=== PATIENT | male | born 1965 | race Caucasian/White ===

== ENCOUNTER 2020-08-16 08:34 | Outpatient (REF) | payer OTHER, SELFPAY ==
[2020-08-16 10:14] LABS: COVID-19 Test Negative (Negative)
== END 2020-08-16 08:35 | disposition home or self-care (01) ==
LOC: HO.LAB 08:34
PROVIDERS: Visit Provider Internal Medicine
DX: Z20.828 Contact with and (suspected) exposure to other viral communicable diseases (principal)
CPT/HCPCS: 87635

== ENCOUNTER 2020-08-20 09:48 | Outpatient (REF) | payer OTHER, SELFPAY ==
[2020-08-20 11:28] LABS: COVID-19 Test Negative (Negative)
== END 2020-08-20 09:49 | disposition home or self-care (01) ==
LOC: HO.LAB 09:48
PROVIDERS: PCP Internal Medicine; Visit Provider Internal Medicine
DX: Z20.828 Contact with and (suspected) exposure to other viral communicable diseases (principal)
CPT/HCPCS: 87635

== ENCOUNTER 2020-08-30 12:40 | Outpatient (REF) | payer OTHER, SELFPAY | END 2020-08-30 12:41 | disposition home or self-care (01) | LOC: HO.MDS 12:40 | PROVIDERS: PCP Internal Medicine; Visit Provider Internal Medicine Pulmonary Disease | DX: J45.909 Unspecified asthma, uncomplicated (principal) | CPT/HCPCS: 96372; J0517 ==

== ENCOUNTER 2020-09-04 15:52 | Outpatient (REF) | payer OTHER, SELFPAY ==
[2020-09-04 18:28] LABS: COVID-19 Test Negative (Negative)
== END 2020-09-04 15:53 | disposition home or self-care (01) ==
LOC: HO.LAB 15:52
PROVIDERS: Visit Provider Internal Medicine
DX: Z20.828 Contact with and (suspected) exposure to other viral communicable diseases (principal)
CPT/HCPCS: 87635; C9803

== ENCOUNTER 2020-10-02 08:55 | Outpatient (REF) | payer OTHER, SELFPAY ==
[2020-10-02 09:18] LABS: COVID-19 Test Negative (Negative)
== END 2020-10-02 08:56 | disposition home or self-care (01) ==
LOC: HO.EMPCOV 08:55
PROVIDERS: Visit Provider Internal Medicine
DX: Z20.828 Contact with and (suspected) exposure to other viral communicable diseases (principal)
CPT/HCPCS: 87635; C9803

== ENCOUNTER → 2020-10-04 09:05 | Outpatient (BNVA) | payer OTHER, SELFPAY | PROVIDERS: PCP Internal Medicine; Referring Provider Internal Medicine; Visit Provider Internal Medicine Pulmonary Disease | DX: Z76.89 Persons encountering health services in other specified circumstances (principal) ==

== ENCOUNTER 2020-10-05 07:49 | Outpatient (REF) | payer OTHER, SELFPAY ==
[2020-10-05 08:42] LABS: COVID-19 Test Negative (Negative)
== END 2020-10-05 07:50 | disposition home or self-care (01) ==
LOC: HO.EMPCOV 07:49
PROVIDERS: Visit Provider Internal Medicine
DX: Z20.828 Contact with and (suspected) exposure to other viral communicable diseases (principal)
CPT/HCPCS: 87635; C9803

== ENCOUNTER 2020-10-25 08:38 | Outpatient (REF) | payer OTHER, SELFPAY | END 2020-10-25 08:39 | disposition home or self-care (01) | LOC: HO.MDS 08:38 | PROVIDERS: PCP Internal Medicine; Visit Provider Internal Medicine Pulmonary Disease | DX: J45.50 Severe persistent asthma, uncomplicated (principal) | CPT/HCPCS: 96372; J0517 ==

== ENCOUNTER 2020-10-25 12:03 | Outpatient (RCR) | payer OTHER, SELFPAY ==
[2020-10-30 09:48] LABS: SARS-COV-2 PCR UMBRL Not Detected
[2020-11-07 09:52] LABS: SARS-COV-2 PCR UMBRL NOT DETECTED
[2020-11-11 09:59] LABS: SARS-COV-2 PCR UMBRL NEGATIVE
== END 2020-10-25 12:04 | disposition home or self-care (01) ==
LOC: HO.EMPCOV 12:03
PROVIDERS: Visit Provider Internal Medicine
DX: Z20.828 Contact with and (suspected) exposure to other viral communicable diseases (principal)
CPT/HCPCS: 36415; C9803; U0003

== ENCOUNTER 2020-12-20 08:22 | Outpatient (REF) | payer OTHER, SELFPAY | END 2020-12-20 08:23 | disposition home or self-care (01) | LOC: HO.MDS 08:22 | PROVIDERS: PCP Internal Medicine; Visit Provider Internal Medicine Pulmonary Disease | DX: J45.50 Severe persistent asthma, uncomplicated (principal) | CPT/HCPCS: 96372; J0517 ==

== ENCOUNTER → 2021-01-02 13:09 | Outpatient (BNVA) | payer OTHER, SELFPAY | PROVIDERS: PCP Internal Medicine; Visit Provider Physician Assistant | DX: Z13.89 Encounter for screening for other disorder (principal) | CPT/HCPCS: 99213 ==

== ENCOUNTER 2021-01-09 15:02 | Emergency (ER) | payer OTHER, SELFPAY ==
[2021-01-09 15:13] VITALS: BP 137/64; PULSE 85; RESP 26; TEMP 36.5; O2SAT 95; BMI 23.7
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
[2021-01-09 16:13] LABS: MANUAL DIFF FLAG NO
[2021-01-09 16:16] LABS: Basophils Percent Auto 0.1 % (0-2); Hematocrit 41.4 % (42-52); Hemoglobin 14.8 g/dl (14.0-18.0); Imm Gran Abs Auto 0.04 X10*3/uL (0.00-0.03); Imm Gran Pct Auto 0.6 % (0.0-0.4); Mean Corpuscular HGB Conc 35.7 g/dl (31.0-36.0); Mean Corpuscular Hemoglobin 31.2 pg (27.0-33.0); Mean Corpuscular Volume 87.3 fL (80-98); Mean Platelet Volume 9.8 fL (9.4-12.4); Monocytes Absolute Auto 0.6 X10*3/uL (0.1-1.2); Monocytes Percent Auto 9.1 % (2-11); Neutrophils Absolute Auto 4.2 X10*3/uL (2.0-8.3); Neutrophils Percent Auto 61.2 % (45-73); Platelet Count 189 X10*3/uL (160-400); Red Blood Count 4.74 X10*6/uL (4.60-5.80); Red Cell Distribution Width 11.9 % (11.0-16.0); White Blood Count 6.9 X10*3/uL (4.8-10.8)
[2021-01-09 16:42] LABS: Alanine Aminotransferase 14 U/L (0-40); Albumin Level 4.1 g/dL (3.5-5.0); Alkaline Phosphatase 78 U/L (39-117); Anion Gap 12 (12-20); Aspartate Amino Transferase 18 U/L (5-37); Bilirubin Direct 0.2 mg/dL (0.0-0.5); Bilirubin Total 0.7 mg/dL (0.0-1.0); Blood Urea Nitrogen 16 mg/dL (9-16); Calcium 8.9 mg/dL (8.4-10.2); Carbon Dioxide 26 mmol/L (22-29); Chloride 105 mmol/L (96-108); Creatinine Clr Calc Pharmacy 115.4; Estimated Glomerular Filt Rate > 60; Glucose Random 95 mg/dL (60-115); Potassium 3.9 mmol/L (3.3-5.1); Sodium 139 mmol/L (135-145); Total Protein 6.7 g/dL (6.5-8.0)
[2021-01-10 09:33] LABS: HBS Num1 5.35 mIU/mL (0-7.99); HBc Num1 0.09 S/CO (0.00-0.79); Hepatitis B Core Antibody Nonreactive (Nonreactive); ~HepC Num1 0.09 S/CO (0.00-0.79); ~Hepatitis B Surface Antibody NONREACTIVE (Nonreactive); ~Hepatitis C Antibody Nonreactive (Nonreactive)
[2021-01-10 10:02] LABS: HBsAGNum1 0.18 S/CO (0.00-0.99); HIV AB/AG Nonreactive (Nonreactive); HIV Num 1 0.07 S/CO (0.00-0.99); Hepatitis B Surface Antigen Negative (Negative)
== END 2021-01-09 17:12 | disposition home or self-care (01) ==
PROVIDERS: Physician Assistant Medical; Emergency Provider Internal Medicine; PCP Internal Medicine
DX: S60.572A Other superficial bite of hand of left hand, initial encounter (principal); S60.512A Abrasion of left hand, initial encounter; M79.642 Pain in left hand; Y04.1XXA Assault by human bite, initial encounter; Y93.9 Activity, unspecified; Y92.9 Unspecified place or not applicable; Y99.0 Civilian activity done for income or pay
CPT/HCPCS: 36415; 80048; 80076; 83735; 85025; 85610; 86704; 86706; 86803; 87340; 87389; 90471; 90715; 99284

== ENCOUNTER → 2021-01-11 09:43 | Outpatient (BNVA) | payer OTHER, SELFPAY | PROVIDERS: PCP Internal Medicine; Visit Provider Internal Medicine | DX: Z13.89 Encounter for screening for other disorder (principal) | CPT/HCPCS: 99213 ==

== ENCOUNTER 2021-02-14 09:07 | Outpatient (REF) | payer OTHER, SELFPAY | END 2021-02-14 09:08 | disposition home or self-care (01) | LOC: HO.MDS 09:07 | PROVIDERS: PCP Internal Medicine; Visit Provider Internal Medicine Pulmonary Disease | DX: J45.50 Severe persistent asthma, uncomplicated (principal) | CPT/HCPCS: 96372; J0517 ==

== ENCOUNTER → 2021-03-01 08:30 | Outpatient (BNVA) | payer OTHER, SELFPAY | PROVIDERS: PCP Internal Medicine; Visit Provider Physician Assistant Medical | DX: Z13.89 Encounter for screening for other disorder (principal) | CPT/HCPCS: 99201 ==

== ENCOUNTER 2021-04-11 08:06 | Outpatient (REF) | payer OTHER, SELFPAY | END 2021-04-11 08:07 | disposition home or self-care (01) | LOC: HO.MDS 08:06 | PROVIDERS: PCP Internal Medicine; Visit Provider Internal Medicine Pulmonary Disease | DX: J45.50 Severe persistent asthma, uncomplicated (principal) | CPT/HCPCS: 96372; J0517 ==

== ENCOUNTER 2021-06-19 08:54 | Outpatient (REF) | payer OTHER, SELFPAY | END 2021-06-19 08:55 | disposition home or self-care (01) | LOC: HO.MDS 08:54 | PROVIDERS: PCP Internal Medicine; Visit Provider Internal Medicine Pulmonary Disease | DX: J45.50 Severe persistent asthma, uncomplicated (principal) | CPT/HCPCS: 96372; J0517 ==

== ENCOUNTER 2021-07-17 14:06 | Outpatient (REF) | payer OTHER, SELFPAY ==
--- NOTE | ~2021-07-17 | XR_ITS ---
EXAMINATION: XR BILATERAL KNEE XR AP KNEES STANDING CLINICAL INFORMATION: Bilateral knee pain. COMPARISON: None. TECHNIQUE: AP bilateral knees standing. 2 views each knee. FINDINGS: Ap Bilateral Knee: There is loss of medial compartment joint space both knees. The lateral compartment joint space is normal. No visible acute fracture or dislocation seen. No lytic process. Right Knee: There is mild loss of patellofemoral compartment joint space without bony erosive changes. There is peripatellar enthesophyte. There are no loose bodies. No joint effusion visualized. The soft tissues are normal. Left Knee: There is mild loss of vertebral compartment joint space with peripatellar enthesophyte. No abnormal joint effusion or loose body seen. No visible acute fracture or dislocation. XR/XR knee RT 2V IMPRESSION: Mild degenerative changes medial and patellofemoral compartments of both knees with peripatellar enthesophytes. No abnormal joint effusion seen. No loose bodies.
--- NOTE | ~2021-07-17 | XR_ITS ---
EXAMINATION: XR BILATERAL KNEE XR AP KNEES STANDING CLINICAL INFORMATION: Bilateral knee pain. COMPARISON: None. TECHNIQUE: AP bilateral knees standing. 2 views each knee. FINDINGS: Ap Bilateral Knee: There is loss of medial compartment joint space both knees. The lateral compartment joint space is normal. No visible acute fracture or dislocation seen. No lytic process. Right Knee: There is mild loss of patellofemoral compartment joint space without bony erosive changes. There is peripatellar enthesophyte. There are no loose bodies. No joint effusion visualized. The soft tissues are normal. Left Knee: There is mild loss of vertebral compartment joint space with peripatellar enthesophyte. No abnormal joint effusion or loose body seen. No visible acute fracture or dislocation. XR/XR knee standing BI IMPRESSION: Mild degenerative changes medial and patellofemoral compartments of both knees with peripatellar enthesophytes. No abnormal joint effusion seen. No loose bodies.
--- NOTE | ~2021-07-17 | XR_ITS ---
EXAMINATION: XR BILATERAL KNEE XR AP KNEES STANDING CLINICAL INFORMATION: Bilateral knee pain. COMPARISON: None. TECHNIQUE: AP bilateral knees standing. 2 views each knee. FINDINGS: Ap Bilateral Knee: There is loss of medial compartment joint space both knees. The lateral compartment joint space is normal. No visible acute fracture or dislocation seen. No lytic process. Right Knee: There is mild loss of patellofemoral compartment joint space without bony erosive changes. There is peripatellar enthesophyte. There are no loose bodies. No joint effusion visualized. The soft tissues are normal. Left Knee: There is mild loss of vertebral compartment joint space with peripatellar enthesophyte. No abnormal joint effusion or loose body seen. No visible acute fracture or dislocation. XR/XR knee LT 2V IMPRESSION: Mild degenerative changes medial and patellofemoral compartments of both knees with peripatellar enthesophytes. No abnormal joint effusion seen. No loose bodies.
== END 2021-07-17 14:07 | disposition home or self-care (01) ==
LOC: HO.HOSX 14:06
PROVIDERS: PCP Internal Medicine; Visit Provider Physician Assistant
DX: M17.0 Bilateral primary osteoarthritis of knee (principal)
CPT/HCPCS: 20610; 73560; 73565; J1040

== ENCOUNTER 2021-08-14 08:08 | Outpatient (REF) | payer OTHER, SELFPAY | END 2021-08-14 08:09 | disposition home or self-care (01) | LOC: HO.MDS 08:08 | PROVIDERS: PCP Internal Medicine; Visit Provider Internal Medicine Pulmonary Disease | DX: J45.50 Severe persistent asthma, uncomplicated (principal) | CPT/HCPCS: 96372; J0517 ==

== ENCOUNTER 2021-09-30 10:59 | Emergency (ER) | payer OTHER, SELFPAY ==
--- NOTE | ~2021-09-30 | XR_ITS ---
EXAMINATION: XR CHEST CLINICAL INFORMATION: Cough and congestion. COVID negative. COMPARISON: Chest 01/05/2019 TECHNIQUE: 2 views of the chest were obtained. FINDINGS: No significant abnormality is noted involving the heart, lungs, mediastinum, bony thorax or soft tissues. XR/XR chest 2V IMPRESSION: Unremarkable chest examination.
[2021-09-30 11:13] VITALS: BP 116/62; PULSE 80; RESP 18; TEMP 36.9; O2SAT 96; BMI 23.7
[2021-09-30 11:57] LABS: Adenovirus PCR Not Detected (Not Detect.); Bordetella parapertussis PCR Not Detected (Not Detect.); Bordetella pertussis PCR Not Detected (Not Detect.); Chlamydia pneumoniae PCR Not Detected (Not Detect.); Coronavirus 229E PCR Not Detected (Not Detect.); Coronavirus HKU1 PCR Not Detected (Not Detect.); Coronavirus NL63 PCR Not Detected (Not Detect.); Coronavirus OC43 PCR Not Detected (Not Detect.); Human metapneumovirus PCR Not Detected (Not Detect.); Influenza A PCR Not Detected (Not Detect.); Influenza B PCR Not Detected (Not Detect.); Mycoplasma pneumoniae PCR Not Detected (Not Detect.); Parainfluenza 1 PCR Not Detected (Not Detect.); Parainfluenza 2 PCR Not Detected (Not Detect.); Parainfluenza 3 PCR Not Detected (Not Detect.); Parainfluenza 4 PCR Not Detected (Not Detect.); RSV PCR Not Detected (Not Detect.); SARS-CoV-2 PCR Not Detected (Not Detect.)
[2021-09-30 12:03] LABS: Influenza A PCR NEGATIVE (Negative); Influenza B PCR NEGATIVE (Negative); Resp Syncy Virus RNA Qual PCR NEGATIVE (Negative); SARS COV2 PCR INHOUSE NEGATIVE (Negative)
[2021-09-30 13:09] LABS: Rhino/Enterovirus PCR Detected (Not Detect.)
--- NOTE | 2021-09-30 14:13 | ED.GENADULT ---
HPI - General Adult General Chief complaint: General Medical Stated complaint: flu symptoms Time Seen by Provider: 09/30/21 11:39 Source: patient Mode of arrival: ambulatory History of Present Illness HPI narrative: 56-year-old male with a past medical history of asthma Presenting to the ED complaining flu-like symptoms x1 week. Reports nonproductive cough, nasal congestion, sinus pain. Reports 2 negative COVID tests recently however continued symptoms. Denies fever, chills, CP, SOB, recent travel, sick contacts Onset (ago): week(s) Radiation: non-radiation Severity: mild Related Data Home Medications Medication Instructions Recorded Confirmed benralizumab 30 mg/mL subcutaneous 30 mg SUBCUT Q8W 10/04/20 10/04/20 syringe (Fasenra) Previous Rx's Medication Instructions Recorded clindamycin HCl 300 mg capsule 600 mg PO TID 10 Days #60 cap 01/09/21 albuterol sulfate 90 mcg/actuation 1 inh INHALATION QID 30 Days #1 ea 03/21/21 aerosol inhaler (ProAir HFA) beclomethasone dipropionate 80 2 spray INTRANASAL DAILY 30 Days 03/21/21 mcg/actuation nasal HFA inhaler #10.6 g (QNASL) azithromycin 250 mg tablet See Rx Instructions PO .COMPLEX 5 04/17/21 Days #6 tab fluticasone 500 mcg-salmeterol 50 1 inh INHALATION BID 30 Days #1 ea 05/09/21 mcg/dose blistr powdr for inhalation montelukast 10 mg tablet 10 mg PO DAILY #30 tab 07/08/21 albuterol sulfate 90 mcg/actuation 2 puff INHALATION Q4-6H PRN #6.7 g 09/30/21 aerosol inhaler benzonatate 200 mg capsule 200 mg PO TID PRN #20 cap 09/30/21 fluticasone propionate 50 2 spray INTRANASAL DAILY #16 g 09/30/21 mcg/actuation nasal spray,suspension (Flonase Allergy Relief) Allergies Allergy/AdvReac Type Severity Reaction Status Date / Time penicillin V Allergy Unknown hives Verified 10/04/20 09:06 Penicillins [PCN] Allergy Unknown HIVES Verified 10/04/20 09:06 Review of Systems Review of Systems: Constitutional: No Fever, No Chills ENT/Mouth: No Ear Pain, + Nasal Congestion, + Sinus Pain, No Hoarseness, No sore throat, + Rhinorrhea, No Swallowing Difficulty Cardiovascular: No Chest Pain, No SOB Respiratory: + Cough, No Sputum, No Wheezing Gastrointestinal: No Nausea, No Vomiting, No Abdominal pain Genitourinary:, No Dysuria, No Urinary Frequency, No Flank Pain Musculoskeletal: No joint pain, + Myalgias, No Joint Swelling Skin: No Skin Lesions, No rash Neuro: No Weakness Yes all other systems are reviewed and are negative [facility] Past Medical History Attestation statement: The following information was validated with the patient. 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 Physical Exam Vital Signs: Vital Signs: Last Vital Signs Temp 98.4 F 09/30/21 11:13 Pulse 80 09/30/21 11:13 Resp 18 09/30/21 11:13 BP 116/62 09/30/21 11:13 Pulse Ox 96 09/30/21 11:13 BMI result Body Mass Index 23.7 Const: General: cooperative, healthy appearing and no acute distress Orientation/consciousness: patient oriented x3 Limitations: no limitations HENMT: Head: Yes normal to inspection Ears: hearing grossly normal bilaterally, external ears normal and mastoids normal General nose exam: Normal external nose present Face and sinus: Yes normal facial exam Eyes: General: appearance normal, both eyes and all related structures EOM: EOMs intact bilaterally Neck: Neck: Yes normal visual inspection, Yes no meningeal signs, Yes trachea midline, Yes supple and No anterior neck swelling Resp: Effort & Inspection: normal respiratory effort and no respiratory distress Auscultation: clear to auscultation bilaterally, no rales, no rhonchi and no wheezes Cardio: Rate: regular rate Heart sounds: S1 normal heart sound present and S2 normal heart sound present Skin: Rashes: no rashes Wounds: no wounds Neuro: General: patient oriented x3 and no meningeal signs Gait exam (Neuro): Normal gait present Extrem: General: Yes normal to inspection Course Course Course Narrative: XR chest 2V IMPRESSION: Unremarkable chest examination. -1417--rhinovirus positive Medical Decision Making [facility] Narrative Medical decision making narrative: 56-year-old male with a past medical history of asthma Presenting to the ED complaining flu-like symptoms x1 week. On exam vital signs stable, NAD/nontoxic, physical exam as above, lungs CTA. Concern for viral syndrome/COVID-19. Rule out pneumonia/bronchitis Plan: CXR, COVID-19 testing, respiratory viral panel Medical Records Medical records reviewed: Yes I reviewed the patient's medical records. Lab Data Lab results reviewed: Yes I reviewed the patient's lab results. Labs: Lab Results 09/30/21 09/30/21 Range/Units 11:17 11:17 Respiratory Panel [place] See Note Adenovirus (Rapid PCR) Not Detected (Not Detect.) B.pert (TEM-PCR) Not Detected (Not Detect.) B.parapertussis DNA PCR Not Detected (Not Detect.) C. pneumoniae DNA (PCR) Not Detected (Not Detect.) Coronavirus OC43 (PCR) Not Detected (Not Detect.) Coronavirus HKU1 (PCR) Not Detected (Not Detect.) Coronavirus 229E (PCR) Not Detected (Not Detect.) Coronavirus NL63 (PCR) Not Detected (Not Detect.) Human Metapneumovir PCR Not Detected (Not Detect.) Influenza A (RT-PCR) Not Detected (Not Detect.) Influenza Type A (PCR) NEGATIVE (Negative) Influenza B (RT-PCR) Not Detected (Not Detect.) Influenza Type B (PCR) NEGATIVE (Negative) M. pneumoniae (PCR) Not Detected (Not Detect.) Parainfluenza 1 (PCR) Not Detected (Not Detect.) Parainfluenza 2 (PCR) Not Detected (Not Detect.) Parainfluenza 3 (PCR) Not Detected (Not Detect.) Parainfluenza 4 (PCR) Not Detected (Not Detect.) RSV (PCR) Not Detected (Not Detect.) RSV RNA Qual (PCR) NEGATIVE (Negative) Entero/Rhino (PCR) Detected A (Not Detect.) SARS-CoV-2 RNA (RT-PCR) NEGATIVE Not Detected (Negative) Discharge Plan Discharge Clinical Impression: Acute viral syndrome Patient Disposition: Home, Self-Care Instructions: Viral Syndrome (ED) Additional Instructions: please take tessalon pearls for cough, albuterol inhaler for shortness or breath and wheezing flonase is a nasal decongestant follow up with your doctor as needed if symptoms persist or worsen you have high fevers, developed shortness breath or chest pain please return to the ED Prescriptions: New albuterol sulfate 90 mcg/actuation HFA aerosol inhaler 2 puff inhalation Q4-6H PRN (Reason: shortness of breath or wheezing) Qty: 6.7 RF: 0 benzonatate 200 mg capsule 200 mg PO TID PRN (Reason: cough) Qty: 20 RF: 0 fluticasone propionate [Flonase Allergy Relief] 50 mcg/actuation spray,suspension 2 spray intranasal DAILY Qty: 16 RF: 0 No Action QNASL 80 mcg/actuation HFA aerosol inhaler 2 spray intranasal DAILY 30 Days Qty: 10.6 RF: 1 albuterol sulfate [ProAir HFA] 90 mcg/actuation HFA aerosol inhaler 1 inh inhalation QID 30 Days Qty: 1 RF: 6 azithromycin 250 mg tablet See Rx Instructions PO .COMPLEX 5 Days Qty: 6 RF: 0 fluticasone propion-salmeterol 500-50 mcg/dose blister with device 1 inh inhalation BID 30 Days Qty: 1 RF: 6 montelukast 10 mg tablet 10 mg PO DAILY Qty: 30 RF: 0 clindamycin HCl 300 mg capsule 600 mg PO TID 10 Days Qty: 60 RF: 0 Fasenra 30 mg/mL syringe 30 mg subcut Q8W RF: 0 Referrals: Paulina Dietz MD [Primary Care Provider] - 5 days Stand Alone Forms: Work/School Release
== END 2021-09-30 14:20 | disposition home or self-care (01) ==
PROVIDERS: Physician Assistant Medical; Emergency Provider Emergency Medicine; PCP Internal Medicine
DX: B34.9 Viral infection, unspecified (principal); Z20.822 Contact with and (suspected) exposure to COVID-19; J45.909 Unspecified asthma, uncomplicated
CPT/HCPCS: 0241U; 36415; 71046; 87633; 99283

== ENCOUNTER 2021-10-09 09:22 | Outpatient (REF) | payer OTHER, SELFPAY | END 2021-10-09 09:23 | disposition home or self-care (01) | LOC: HO.MDS 09:22 | PROVIDERS: PCP Internal Medicine; Visit Provider Internal Medicine Pulmonary Disease | DX: J45.50 Severe persistent asthma, uncomplicated (principal) | CPT/HCPCS: 96372 ==

== ENCOUNTER → 2021-10-23 09:40 | Outpatient (BNVA) | payer OTHER, SELFPAY | PROVIDERS: PCP Internal Medicine; Visit Provider Physician Assistant | DX: Z13.89 Encounter for screening for other disorder (principal) | CPT/HCPCS: 99203 ==

== ENCOUNTER 2021-10-30 06:54 | Outpatient (REF) | payer OTHER, SELFPAY ==
[2021-10-30 07:21] LABS: COVID-19 Test Positive (Negative); IDNOW Serial# 9DD0AD1C
== END 2021-10-30 06:55 | disposition home or self-care (01) ==
LOC: HO.LAB 06:54
PROVIDERS: Visit Provider Internal Medicine
DX: Z20.822 Contact with and (suspected) exposure to COVID-19 (principal)
CPT/HCPCS: 87635

== ENCOUNTER → 2021-11-14 08:04 | Outpatient (BNVA) | payer OTHER, SELFPAY | PROVIDERS: PCP Internal Medicine; Visit Provider Internal Medicine | DX: Z13.89 Encounter for screening for other disorder (principal) | CPT/HCPCS: 99213 ==

== ENCOUNTER 2021-11-18 07:22 | Outpatient (REF) | payer OTHER, SELFPAY ==
--- NOTE | ~2021-11-18 | MR_ITS ---
MR CERVICAL SPINE WITHOUT CONTRAST CLINICAL INFORMATION: Left neck and shoulder pain with numbness in the left hand. COMPARISON: Cervical spine radiographs 09/12/2019. TECHNIQUE: MRI of the cervical spine was obtained using routine sequences without contrast. FINDINGS: Mild anterior subluxation of C3 on C4, C4 on C5, and C5 on C6. Vertebral body heights are maintained. Mild disc volume loss at C6-C7. There is bone marrow edema within the left C3 and C4 facets that in more mild bone marrow edema within the right C5 and C6 facets that is most likely degenerative or inflammatory. No additional bone marrow edema. No acute fractures. Vertebral body heights are maintained. The craniocervical junction is unremarkable. Partially imaged intracranial compartment is unremarkable. Accounting for artifact there is no cord signal abnormality. C2-C3: Disc contour is normal. Bilateral facet arthropathy. No central canal stenosis and no foraminal stenosis. C3-C4: Mild anterior subluxation. Advanced left-sided uncovertebral joint hypertrophy and hypertrophic facet arthropathy result in severe left-sided foraminal stenosis and mild to moderate right-sided foraminal stenosis. No significant central canal stenosis. C4-C5: Mild anterior subluxation. Uncovertebral joint spurring and facet arthropathy result in mild bilateral foraminal encroachment. C5-C6: Mild anterior subluxation. A left paracentral disc protrusion flattens left ventral cord and mildly narrows the central canal. Uncovertebral joint spurring and facet arthropathy result in mild to moderate bilateral foraminal encroachment. C6-C7: Advanced left-sided uncovertebral joint hypertrophy and hypertrophic facet arthropathy result in moderate to severe left foraminal stenosis. No central canal and no right foraminal stenosis. C7-T1: Disc contour is normal. No central canal stenosis and no foraminal stenosis. MR/MR cervical spine wo con IMPRESSION: - At C3-C4, advanced multifactorial degenerative changes result in severe left-sided foraminal stenosis and mild to moderate right-sided foraminal stenosis. - At C5-C6, a left paracentral disc protrusion flattens left ventral cord and mildly narrows the central canal and multifactorial degenerative changes result in mild to moderate bilateral foraminal stenosis. - At C6-C7, multifactorial degenerative changes result in moderate to severe left foraminal stenosis. - There is bone marrow edema within the left C3 and C4 facets that in more mild bone marrow edema within the right C5 and C6 facets that is most likely degenerative or inflammatory.
== END 2021-11-18 07:23 | disposition home or self-care (01) ==
LOC: HO.MRI 07:22
PROVIDERS: PCP Internal Medicine; Visit Provider Internal Medicine
DX: M54.2 Cervicalgia (principal); M25.512 Pain in left shoulder; R20.0 Anesthesia of skin
CPT/HCPCS: 72141

== ENCOUNTER → 2021-11-25 08:09 | Outpatient (BNVA) | payer OTHER, SELFPAY | PROVIDERS: PCP Internal Medicine; Visit Provider Internal Medicine | DX: Z13.89 Encounter for screening for other disorder (principal) | CPT/HCPCS: 99213 ==

== ENCOUNTER 2021-12-05 09:11 | Outpatient (REF) | payer OTHER, SELFPAY | END 2021-12-05 09:12 | disposition home or self-care (01) | LOC: HO.MDS 09:11 | PROVIDERS: PCP Internal Medicine; Visit Provider Internal Medicine Pulmonary Disease | DX: J45.50 Severe persistent asthma, uncomplicated (principal) | CPT/HCPCS: 96372; J0517 ==

== ENCOUNTER → 2021-12-10 09:29 | Outpatient (BNVA) | payer OTHER, SELFPAY | PROVIDERS: PCP Internal Medicine; Visit Provider Internal Medicine | DX: Z13.89 Encounter for screening for other disorder (principal) | CPT/HCPCS: 99213 ==

== ENCOUNTER → 2021-12-13 09:36 | Outpatient (BNVA) | payer OTHER, SELFPAY | PROVIDERS: PCP Internal Medicine; Visit Provider Internal Medicine | DX: Z13.89 Encounter for screening for other disorder (principal) | CPT/HCPCS: 99213 ==

== ENCOUNTER → 2021-12-17 11:24 | Outpatient (BNVA) | payer OTHER, SELFPAY | PROVIDERS: PCP Internal Medicine; Visit Provider Internal Medicine | DX: Z13.89 Encounter for screening for other disorder (principal) | CPT/HCPCS: 99213 ==

== ENCOUNTER → 2021-12-20 10:09 | Outpatient (BNVA) | payer OTHER, SELFPAY | PROVIDERS: PCP Internal Medicine; Visit Provider Internal Medicine | DX: Z13.89 Encounter for screening for other disorder (principal) | CPT/HCPCS: 99213 ==

== ENCOUNTER → 2021-12-24 10:01 | Outpatient (BNVA) | payer OTHER, SELFPAY | PROVIDERS: PCP Internal Medicine; Visit Provider Internal Medicine | DX: Z13.89 Encounter for screening for other disorder (principal) | CPT/HCPCS: 99213 ==

== ENCOUNTER 2021-12-26 11:00 | Outpatient (RCR) | payer OTHER, SELFPAY ==
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
== END 2022-01-07 08:00 | disposition home or self-care (01) ==
LOC: HO.PT 11:00
PROVIDERS: PCP Internal Medicine; Visit Provider Internal Medicine
DX: M25.512 Pain in left shoulder (principal); M54.2 Cervicalgia
CPT/HCPCS: 97012; 97110; 97112; 97140; 97162; 97530

== ENCOUNTER → 2021-12-27 10:40 | Outpatient (BNVA) | payer OTHER, SELFPAY | PROVIDERS: PCP Internal Medicine | DX: Z13.89 Encounter for screening for other disorder (principal) | CPT/HCPCS: 99213 ==

== ENCOUNTER → 2021-12-30 15:23 | Outpatient (BNVA) | payer OTHER, SELFPAY | PROVIDERS: PCP Internal Medicine; Visit Provider Nurse Practitioner Family | DX: M47.22 Other spondylosis with radiculopathy, cervical region (principal); M48.02 Spinal stenosis, cervical region; M25.512 Pain in left shoulder | CPT/HCPCS: 99202 ==

== ENCOUNTER 2022-01-08 06:19 | Outpatient (REF) | payer OTHER, SELFPAY ==
--- NOTE | ~2022-01-08 | FL_ITS ---
EXAMINATION: XR FLUOROSCOPY WITH IMAGES CLINICAL INFORMATION: M47.22 - Other spondylosis with radiculopathy, cervical COMPARISON: MR cervical spine 11/18/2021 TECHNIQUE: Fluoroscopy performed by Dr. Sage Kramer. Fluoroscopy time: 0.9 minutes DAP: 2.77 Gycm2 Images: 2 FINDINGS: There is an interlaminar spinal needle at the posterior lower cervical spine with tip just left of midline. There is epidural contrast demonstrated. No visible vascular communication. FL/FL guidance in treatment room IMPRESSION: Fluoroscopy for pain management procedure.
== END 2022-01-08 06:20 | disposition home or self-care (01) ==
LOC: HO.RADIR 06:19
PROVIDERS: Visit Provider Internal Medicine
DX: M47.22 Other spondylosis with radiculopathy, cervical region (principal); M48.02 Spinal stenosis, cervical region
CPT/HCPCS: 62321

== ENCOUNTER → 2022-01-10 09:55 | Outpatient (BNVA) | payer OTHER, SELFPAY | PROVIDERS: PCP Internal Medicine; Visit Provider Internal Medicine | DX: G97.1 Other reaction to spinal and lumbar puncture (principal) | CPT/HCPCS: 99212 ==

== ENCOUNTER 2022-01-10 09:59 | Emergency (ER) | payer OTHER, SELFPAY ==
--- NOTE | ~2022-01-10 | CT_ITS ---
EXAMINATION: CT angio head CLINICAL INFORMATION: Headache. Evaluate for injury. COMPARISON: CT scan of the head 01/10/2022. TECHNIQUE: Hat Cutter images were obtained. A CT angiogram of the head was performed in the arterial phase after the intravenous administration of 75 mL Omnipaque 350. Delayed postcontrast images of the head were also obtained. MIP reconstructions were generated in multiple orientations at the acquisition workstation. Multiple three-dimensional surface rendered images and maximum intensity projection images were generated on a dedicated 3-D lab workstation. Arterial stenoses are measured in accordance with NASCET criteria or similar method if applicable. This CT examination was performed using dose optimization techniques as appropriate, including one or more of the following: Automated exposure control, iterative reconstruction, and adjustment of technique factors (mA and/or kVp) according to patient size (this includes techniques or standardized protocols for targeted exams where dose is matched to indication/reason for exam). Total exam dose-length product 2052 mGy-cm FINDINGS: Head: Delayed postcontrast images reveal no abnormal mass or enhancement within the intracranial compartment. No intracranial mass effect or midline shift. Lateral and third ventricles are normal. [place]. Huertas-white matter differentiation is preserved and there is no evidence of acute territorial infarct. The calvarium and skull base are intact. Mastoid air cells and middle ear cavities are well aerated. Mild to moderate paranasal sinus disease primarily affecting the ethmoid air cells and frontal sinus. CT angiogram head: The visualized extra cranial internal carotid arteries are patent. Intracranial internal carotid arteries are patent. Intradural vertebral artery segments and basilar artery are patent. Anterior, middle, and posterior cerebral artery complexes are normal. No intracranial large vessel occlusion. No evidence of aneurysm or high flow vascular malformation. CT/CT angio head IMPRESSION: Unremarkable examination in that there is no intracranial large vessel occlusion. No evidence of aneurysm or high flow vascular malformation. As seen on recent CT imaging of the head there is mild to moderate paranasal sinus disease primarily affecting the ethmoid air cells and frontal sinus.
--- NOTE | ~2022-01-10 | CT_ITS ---
EXAMINATION: CT HEAD WITHOUT CONTRAST CLINICAL INFORMATION: Headache COMPARISON: None TECHNIQUE: Contiguous axial imaging was performed from the skull base to vertex without intravenous administration of contrast. This CT examination was performed using dose optimization techniques as appropriate, variously including the following: *Automated exposure control *Adjustment of mA and/or kV according to patient size (this includes techniques or standardized protocols for targeted exams where dose is matched to indication/reason for exam; i.e. extremities or head) *Use of iterative reconstruction technique DLP: 797 mGy-cm FINDINGS: There is no evidence of acute intracranial hemorrhage or territorial infarction. No abnormal mass effect or midline shift is seen. Huertas to white matter differentiation is well preserved. No extra-axial fluid collections are identified. The ventricles are normal in size. There is no abnormal attenuation within the brain parenchyma. The osseous structures and soft tissues are normal. There is mild mucoperiosteal thickening right frontal, bilateral ethmoid and left sphenoid sinuses. Rest of the paranasal sinuses and mastoid air cells are well-aerated. CT/CT head/brain wo con IMPRESSION: No acute intracranial process seen. Chronic bilateral ethmoid, right frontal and left sphenoid sinus inflammatory changes.
[2022-01-10 10:06] VITALS: BP 130/73; PULSE 84; RESP 16; TEMP 37.2; O2SAT 96; BMI 24.6
--- NOTE | 2022-01-10 10:14 | ECG_ITS ---
Test Reason : dizziness Blood Pressure : / mmHG Vent. Rate : 076 BPM Atrial Rate : 076 BPM P-R Int : 158 ms QRS Dur : 098 ms QT Int : 366 ms P-R-T Axes : 073 047 050 degrees QTc Int : 411 ms Normal sinus rhythm Normal ECG No previous ECGs available Referred By: Enriqueta Bailey Electronically Signed By:CARI LIANG
[2022-01-10] MEDS: 0.9 % Sodium Chloride 1,000 ML 999 ML IV ×2 (10:18→12:01)
[2022-01-10] MEDS: Meclizine HCl 25 MG TABLET PO (10:18)
--- NOTE | 2022-01-10 10:24 | PC.NURSE ---
no unilat neruo deficits. states headache is the worse he's ever experienced. denies nausea. per patient had attempt for cortisone injection on thursday which didnt work d/t thin epidural . pain management wondered if blood patch would be helpful. nsr on monitor.
[2022-01-10 10:27] VITALS: RESP 20
[2022-01-10 10:30] LABS: MANUAL DIFF FLAG NO
[2022-01-10 10:32] LABS: Basophils Percent Auto 0.2 % (0-2); Hematocrit 42.9 % (42.0-52.0); Imm Gran Abs Auto 0.04 X10*3/uL (0.00-0.03); Imm Gran Pct Auto 0.5 % (0.0-0.4); Lymphocytes Absolute Auto 1.4 X10*3/uL (1.2-4.9); Lymphocytes Percent Auto 15.9 % (20-40); Mean Corpuscular Hemoglobin 30.8 pg (27.0-33.0); Mean Corpuscular Volume 88.1 fL (80.0-98.0); Mean Platelet Volume 10.1 fL (9.4-12.4); Monocytes Absolute Auto 0.5 X10*3/uL (0.1-1.2); Monocytes Percent Auto 5.9 % (2-11); Neutrophils Absolute Auto 6.7 x10*3/uL (2.0-8.3); Neutrophils Percent Auto 77.5 % (45-73); Platelet Count 192 X10*3/uL (160-400); Red Blood Count 4.87 X10*6/uL (4.60-5.80); White Blood Count 8.6 X10*3/uL (4.8-10.8)
[2022-01-10 10:52] LABS: Anion Gap 12 (12-20); Blood Urea Nitrogen 10 mg/dL (9-16); Calcium 9.3 mg/dL (8.4-10.2); Carbon Dioxide 25 mmol/L (22-29); Chloride 107 mmol/L (96-108); Creatinine Clr Calc Pharmacy 102.1; Estimated Glomerular Filt Rate > 60; Glucose Random 124 mg/dL (60-115); Potassium 4.1 mmol/L (3.3-5.1); Sodium 140 mmol/L (135-145)
[2022-01-10 11:26] VITALS: BP 113/64; PULSE 75; RESP 18; O2SAT 97
--- NOTE | 2022-01-10 11:27 | PC.NURSE ---
reports persistent dizziness and headache. no relief.
--- NOTE | 2022-01-10 11:27 | PC.NURSE ---
headache worse with movement.
--- NOTE | 2022-01-10 11:48 | ED_ITS ---
HPI - Headache General Chief Complaint: Dizziness Stated Complaint: dizzy weakness Time Seen by Provider: 01/10/22 10:08 Source: patient Mode of arrival: ambulatory Limitations: no limitations History of Present Illness HPI Narrative: 56 years old male status post cervical spine epidural injection 2 days ago by , the procedure was not completed because the sink the puncture the epidural, patient felt fine until today he was sitting on his desk working when he had a sudden abrupt onset of severe headache with dizziness more when he moves his head backward, patient never had a headache in the past, no fever, no chills, no weakness, no numbness, no chest pain. Family history of brain tumor. Related Data Home Medications Medication Instructions Recorded Confirmed benralizumab 30 mg/mL subcutaneous 30 mg SUBCUT Q8W 10/04/20 10/04/20 syringe (Fasenra) fluconazole 100 mg tablet 100 mg PO DAILY 12/30/21 gabapentin 300 mg capsule 300 mg PO BEDTIME 12/30/21 naproxen 500 mg tablet 500 mg PO BID 12/30/21 tamsulosin 0.4 mg capsule 0.8 mg PO DAILY 12/30/21 Previous Rx's Medication Instructions Recorded clindamycin HCl 300 mg capsule 600 mg PO TID 10 Days #60 cap 01/09/21 albuterol sulfate 90 mcg/actuation 1 inh INHALATION QID 30 Days #1 ea 03/21/21 aerosol inhaler (ProAir HFA) beclomethasone dipropionate 80 2 spray INTRANASAL DAILY 30 Days 03/21/21 mcg/actuation nasal HFA inhaler #10.6 g (QNASL) azithromycin 250 mg tablet See Rx Instructions PO .COMPLEX 5 04/17/21 Days #6 tab fluticasone 500 mcg-salmeterol 50 1 inh INHALATION BID 30 Days #1 ea 05/09/21 mcg/dose blistr powdr for inhalation montelukast 10 mg tablet 10 mg PO DAILY #30 tab 07/08/21 albuterol sulfate 90 mcg/actuation 2 puff INHALATION Q4-6H PRN #6.7 g 09/30/21 aerosol inhaler benzonatate 200 mg capsule 200 mg PO TID PRN #20 cap 09/30/21 fluticasone propionate 50 2 spray INTRANASAL DAILY #16 g 09/30/21 mcg/actuation nasal spray,suspension (Flonase Allergy Relief) baclofen 10 mg tablet 10 mg PO BID PRN 60 Days #60 tab 12/30/21 hsfgpjvdxr-gbuxodrowaaug-vciudlmu 1 cap PO Q4-6H PRN #20 cap 01/10/22 50 mg-325 mg-40 mg capsule Allergies Allergy/AdvReac Type Severity Reaction Status Date / Time Penicillins [PCN] Allergy Unknown HIVES Verified 01/08/22 11:05 Review of Systems 2 Review of Systems: All other systems are reviewed and are negative Constitutional: Reports as per HPI and Reports no additional constitutional complaints Eyes: Reports as per HPI and Reports no additional eye complaints Reports system reviewed and no additional complaints, except as documented Cardiovascular: Reports as per HPI and Reports no additional cardiovascular complaints Respiratory: Reports as per HPI and Reports no additional respiratory complaints Gastrointestinal: Reports as per HPI and Reports no additional gastrointestinal complaints Genitourinary: Reports no additional female genitourinary complaints Musculoskeletal: Reports no additional musculoskeletal complaints Skin/Breast: Reports system reviewed and no additional complaints, except as docu Psychiatric: Reports no additional psychiatric complaints Endocrine: Reports no additional endocrine complaints Hematologic/Lymphatic: Reports no additional hematologic/lymphatic complaints Allergic/Immunologic: Reports no additional allergic/immunologic complaints Reports system reviewed and no additional complaints, except as documented and Reports Abnormal speech present [facility] Past Medical History Medical History Asthma Surgical History H/O left knee surgery H/O right knee surgery Social History Social History Alcohol intake: current Alcohol intake frequency: holidays/special occasions only Patient Tobacco Use Status: Never used Tobacco Use of substances other than those prescribed or required for medical reasons: No Advance Directives: Yes Advance Directives Information Provided: Yes Advance Directives on File: No Current occupational status: employed 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 Blood pressure normal. Heart rate normal. Respiration rate normal. Temperature normal. Oxygen saturation normal. Appearance: Alert. Oriented X3. No acute distress. Head: Normal external exam. Normocephalic. Atraumatic. No Interiano signs noted. No raccoon eyes noted Eyes: PERRLA. EOMI. Conjunctiva and sclera normal. Eyelids normal. ENT: TM's Normal. Pharynx normal. Uvula midline. Moist mucous membranes. No trismus noted. No drooling noted. No muffled voice noted. Neck: Normal inspection. Neck supple. FROM. No adenopathy. Thyroid Normal. No meningeal signs. No neck mass noted. CVS: Normal heart rate and rhythm. Heart sound normal. No murmurs noted. Pulses normal throughout. Respiratory: No respiratory distress. Painless inspiration. Breath sounds normal. No wheezes/rales/rhonchi noted. Chest nontender. No accessory muscle usage noted or decreased air movement noted. Abdomen: Soft and nontender. Bowel sounds normal in all 4 quadrants. No distention noted. No organomegaly noted. No visible injury noted. Back: No CVA tenderness. Full range of motion noted. Skin: Skin warm and dry. Normal skin color. Normal skin turgor. No rashes/lesions/lacerations noted. Extremities: No lower extremity edema. Extremities exhibit normal range of motion. Extremities nontender. Neuro: Oriented X 3. Cranial nerve exam: II-XII are grossly intact No motor deficit. No sensory deficit. Reflexes normal. Course Course Course Narrative: Assessment and plan. 56-year-old male came in with a headache, normally patient do not get headaches, patient also had epidural injection in the cervical spine 2 days ago, patient had a negative CT head with normal neurological exam, patient will get head CT angiogram to rule out cerebral aneurysm if negative patient should go home with rest, hydration, refrain from noise/ light / phones/computer /TV. Case signed out to Dr. Romero to check on the CT angio. [facility] - Headache Medical Records Attestation: I reviewed the patient's medical records. Lab Data Attestation: I reviewed the patient's lab results. Result diagrams: 01/10/22 10:23 01/10/22 10:23 Labs: Lab Results 03/18/22 03/18/22 Range/Units 10:23 10:23 WBC 8.6 (4.8-10.8) X10*3/uL RBC 4.87 (4.60-5.80) X10*6/uL Hgb 15.0 (14.0-18.0) g/dl Hct 42.9 (42.0-52.0) % MCV 88.1 (80.0-98.0) fL MCH 30.8 (27.0-33.0) pg MCHC 35.0 (31.0-36.0) g/dl RDW 12.0 (11.0-16.0) % Plt Count 192 (160-400) X10*3/uL MPV 10.1 (9.4-12.4) fL Immature Gran % (Auto) 0.5 H (0.0-0.4) % Neut % (Auto) 77.5 H (45-73) % Lymph % (Auto) 15.9 L (20-40) % [place] % (Auto) 5.9 (2-11) % Eos % (Auto) 0.0 (0-4) % Baso % (Auto) 0.2 (0-2) % Lymph # (Auto) 1.4 (1.2-4.9) X10*3/uL [place] # (Auto) 0.5 (0.1-1.2) X10*3/uL Eos # (Auto) 0.0 (0.0-0.4) X10*3/uL Baso # (Auto) 0.0 (0.0-0.2) X10*3/uL Abs Immat Gran (auto) 0.04 H (0.00-0.03) X10*3/uL Absolute Neuts (auto) 6.7 (2.0-8.3) x10*3/uL Absolute Nucleated RBC 0.000 (0.0-0.012) X10*3/uL Nucleated RBC % (auto) 0.0 (0.0-0.2) /100WBC Sodium 140 (135-145) mmol/L Potassium 4.1 (3.3-5.1) mmol/L Chloride 107 (96-108) mmol/L Carbon Dioxide 25 (22-29) mmol/L Anion Gap 12 (12-20) BUN 10 (9-16) mg/dL Creatinine 0.86 (0.5-1.4) mg/dL Estim Creat Clear Calc 102.1 Estimated GFR > 60 Random Glucose 124 H (60-115) mg/dL Calcium 9.3 (8.4-10.2) mg/dL Imaging Data Head CT: Attestation: I personally reviewed and interpreted this imaging study as follows: Radiologist's impression: no acute intracranial process seen. Discharge Plan Discharge Clinical Impression: Headache, post-lumbar puncture Patient Disposition: Home, Self-Care Instructions: Acute Headache (DC) Additional Instructions: 1. Rest 2. Oral hydration. 3. Contact Dr Kramer 4. avoid using phone/TV / computer for prolonged time. Prescriptions: No Action QNASL 80 mcg/actuation HFA aerosol inhaler 2 spray intranasal DAILY 30 Days Qty: 10.6 1RF Rx Instructions: administer into one nostril albuterol sulfate [ProAir HFA] 90 mcg/actuation HFA aerosol inhaler 1 inh inhalation QID 30 Days Qty: 1 6RF azithromycin 250 mg tablet See Rx Instructions PO .COMPLEX 5 Days Qty: 6 0RF Rx Instructions: take 500 mg today (day 1), then 250 mg for 4 days (days 2-5) PO fluticasone propion-salmeterol 500-50 mcg/dose blister with device 1 inh inhalation BID 30 Days Qty: 1 6RF montelukast 10 mg tablet 10 mg PO DAILY Qty: 30 0RF clindamycin HCl 300 mg capsule 600 mg PO TID 10 Days Qty: 60 0RF albuterol sulfate 90 mcg/actuation HFA aerosol inhaler 2 puff inhalation Q4-6H PRN (Reason: shortness of breath or wheezing) Qty: 6.7 0RF benzonatate 200 mg capsule 200 mg PO TID PRN (Reason: cough) Qty: 20 0RF fluticasone propionate [Flonase Allergy Relief] 50 mcg/actuation spray, suspension 2 spray intranasal DAILY Qty: 16 0RF Rx Instructions: administer into each nostril Fasenra 30 mg/mL syringe 30 mg subcut Q8W 0RF naproxen 500 mg tablet 500 mg PO BID 0RF gabapentin 300 mg capsule 300 mg PO BEDTIME 0RF tamsulosin 0.4 mg capsule 0.8 mg PO DAILY 0RF fluconazole 100 mg tablet 100 mg PO DAILY 0RF baclofen 10 mg tablet 10 mg PO BID PRN (Reason: muscle spasm) 60 Days Qty: 60 3RF [id number]-abltyysocjudx-xldu 50-325-40 mg capsule 1 cap PO Q4-6H PRN (Reason: pain) Qty: 20 0RF Referrals: Paulina Dietz MD [Primary Care Provider] - 2 days Stand Alone Forms: Work/School Release
--- NOTE | 2022-01-10 12:06 | PC.NURSE ---
reports slight improvement in sx, most notable when ambulating.
[2022-01-10] MEDS: iohexoL 350 MG/ML 100 ML INFUS..BTL IV (12:41)
[2022-01-10] MEDS: Ketorolac Tromethamine 15 MG/ML VIAL IVPUSH (14:04)
[2022-01-10 14:34] VITALS: BP 124/70; PULSE 64; RESP 18; O2SAT 98
== END 2022-01-10 14:52 | disposition home or self-care (01) ==
PROVIDERS: Emergency Medicine; Emergency Provider Emergency Medicine; PCP Internal Medicine
DX: G97.1 Other reaction to spinal and lumbar puncture (principal); R51.9 Headache, unspecified
CPT/HCPCS: 36415; 70450; 70496; 80048; 85025; 93005; 96361; 96374; 99284; 99285; J1885; Q9967

== ENCOUNTER → 2022-01-14 14:54 | Outpatient (BNVA) | payer SELFPAY | PROVIDERS: PCP Internal Medicine; Visit Provider Internal Medicine | DX: Z13.89 Encounter for screening for other disorder (principal) ==

== ENCOUNTER → 2022-01-17 09:55 | Outpatient (BNVA) | payer OTHER, SELFPAY | PROVIDERS: PCP Internal Medicine; Visit Provider Internal Medicine | DX: Z13.89 Encounter for screening for other disorder (principal) | CPT/HCPCS: 99213 ==

== ENCOUNTER → 2022-01-20 07:59 | Outpatient (BNVA) | payer OTHER, SELFPAY | PROVIDERS: PCP Internal Medicine; Visit Provider Internal Medicine | DX: Z13.89 Encounter for screening for other disorder (principal) | CPT/HCPCS: 99213 ==

== ENCOUNTER 2022-01-30 08:23 | Outpatient (REF) | payer OTHER, SELFPAY | END 2022-01-30 08:24 | disposition home or self-care (01) | LOC: HO.MDS 08:23 | PROVIDERS: PCP Internal Medicine; Visit Provider Internal Medicine Pulmonary Disease | DX: J45.50 Severe persistent asthma, uncomplicated (principal) | CPT/HCPCS: 96372; J0517 ==

== ENCOUNTER → 2022-01-31 08:36 | Outpatient (BNVA) | payer OTHER, SELFPAY | PROVIDERS: PCP Internal Medicine; Visit Provider Internal Medicine | DX: Z13.89 Encounter for screening for other disorder (principal) | CPT/HCPCS: 99213 ==

== ENCOUNTER 2022-02-05 07:32 | Outpatient (REF) | payer OTHER, SELFPAY ==
[2022-02-05 07:49] LABS: MANUAL DIFF FLAG NO
[2022-02-05 08:01] LABS: Basophils Percent Auto 0.3 % (0-2); Hemoglobin 15.1 g/dl (14.0-18.0); Imm Gran Abs Auto 0.06 X10*3/uL (0.00-0.03); Lymphocytes Absolute Auto 1.3 X10*3/uL (1.2-4.9); Lymphocytes Percent Auto 22.9 % (20-40); Mean Corpuscular Hemoglobin 31.5 pg (27.0-33.0); Mean Corpuscular Volume 87.5 fL (80.0-98.0); Monocytes Absolute Auto 0.5 X10*3/uL (0.1-1.2); Monocytes Percent Auto 9.1 % (2-11); Neutrophils Absolute Auto 3.9 x10*3/uL (2.0-8.3); Neutrophils Percent Auto 66.7 % (45-73); Platelet Count 176 X10*3/uL (160-400); Red Cell Distribution Width 12.1 % (11.0-16.0); White Blood Count 5.9 X10*3/uL (4.8-10.8)
[2022-02-05 08:24] LABS: Alanine Aminotransferase 18 U/L (0-40); Albumin Level 4.3 g/dL (3.5-5.0); Alkaline Phosphatase 80 U/L (39-117); Anion Gap 12 (12-20); Aspartate Amino Transferase 19 U/L (5-37); Bilirubin Total 0.5 mg/dL (0.0-1.0); Blood Urea Nitrogen 11 mg/dL (9-16); Calcium 9.4 mg/dL (8.4-10.2); Carbon Dioxide 26 mmol/L (22-29); Chloride 107 mmol/L (96-108); Cholesterol 189 mg/dL; Estimated Glomerular Filt Rate > 60; Glucose Random 92 mg/dL (60-115); HDL Cholesterol 47 mg/dL; LDL Cholesterol Calculated 112 mg/dl; Potassium 3.9 mmol/L (3.3-5.1); Sodium 141 mmol/L (135-145); Total Protein 6.9 g/dL (6.5-8.0); Triglycerides 151 mg/dL
== END 2022-02-05 07:33 | disposition home or self-care (01) ==
LOC: HO.LAB 07:32
PROVIDERS: PCP Internal Medicine; Visit Provider Nurse Practitioner Family
DX: Z00.00 Encounter for general adult medical examination without abnormal findings (principal); J45.40 Moderate persistent asthma, uncomplicated; J44.9 Chronic obstructive pulmonary disease, unspecified; K90.0 Celiac disease; N40.0 Benign prostatic hyperplasia without lower urinary tract symptoms
CPT/HCPCS: 36415; 80053; 80061; 85025

== ENCOUNTER → 2022-03-13 11:42 | Outpatient (BNVA) | payer OTHER, SELFPAY | PROVIDERS: PCP Internal Medicine; Visit Provider Internal Medicine | DX: Z13.89 Encounter for screening for other disorder (principal) | CPT/HCPCS: 99213 ==

== ENCOUNTER 2022-03-28 07:37 | Outpatient (REF) | payer OTHER, SELFPAY | END 2022-03-28 07:38 | disposition home or self-care (01) | LOC: HO.MDS 07:37 | PROVIDERS: PCP Internal Medicine; Visit Provider Internal Medicine Pulmonary Disease | DX: J45.50 Severe persistent asthma, uncomplicated (principal) | CPT/HCPCS: 96372; J0517 ==

== ENCOUNTER → 2022-05-23 11:22 | Outpatient (BNVA) | payer OTHER, SELFPAY | PROVIDERS: PCP Internal Medicine; Visit Provider Internal Medicine | DX: Z13.89 Encounter for screening for other disorder (principal) | CPT/HCPCS: 99213 ==

== ENCOUNTER 2022-05-26 09:24 | Outpatient (REF) | payer OTHER, SELFPAY | END 2022-05-26 09:25 | disposition home or self-care (01) | LOC: HO.MDS 09:24 | PROVIDERS: Visit Provider Internal Medicine Pulmonary Disease | DX: J45.50 Severe persistent asthma, uncomplicated (principal) | CPT/HCPCS: 96372; J0517 ==

== ENCOUNTER 2022-07-08 09:00 | Outpatient (RCR) | payer OTHER, SELFPAY ==
[2022-05-19 10:06] VITALS: BP 133/60; PULSE 85; O2SAT 95
== END 2022-07-21 15:28 | disposition home or self-care (01) ==
LOC: HO.PT 09:00
PROVIDERS: PCP Internal Medicine; Visit Provider Orthopaedic Surgery
DX: M43.22 Fusion of spine, cervical region (principal); Z98.1 Arthrodesis status
CPT/HCPCS: 97035; 97110; 97140; 97162; 97530

== ENCOUNTER → 2022-07-10 10:50 | Outpatient (BNVA) | payer OTHER, SELFPAY | PROVIDERS: PCP Internal Medicine; Visit Provider Internal Medicine | DX: Z13.89 Encounter for screening for other disorder (principal) | CPT/HCPCS: 99213 ==

== ENCOUNTER 2022-07-21 10:30 | Outpatient (REF) | payer OTHER, SELFPAY | END 2022-07-21 10:31 | disposition home or self-care (01) | LOC: HO.MDS 10:30 | PROVIDERS: Visit Provider Internal Medicine Pulmonary Disease | DX: J45.50 Severe persistent asthma, uncomplicated (principal) | CPT/HCPCS: 96372; J0517 ==

== ENCOUNTER → 2022-09-03 08:36 | Outpatient (BNVA) | payer OTHER, SELFPAY | PROVIDERS: PCP Internal Medicine | DX: Z13.89 Encounter for screening for other disorder (principal) | CPT/HCPCS: 99211 ==

== ENCOUNTER 2022-09-15 09:20 | Outpatient (REF) | payer OTHER, SELFPAY | END 2022-09-15 09:21 | disposition home or self-care (01) | LOC: HO.MDS 09:20 | PROVIDERS: Visit Provider Internal Medicine Pulmonary Disease | DX: J45.50 Severe persistent asthma, uncomplicated (principal) | CPT/HCPCS: 96372; J0517 ==

== ENCOUNTER 2022-11-10 09:46 | Outpatient (REF) | payer OTHER, SELFPAY | END 2022-11-10 09:47 | disposition home or self-care (01) | LOC: HO.MDS 09:46 | PROVIDERS: Visit Provider Internal Medicine Pulmonary Disease | DX: J45.50 Severe persistent asthma, uncomplicated (principal) | CPT/HCPCS: 96372; J0517 ==

== ENCOUNTER 2023-01-05 09:53 | Outpatient (REF) | payer OTHER, SELFPAY | END 2023-01-05 09:54 | disposition home or self-care (01) | LOC: HO.MDS 09:53 | PROVIDERS: Visit Provider Internal Medicine Pulmonary Disease | DX: J45.50 Severe persistent asthma, uncomplicated (principal) | CPT/HCPCS: 96372; J0517 ==

== ENCOUNTER → 2023-02-04 09:03 | Outpatient (BNVA) | payer OTHER, SELFPAY | PROVIDERS: PCP Internal Medicine | DX: Z13.89 Encounter for screening for other disorder (principal) | CPT/HCPCS: 99202 ==

== ENCOUNTER 2023-03-02 09:07 | Outpatient (REF) | payer OTHER, SELFPAY | END 2023-03-02 09:08 | disposition home or self-care (01) | LOC: HO.MDS 09:07 | PROVIDERS: Visit Provider Internal Medicine Pulmonary Disease | DX: J45.50 Severe persistent asthma, uncomplicated (principal) | CPT/HCPCS: 96372; J0517 ==

== ENCOUNTER → 2023-03-12 10:38 | Outpatient (BNVA) | payer OTHER, SELFPAY | PROVIDERS: PCP Internal Medicine; Visit Provider Physician Assistant | DX: M17.0 Bilateral primary osteoarthritis of knee (principal); M25.562 Pain in left knee | CPT/HCPCS: 20610; J1040 ==

== ENCOUNTER 2023-04-29 07:52 | Outpatient (REF) | payer OTHER, SELFPAY | END 2023-04-29 07:53 | disposition home or self-care (01) | LOC: HO.MDS 07:52 | PROVIDERS: Visit Provider Internal Medicine Pulmonary Disease | DX: J45.50 Severe persistent asthma, uncomplicated (principal) | CPT/HCPCS: 96372; J0517 ==

== ENCOUNTER 2023-05-07 09:41 | Emergency (ER) | payer OTHER, SELFPAY ==
--- NOTE | ~2023-05-07 | XR_ITS ---
EXAMINATION: XR CHEST CLINICAL INFORMATION: Shortness of breath COMPARISON: September 30, 2021 and January 05, 2019 TECHNIQUE: 2 views of the chest were obtained. FINDINGS: There is question of a 1.5 cm density overlying the posterior aspect of the right eighth rib. No confluent parenchymal disease identified. No pneumothorax or pleural effusion. Heart normal size. No evidence of pulmonary edema. XR/XR chest 2V IMPRESSION: Question 1.5 cm density mid right lung for which CT scan would be of help in further evaluation.
[2023-05-07 09:43] VITALS: BP 140/71; PULSE 81; RESP 18; TEMP 36.6; O2SAT 97; BMI 24.4
[2023-05-07 10:17] VITALS: BP 109/46; PULSE 78; RESP 16; TEMP 36.7; O2SAT 95
--- NOTE | 2023-05-07 10:24 | PC.NURSE ---
pt a&ox3, respirations even and unlabored. lung sounds clear bilaterally. pt reports SOB and wheezing for 4 days, pt has hx of asthma. pt took cough medicine this morning.
--- NOTE | 2023-05-07 12:01 | ECG_ITS ---
Test Reason : SOB Blood Pressure : / mmHG Vent. Rate : 066 BPM Atrial Rate : 066 BPM P-R Int : 170 ms QRS Dur : 098 ms QT Int : 392 ms P-R-T Axes : 070 025 043 degrees QTc Int : 410 ms Normal sinus rhythm Normal ECG When compared with ECG of 10-JAN-2022 10:23, No significant change was found Referred By: Aishwarya Valdez Electronically Signed By:LUAN GOLDSTEIN MD
[2023-05-07 12:38] LABS: MANUAL DIFF FLAG NO
[2023-05-07 12:40] LABS: Basophils Percent Auto 0.3 % (0-2); Hematocrit 41.1 % (42.0-52.0); Hemoglobin 14.9 g/dl (14.0-18.0); Imm Gran Abs Auto 0.03 X10*3/uL (0.00-0.03); Imm Gran Pct Auto 0.5 % (0.0-0.4); Lymphocytes Absolute Auto 1.7 X10*3/uL (1.2-4.9); Lymphocytes Percent Auto 25.9 % (20-40); Mean Corpuscular HGB Conc 36.3 g/dl (31.0-36.0); Mean Corpuscular Hemoglobin 31.6 pg (27.0-33.0); Mean Corpuscular Volume 87.3 fL (80.0-98.0); Mean Platelet Volume 9.4 fL (9.4-12.4); Monocytes Absolute Auto 0.5 X10*3/uL (0.1-1.2); Monocytes Percent Auto 7.3 % (2-11); Neutrophils Absolute Auto 4.4 x10*3/uL (2.0-8.3); Platelet Count 175 X10*3/uL (160-400); Red Blood Count 4.71 X10*6/uL (4.60-5.80); Red Cell Distribution Width 11.9 % (11.0-16.0); White Blood Count 6.6 X10*3/uL (4.8-10.8)
[2023-05-07] MEDS: Albuterol Sulfate (0.083%) 2.5 MG/3 ML VIAL.NEB INHALE (12:53)
[2023-05-07 12:55] VITALS: PULSE 80; RESP 16; O2SAT 97
[2023-05-07 12:55] LABS: COVID-19 Test Negative (Negative); IDNOW Serial# BCCEAD1C
--- NOTE | 2023-05-07 13:00 | ED_ITS ---
HPI - SOB/Dyspnea General Chief Complaint: Dyspnea Stated Complaint: sob Time Seen by Provider: 05/07/23 10:05 History of Present Illness HPI Narrative: Patient is a 58-year-old male no significant past medical history presents today with having coughing congestion upper respiratory symptoms. Patient is vaccinated for COVID. Patient is from home. Coughing positive for some yellowish sputum. No fever no chills. Symptoms seems to have gotten worse. Positive history of asthma never been intubated never been admitted Related Data Home Medications Medication Instructions Recorded Confirmed benralizumab 30 mg/mL subcutaneous 30 mg subcut Q8W 10/04/20 10/04/20 syringe (Fasenra) tamsulosin 0.4 mg capsule 0.8 mg PO DAILY 12/30/21 Previous Rx's Medication Instructions Recorded albuterol sulfate 90 mcg/actuation 1 inh inhalation QID 30 days #1 ea 03/21/21 aerosol inhaler (ProAir HFA) beclomethasone dipropionate 80 2 spray intranasal DAILY 30 days 03/21/21 mcg/actuation nasal HFA inhaler #10.6 grams (QNASL) fluticasone 500 mcg-salmeterol 50 1 inh inhalation BID 30 days #1 ea 05/09/21 mcg/dose blistr powdr for inhalation albuterol sulfate 90 mcg/actuation 2 puff inhalation Q4-6H PRN 09/30/21 aerosol inhaler shortness of breath or wheezing #6.7 grams azithromycin 250 mg tablet See Rx Instructions PO .COMPLEX 05/07/23 upper resp infection #6 tabs prednisone 20 mg tablet 40 mg PO DAILY #10 tabs 05/07/23 Allergies Allergy/AdvReac Type Severity Reaction Status Date / Time Penicillins [PCN] Allergy Unknown HIVES Verified 03/12/23 10:45 Review of Systems Review of Systems: Positive cough and congestion upper respiratory symptoms Yes all other systems are reviewed and are negative [facility] Past Medical History Attestation statement: The following information was validated with the patient. Medical History Asthma Surgical History H/O left knee surgery H/O right knee surgery Social History Social History Alcohol intake: current Alcohol intake frequency: holidays/special occasions only Patient Tobacco Use Status: Never used Tobacco Smoked in Last 30 Days: No Use of substances other than those prescribed or required for medical reasons: No Advance Directives: No Current occupational status: employed Current occupation: [employer] Physical Exam Vital Signs: Vital Signs: Last Vital Signs Temp 98.0 F 05/07/23 10:17 Pulse 80 05/07/23 12:55 Resp 16 05/07/23 12:55 BP 109/46 L 05/07/23 10:17 Pulse Ox 95 05/07/23 10:17 O2 Del Method Room Air 05/07/23 10:17 BMI result Body Mass Index 24.4 Appearance: Alert. Oriented X3. No acute distress. Eyes: Pupils equal, round and reactive to light. ENT: Pharynx normal. Neck: Normal inspection. Neck supple. No lymph nodes noted. No crepitus CVS: Normal heart rate and rhythm. Pulses normal. Normal S1 and S2 Respiratory: No respiratory distress. Breath sounds normal. No Wheezing. No rales Abdomen: Soft and nontender. No rigidity. No distention. good BS x4 Skin: Skin warm and dry. Normal skin color. Normal skin turgor. Extremities: No lower extremity edema. Neurovascular intact to all extremities. No Lacerations. No Rash Neuro: Oriented X 3. No motor deficit. No sensory deficit. Moving all extermities. No slurred speech Medications Administered Discontinued Medications Generic Name Dose Route Start Last Admin Trade Name Freq PRN Reason Stop Dose Admin Albuterol Sulfate 2.5 mg 05/07/23 12:12 05/07/23 12:53 Albuterol Sulfate (0.083%) 2.5 Mg/3 Ml Vial.Neb INHALE 05/07/23 12:13 2.5 mg ONCE ONE Administration Medical Decision Making Medical Decision Making MDM Narrative: Patient's chest x-ray showed no evidence of pneumonia. Lungs are clear. Well- appearing. COVID test was negative. White count is normal. Electrolytes are normal. Patient's troponin was negative despite having the constant chest tightness has been ongoing for greater than 6 hours. My interpretation patient's EKG showed a sinus rhythm heart rate is 60 WA QRS QTC within normal limits no acute ST segment elevation. In the setting of low wrist negative EKG negative troponin unlikely secondary to ACS. Will discharge patient home. Currently in stable condition. Question bronchitis. Differential Diagnosis Differential Diagnoses: The differential diagnosis associated with the presentation includes Bronchitis, asthma, COVID, pneumonia, pneumothorax, ACS Lab Data MDM Lab Attestation statement: I reviewed the patient's lab results. 05/07/23 12:33 05/07/23 12:33 Labs: Lab Results 05/07/23 05/07/23 05/07/23 Range/Units 12:33 12:33 12:33 WBC 6.6 (4.8-10.8) X10*3/uL RBC 4.71 (4.60-5.80) X10*6/uL Hgb 14.9 (14.0-18.0) g/dl Hct 41.1 L (42.0-52.0) % MCV 87.3 (80.0-98.0) fL MCH 31.6 (27.0-33.0) pg MCHC 36.3 H (31.0-36.0) g/dl RDW 11.9 (11.0-16.0) % Plt Count 175 (160-400) X10*3/uL MPV 9.4 (9.4-12.4) fL Immature Gran % (Auto) 0.5 H (0.0-0.4) % Neut % (Auto) 66.0 (45-73) % Lymph % (Auto) 25.9 (20-40) % [place] % (Auto) 7.3 (2-11) % Eos % (Auto) 0.0 (0-4) % Baso % (Auto) 0.3 (0-2) % Lymph # (Auto) 1.7 (1.2-4.9) X10*3/uL [place] # (Auto) 0.5 (0.1-1.2) X10*3/uL Eos # (Auto) 0.0 (0.0-0.4) X10*3/uL Baso # (Auto) 0.0 (0.0-0.2) X10*3/uL Abs Immat Gran (auto) 0.03 (0.00-0.03) X10*3/uL Absolute Neuts (auto) 4.4 (2.0-8.3) x10*3/uL Absolute Nucleated RBC 0.000 (0.0-0.012) X10*3/uL Nucleated RBC % (auto) 0.0 (0.0-0.2) /100WBC Sodium 139 (135-145) mmol/L Potassium 4.2 (3.3-5.1) mmol/L Chloride 109 H (96-108) mmol/L Carbon Dioxide 25 (22-29) mmol/L Anion Gap 9 L (12-20) BUN 9 (9-16) mg/dL Creatinine 0.82 (0.5-1.4) mg/dL Estim Creat Clear Calc 104.5 Estimated GFR > 60 Random Glucose 91 (60-115) mg/dL Calcium 9.1 (8.4-10.2) mg/dL Magnesium 2.0 (1.6-2.6) mg/dL Total Bilirubin 1.0 (0.0-1.0) mg/dL AST 17 (5-37) U/L ALT 16 (0-40) U/L Alkaline Phosphatase 71 (39-117) U/L Troponin I High Sens < 2.7 (<3.5-35.0) ng/L Total Protein 6.7 (6.5-8.0) g/dL Albumin 4.0 (3.5-5.0) g/dL COVID-19 (ELIUD) (Negative) COVID-19 Clin Com 05/07/23 Range/Units 12:33 WBC (4.8-10.8) X10*3/uL RBC (4.60-5.80) X10*6/uL Hgb (14.0-18.0) g/dl Hct (42.0-52.0) % MCV (80.0-98.0) fL MCH (27.0-33.0) pg MCHC (31.0-36.0) g/dl RDW (11.0-16.0) % Plt Count (160-400) X10*3/uL MPV (9.4-12.4) fL Immature Gran % (Auto) (0.0-0.4) % Neut % (Auto) (45-73) % Lymph % (Auto) (20-40) % [place] % (Auto) (2-11) % Eos % (Auto) (0-4) % Baso % (Auto) (0-2) % Lymph # (Auto) (1.2-4.9) X10*3/uL [place] # (Auto) (0.1-1.2) X10*3/uL Eos # (Auto) (0.0-0.4) X10*3/uL Baso # (Auto) (0.0-0.2) X10*3/uL Abs Immat Gran (auto) (0.00-0.03) X10*3/uL Absolute Neuts (auto) (2.0-8.3) x10*3/uL Absolute Nucleated RBC (0.0-0.012) X10*3/uL Nucleated RBC % (auto) (0.0-0.2) /100WBC Sodium (135-145) mmol/L Potassium (3.3-5.1) mmol/L Chloride (96-108) mmol/L Carbon Dioxide (22-29) mmol/L Anion Gap (12-20) BUN (9-16) mg/dL Creatinine (0.5-1.4) mg/dL Estim Creat Clear Calc Estimated GFR Random Glucose (60-115) mg/dL Calcium (8.4-10.2) mg/dL Magnesium (1.6-2.6) mg/dL Total Bilirubin (0.0-1.0) mg/dL AST (5-37) U/L ALT (0-40) U/L Alkaline Phosphatase (39-117) U/L Troponin I High Sens (<3.5-35.0) ng/L Total Protein (6.5-8.0) g/dL Albumin (3.5-5.0) g/dL COVID-19 (ELIUD) Negative (Negative) COVID-19 Clin Com See Note Independent Interpretation I performed an independent interpretation of an: EKG and Plain X-Ray Interpretation: My interpretation of patient's EKG showed a sinus rhythm heart rate is 60 WA QRS QT within normal limits with no acute ST segment elevation noted. Chest x-rays negative for pneumonia pneumothorax Discharge Plan Discharge Clinical Impression: Bronchitis Patient Disposition: Home, Self-Care Instructions: Acute Bronchitis (ED) Prescriptions: New azithromycin 250 mg tablet See Rx Instructions .ROUTE .COMPLEX Qty: 6 0RF Rx Instructions: take 500 mg today (day 1), then 250 mg for 4 days (days 2-5) prednisone 20 mg tablet 40 mg PO DAILY Qty: 10 0RF No Action QNASL 80 mcg/actuation HFA aerosol inhaler 2 spray intranasal DAILY 30 Days Qty: 10.6 1RF Rx Instructions: administer into one nostril albuterol sulfate [ProAir HFA] 90 mcg/actuation HFA aerosol inhaler 1 inh inhalation QID 30 Days Qty: 1 6RF fluticasone propion-salmeterol 500-50 mcg/dose blister with device 1 inh inhalation BID 30 Days Qty: 1 6RF albuterol sulfate 90 mcg/actuation HFA aerosol inhaler 2 puff inhalation Q4-6H PRN (Reason: shortness of breath or wheezing) Qty: 6.7 0RF Fasenra 30 mg/mL syringe 30 mg subcut Q8W tamsulosin 0.4 mg capsule 0.8 mg PO DAILY Referrals: Paulina Dietz MD [Primary Care Provider] - 05/11/23
[2023-05-07 13:06] LABS: Alanine Aminotransferase 16 U/L (0-40); Alkaline Phosphatase 71 U/L (39-117); Anion Gap 9 (12-20); Aspartate Amino Transferase 17 U/L (5-37); Blood Urea Nitrogen 9 mg/dL (9-16); Calcium 9.1 mg/dL (8.4-10.2); Carbon Dioxide 25 mmol/L (22-29); Chloride 109 mmol/L (96-108); Creatinine Clr Calc Pharmacy 104.5; Estimated Glomerular Filt Rate > 60; Glucose Random 91 mg/dL (60-115); Potassium 4.2 mmol/L (3.3-5.1); Sodium 139 mmol/L (135-145); Total Protein 6.7 g/dL (6.5-8.0); Troponin-I High Sensitivity < 2.7 ng/L (<3.5-35.0)
[2023-05-07 13:59] VITALS: BP 114/50; PULSE 71; RESP 16; TEMP 36.5; O2SAT 98
== END 2023-05-07 14:01 | disposition home or self-care (01) ==
PROVIDERS: Physician Assistant Medical; Emergency Provider Emergency Medicine Emergency Medical Services; PCP Internal Medicine
DX: J40 Bronchitis, not specified as acute or chronic (principal); R06.02 Shortness of breath; R05.9 Cough, unspecified; R11.2 Nausea with vomiting, unspecified; Z20.822 Contact with and (suspected) exposure to COVID-19; Z20.828 Contact with and (suspected) exposure to other viral communicable diseases; Z79.899 Other long term (current) drug therapy
CPT/HCPCS: 71046; 80053; 83735; 84484; 85025; 87635; 93005; 94640; 99284; 99285

== ENCOUNTER → 2023-05-07 12:01 | Outpatient (BNV) | payer OTHER, SELFPAY | PROVIDERS: Emergency Provider Emergency Medicine Emergency Medical Services; PCP Internal Medicine; Visit Provider Internal Medicine Cardiovascular Disease | DX: R06.02 Shortness of breath (principal) | CPT/HCPCS: 93010 ==

== ENCOUNTER 2023-06-24 08:38 | Outpatient (REF) | payer OTHER, SELFPAY | END 2023-06-24 08:39 | disposition home or self-care (01) | LOC: HO.MDS 08:38 | PROVIDERS: Visit Provider Internal Medicine Pulmonary Disease | DX: J45.50 Severe persistent asthma, uncomplicated (principal) | CPT/HCPCS: 96372; J0517 ==

== ENCOUNTER 2023-07-08 09:58 | Outpatient (AMB) | payer OTHER, SELFPAY ==
[2023-07-08 10:01] VITALS: BP 102/68; PULSE 82; O2SAT 96; BMI 25.7
--- NOTE | 2023-07-08 10:01 | MHC.OFFVIS ---
Intake Vital Signs 07/08/23 10:01 Height 5 ft 11 in Weight 184 lb 1.376 oz BMI 25.7 BP 102/68 Blood Pressure Location Lt brachial Position Sitting Pulse 82 Pulse Source Doppler Pulse Oximetry (%) 96 Oxygen Delivery Method Room Air Intake Visit Reasons: asthma Allergies Penicillins [PCN] Allergy (Unknown, Verified 07/08/23 10:02) HIVES HPI asthma HPI Details 58-year-old gentleman, lifetime nonsmoker, followed for underlying severe persistent allergic asthma. He continues on Fasenra and Advair 250 with good symptomatic control of his asthma. He rarely uses albuterol MDI. He denies any recent exacerbations. [facility] Medical History Asthma Surgical History H/O left knee surgery H/O right knee surgery Social History Alcohol intake: current Alcohol intake frequency: holidays/special occasions only Patient Tobacco Use Status: Never used Tobacco Current occupational status: employed Current [place]: [employer] [place] Review of Systems Const Denies daytime sleepiness, Denies excessive sweating, Denies fatigue, Denies fever(s), Denies lethargy, Denies malaise, Denies night sweats, Denies snoring and Denies weight loss Eyes Denies blurry vision and Denies itchy eyes ENT Denies nasal congestion, Denies post nasal drip, Denies sinus pain, Denies sinus pressure and Denies other ( Thrush) Card Denies chest pain, Denies pedal edema, Denies dyspnea, Denies orthopnea and Denies paroxysmal nocturnal dyspnea Resp Denies cough, Denies hemoptysis, Denies excessive phlegm production, Denies dyspnea, Denies snoring and Denies wheezing GI Denies abdominal pain and Denies heartburn Musc Denies myalgias, Denies arthralgias and Denies joint swelling Skin/Breast Denies rash Neuro Denies memory loss and Denies seizure-like activity Psych Denies abnormal sleep pattern, Denies anxiety and Denies memory loss Endo Denies excessive sweating, Denies fatigue and Denies heat intolerance Maicol/Lymph Denies easy bruising Aller/Immun Denies itchy eyes, Denies seasonal rhinorrhea and Denies wheezing Physical Exam Vital Signs: Last Vital Signs Pulse 82 07/08/23 10:01 BP 102/68 07/08/23 10:01 Pulse Ox 96 07/08/23 10:01 Oxygen Delivery Method Room Air 07/08/23 10:01 BMI result Body Mass Index 25.7 Const General: no acute distress and alert Nutritional Appearance: not obese Orientation/consciousness: Other orientation findings ( oriented) HEENT Head: Yes atraumatic Eyes General: appearance normal, both eyes and all related structures Sclerae: sclerae normal EOM: EOMs intact bilaterally Neck Neck: Yes supple Lymphatic: no lymphadenopathy noted Resp Effort & Inspection: normal respiratory effort and no use of accessory muscles Auscultation: clear to auscultation bilaterally Cardio Rate: regular rate Rhythm: regular rhythm Heart sounds: no gallops, no murmurs and no rubs Skin General skin exam: other ( warm) Extrem General: No clubbing, No cyanosis and No edema Assessment & Plan Assessment & Plan (1) Severe persistent asthma: Code(s): J45.50 - Severe persistent asthma, uncomplicated Plan: Well controlled on Fasenra, albuterol MDI, and Advair. Continue current regimen. Will obtain full PFT. (2) Environmental allergies: Code(s): Z91.09 - Other allergy status, other than to drugs and biological substances Plan: Well controlled on Fasenra, though sometimes has mild seasonal exacerbations. Continue current regimen. Coding Level of Care Code Est Pt Level 4 (88473) Diagnoses Severe persistent asthma J45.50 Environmental allergies Z91.09
== END 2023-07-08 10:15 | disposition home or self-care (01) ==
PROVIDERS: PCP Internal Medicine; Visit Provider Internal Medicine Pulmonary Disease
DX: J45.50 Severe persistent asthma, uncomplicated (principal); Z91.09 Other allergy status, other than to drugs and biological substances
CPT/HCPCS: 99214

== ENCOUNTER → 2023-07-08 09:58 | Outpatient (BNVA) | payer OTHER, SELFPAY | PROVIDERS: PCP Internal Medicine; Visit Provider Internal Medicine Pulmonary Disease ==

== ENCOUNTER → 2023-07-31 09:49 | Outpatient (BNVA) | payer OTHER, SELFPAY | PROVIDERS: PCP Internal Medicine; Visit Provider Internal Medicine | DX: Z13.89 Encounter for screening for other disorder (principal) | CPT/HCPCS: 99202 ==

== ENCOUNTER → 2023-08-04 10:15 | Outpatient (BNVA) | payer OTHER, SELFPAY | PROVIDERS: PCP Internal Medicine; Visit Provider Physician Assistant Medical | DX: Z13.89 Encounter for screening for other disorder (principal) | CPT/HCPCS: 99213 ==

== ENCOUNTER 2023-08-21 07:24 | Outpatient (REF) | payer OTHER, SELFPAY | END 2023-08-21 07:25 | disposition home or self-care (01) | LOC: HO.MDS 07:24 | PROVIDERS: Visit Provider Internal Medicine Pulmonary Disease | DX: J45.50 Severe persistent asthma, uncomplicated (principal) | CPT/HCPCS: 96372; J0517 ==

== ENCOUNTER 2023-09-25 07:58 | Outpatient (REF) | payer OTHER, SELFPAY ==
--- NOTE | 2023-09-25 08:42 | PFT_ITS ---
Indication: Asthma Spirometry [FEV1 to FVC 64%; FEV1 2.8 L which is 96% predicted; FVC 4.52 L which is 92% predicted. No significant response to bronchodilators noted. Maximum voluntary ventilation 83% predicted] Lung Volumes [Total lung capacity 89% predicted; RV 90% predicted] Diffusion Capacity [DLCO 106% predicted] Comparisons [none] Interpretation [There is an obstructive ventilatory defect consistent with mild COPD. No significant response to bronchodilators noted. Normal maximum voluntary ventilation. Lung volumes and diffusing capacity also within normal limits. Clinical correlation warranted.] MTDD
--- NOTE | 2023-09-25 08:44 | PFT_ITS ---
Spirometry [] Lung Volumes [] Diffusion Capacity [] Methacholine Challenge [] Flow Volume Loops [] MVV [] MIP/MEP(Max inspiratory pressure/Max expiratory pressure) [] 6 Minute Walk Test [] ABG [] Interpretation [] MTDD
== END 2023-09-25 07:59 | disposition home or self-care (01) ==
LOC: HO.RESP 07:58
PROVIDERS: PCP Internal Medicine; Visit Provider Internal Medicine Pulmonary Disease
DX: J45.50 Severe persistent asthma, uncomplicated (principal)
CPT/HCPCS: 94010; 94727; 94729

== ENCOUNTER → 2023-09-25 08:42 | Outpatient (BNV) | payer OTHER, SELFPAY | PROVIDERS: PCP Internal Medicine; Visit Provider Hospitalist | DX: J45.909 Unspecified asthma, uncomplicated (principal) | CPT/HCPCS: 94060; 94727; 94729 ==

== ENCOUNTER 2023-10-12 08:37 | Outpatient (REF) | payer OTHER, SELFPAY | END 2023-10-12 08:38 | disposition home or self-care (01) | LOC: HO.MDS 08:37 | PROVIDERS: PCP Internal Medicine; Visit Provider Internal Medicine Pulmonary Disease | DX: J45.50 Severe persistent asthma, uncomplicated (principal) | CPT/HCPCS: 96372; J0517 ==

== ENCOUNTER 2023-12-07 11:49 | Outpatient (REF) | payer OTHER, SELFPAY | END 2023-12-07 11:50 | disposition home or self-care (01) | LOC: HO.MDS 11:49 | PROVIDERS: Visit Provider Internal Medicine Pulmonary Disease | DX: J45.50 Severe persistent asthma, uncomplicated (principal) | CPT/HCPCS: 96372; J0517 ==

== ENCOUNTER 2024-01-24 16:07 | Emergency (ER) | payer OTHER, SELFPAY ==
--- NOTE | ~2024-01-24 | XR_ITS ---
EXAMINATION: XR HAND/WRIST, LEFT CLINICAL INFORMATION: Drill into the question of fracture COMPARISON: None TECHNIQUE: Four views of the left hand and wrist. FINDINGS: The bones and soft tissues are unremarkable aside from some mild degenerative changes at the DIP joints. No fracture. Alignment is anatomic. Joint spaces are maintained. No erosions. Tiny periarticular calcification at the DIP joint of the index finger. XR/XR hand wrist LT IMPRESSION: No evidence of an acute osseous injury. Mild degenerative changes at the DIP joints.
[2024-01-24 16:10] VITALS: BP 120/85; PULSE 78; RESP 16; TEMP 36.4; O2SAT 98; BMI 25.1
--- NOTE | 2024-01-24 16:26 | ED.GENADULT ---
HPI - General Adult General Chief complaint: Wound/Laceration Stated complaint: hand injury Time Seen by Provider: 01/24/24 16:24 Source: patient Mode of arrival: ambulatory Limitations: no limitations History of Present Illness HPI narrative: 58 yold healthy male presents to the ED for left thumb lacerations after accidently being cut by a hand drill. patient states no other trauma and has complete range of motion of of hand. Related Data Home Medications Medication Instructions Recorded Confirmed benralizumab 30 mg/mL subcutaneous 30 mg subcut Q8W 10/04/20 10/04/20 syringe (Fasenra) tamsulosin 0.4 mg capsule 0.8 mg PO DAILY 12/30/21 Previous Rx's Medication Instructions Recorded albuterol sulfate 90 mcg/actuation 1 inh inhalation QID 30 days #1 ea 03/21/21 aerosol inhaler (ProAir HFA) beclomethasone dipropionate 80 2 spray intranasal DAILY 30 days 03/21/21 mcg/actuation nasal HFA inhaler #10.6 grams (QNASL) fluticasone 500 mcg-salmeterol 50 1 inh inhalation BID 30 days #1 ea 05/09/21 mcg/dose blistr powdr for inhalation albuterol sulfate 90 mcg/actuation 2 puff inhalation Q4-6H PRN 09/30/21 aerosol inhaler shortness of breath or wheezing #6.7 grams azithromycin 250 mg tablet See Rx Instructions PO .COMPLEX 05/07/23 upper resp infection #6 tabs prednisone 20 mg tablet 40 mg (2 x 20 mg) PO DAILY #10 tabs 05/07/23 cephalexin 500 mg capsule 500 mg PO Q12H 7 days #13 caps 01/24/24 Allergies Allergy/AdvReac Type Severity Reaction Status Date / Time Penicillins [PCN] Allergy Unknown HIVES Verified 07/08/23 10:02 Review of Systems Review of Systems: left thumb lacerations Yes all other systems are reviewed and are negative PMFSH Past Medical History Medical History Asthma Surgical History H/O left knee surgery H/O right knee surgery Social History Social History Alcohol intake: current Alcohol intake frequency: holidays/special occasions only Patient Tobacco Use Status: Never used Tobacco Advance Directives: No Advance Directives Information Provided: No Current occupational status: employed 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 Physical Exam ED Vital Signs: Vital Signs - 24 hr 01/24/24 16:10 Temperature 97.5 F Pulse Rate 78 Respiratory Rate 16 Blood Pressure 120/85 Pulse Oximetry 98 Oxygen Delivery Method Room Air BMI result Body Mass Index 25.1 Const General: cooperative, healthy appearing, comfortable, no acute distress, well developed, alert, awake and Physically active Orientation/consciousness: oriented to person, oriented to place, oriented to time and patient oriented x3 HENMT Head: Yes normal to inspection, Yes No palpable skull fracture present, Yes normocephalic and Yes atraumatic Eyes General: appearance normal, both eyes and all related structures Neck Neck: Yes normal visual inspection, Yes full ROM, Yes no lymphadenopathy, Yes no meningeal signs, Yes trachea midline, Yes supple, No anterior neck swelling and No tender Chest Chest palpation & inspection: normal inspection of the chest and normal palpation of entire chest wall Resp Effort & Inspection: normal respiratory effort and able to speak in complete sentences Auscultation: clear to auscultation bilaterally Cardio Jugular venous distension: no JVD Heart sounds: S1 normal heart sound present and S2 normal heart sound present GI Inspection: Yes normal to inspection Palpation (GI): Soft to palpation, not firm, nontender, no guarding and not rigid General: No CVA tenderness and Yes no CVA tenderness Back/Spine/Pelvis Back: no CVA tenderness, No CVA tenderness and No back tenderness Skin General skin exam: no rashes or lesions noted, elasticity normal and turgor normal Neuro General: oriented to person, oriented to place, oriented to time, patient oriented x3, gait normal, tone normal, moves all extremities, Normal light touch and pain sensation, no meningeal signs, no focal motor deficits, CN's II-XI intact bilaterally and normal sensation to monofilament Extrem General: Yes normal to inspection and Yes full ROM Hand/finger images: 1. superficial abrasion. . Bleeding controlled. Patient has complete range of motion of thumb and rest of fingers. Negative for signs of nerve or tendon injury. Capillary refills intact. Motor/neuro/vascular exam intact. 2. superficial abrasion. . Bleeding controlled. Patient has complete range of motion of thumb and rest of fingers. Negative for signs of nerve or tendon injury. Capillary refills intact. Motor/neuro/vascular exam intact. 3. puncture wound with controlled bleeding. has complete range of motion of finger and negative for nerve or tendon injury. Motor, neuro, and vascular exam is intact. Psych Appearance: grossly normal, well kempt and not disheveled Medications Administered Discontinued Medications Generic Name Dose Route Start Last Admin Trade Name Freq PRN Reason Stop Dose Admin Cephalexin HCl 500 mg 01/24/24 18:18 01/24/24 18:35 Cephalexin 500 Mg Capsule PO 01/24/24 18:19 500 mg ONCE ONE Administration Diphtheria/Tetanus/Acell Pertussis 0.5 ml 01/24/24 16:26 01/24/24 16:58 Diphth,Pertus(Acell),Tet Adult 0.5 Ml Syringe IM 01/24/24 16:27 0.5 ml .ONCE ONE Administration Medical Decision Making Medical Decision Making MDM Narrative: 68-year-old male presents to ED for left hand laceration caused by hand drill. patient has complete range of motion of thums. negative for signs of tendon nerve injury. Patient is sent for x-ray. 5:57pm: x-ray hand pending. Puncture wound cleaned with sterile saline Betadine iodine. Lidocaine 1% 5 mL placed into wound. Two stitches placed size 4 Prolene used. X-ray pending 6:18pm: xray normal Differential Diagnosis Differential Diagnoses: The differential diagnosis associated with the presentation includes (laceration, fracture) Independent Interpretation I performed an independent interpretation of an: Plain X-Ray Radiology Impression Discussion of test interpretation with radiology: I have reviewed the radiologist's reading. Independent Historian Clinical information obtained from an independent historian. History obtained from or confirmed by: EMS (patient) External Record Review External record reviewed: Other (prior visits) Discharge Plan Discharge Clinical Impression: Laceration of hand Patient Disposition: Home, Self-Care Instructions: Laceration (ED) Additional Instructions: recommend follow-up with primary care provider. Return to the ED in 9 days for suture removal. Return to the ED immediately for any redness, pus discharge, foul odor, bluish discoloration, fever, chills, inability to move thumb, or any other concerning symptoms. Keep wound dry the first 24 hours to 48 hours Prescriptions: New cephalexin 500 mg capsule 500 mg PO Q12H 7 Days Qty: 13 0RF Rx Instructions: received first dose in the ED No Action QNASL 80 mcg/actuation HFA aerosol inhaler 2 spray intranasal DAILY 30 Days Qty: 10.6 1RF Rx Instructions: administer into one nostril albuterol sulfate [ProAir HFA] 90 mcg/actuation HFA aerosol inhaler 1 inh inhalation QID 30 Days Qty: 1 6RF fluticasone propion-salmeterol 500-50 mcg/dose blister with device 1 inh inhalation BID 30 Days Qty: 1 6RF albuterol sulfate 90 mcg/actuation HFA aerosol inhaler 2 puff inhalation Q4-6H PRN (Reason: shortness of breath or wheezing) Qty: 6.7 0RF azithromycin 250 mg tablet See Rx Instructions .ROUTE .COMPLEX Qty: 6 0RF Rx Instructions: take 500 mg today (day 1), then 250 mg for 4 days (days 2-5) prednisone 20 mg tablet 40 mg PO DAILY Qty: 10 0RF Fasenra 30 mg/mL syringe 30 mg subcut Q8W tamsulosin 0.4 mg capsule 0.8 mg PO DAILY Stand Alone Forms: Work/School Release Interventions: ED Discharge Assessment Last Done: 01/24/24 18:53 Discharge Date/Time: 01/24/24 18:54 Print Language: Mauritanian
--- NOTE | 2024-01-24 16:40 | PC.NURSE ---
patients hand soaking in betadine and saline
[2024-01-24] MEDS: Diphth,Pertus(ACell),Tet Adult 0.5 ML SYRINGE IM (16:58)
[2024-01-24] MEDS: cephALEXin 500 MG CAPSULE PO (18:35)
[2024-01-24 18:53] VITALS: BP 120/85; PULSE 78; RESP 16; TEMP 36.4; O2SAT 98
== END 2024-01-24 18:54 | disposition home or self-care (01) ==
PROVIDERS: Emergency Provider Emergency Medicine Emergency Medical Services; PCP Internal Medicine
DX: S61.032A Puncture wound without foreign body of left thumb without damage to nail, initial encounter (principal); W29.8XXA Contact with other powered hand tools and household machinery, initial encounter; Y93.9 Activity, unspecified; Y92.9 Unspecified place or not applicable; Y99.9 Unspecified external cause status
CPT/HCPCS: 12001; 73110; 73130; 90471; 90715; 99282; 99284

== ENCOUNTER → 2024-02-10 09:41 | Outpatient (BNVA) | payer OTHER, SELFPAY | PROVIDERS: PCP Internal Medicine | DX: Z13.89 Encounter for screening for other disorder (principal) | CPT/HCPCS: 99204 ==

== ENCOUNTER → 2024-02-12 14:34 | Outpatient (BNVA) | payer OTHER, SELFPAY | PROVIDERS: PCP Internal Medicine; Visit Provider Physician Assistant | DX: Z13.89 Encounter for screening for other disorder (principal) | CPT/HCPCS: 99213 ==

== ENCOUNTER → 2024-03-02 09:55 | Outpatient (BNVA) | payer OTHER, SELFPAY | PROVIDERS: PCP Internal Medicine; Visit Provider Physician Assistant | DX: Z13.89 Encounter for screening for other disorder (principal) | CPT/HCPCS: 99213 ==

== ENCOUNTER 2024-03-23 10:00 | Outpatient (RCR) | payer OTHER, SELFPAY ==
--- NOTE | 2024-03-02 12:08 | MHC.PT.EP ---
[facility] [place] [facility] [place] [facility] [place] Office [address]lee Victor [address] [phone] F: [phone] F: [phone] F: [phone] F: [phone] Physical Therapy Plan of Care Date of Evaluation: 03/02/24 Date of Surgery: Diagnosis: L cervical UT strain Assessment: 59 y/o male referred to PT with L cervical strain. 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 He was initially light duty but has been released to full duty this morning. S/s consistent with cervical strain with elevated first rib L side resulting in pain and difficulty with driving, exercises (shrugs, pull-ups, bicep curls), and sitting. Examination shows decreased cervical AROM with L-sided cervical/ UT pain, decreased strength of L upper trap, increased tissue tension L scalenes/ rhmboids/ upper traps/pecs, and elevated first rib. Of note, pt with hx cervical surgery (C5-6 disc replacement?) Recommend PT 2x/week for 4 weeks to address impairments, implement HEP, and optimize functional mobility. 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 Manual therapy to restore motion and function. Therapeutic exercise to improve strength and flexibility. Neuromuscular re-education for posture and balance. Therapeutic activities to return to functional activities of daily living. Electronically signed by: Shelbi Rodrigues PT Please sign and return to therapist. Thank you for your referral.
--- NOTE | 2024-04-26 15:21 | MHC.PT.DC ---
[facility] [place] [facility] [place] [facility] [place] Office [address] [phone] F: [phone] F: [phone] F: [phone] F: [phone] Physical Therapy Discharge Report Diagnosis: L cervical UT strain Date of Surgery: Date of Evaluation: 03/02/24 Date of Discharge: 04/26/24 Treatments to Date: 6 Cancellations to Date: 0 No Shows to Date: 0 Discharge Status: Improved Function Independent with HEP Discharge Summary: Jeff has made good progress with less tenderness of upper trap and improved functional mobility. He had to cancel last appointment d/t work conflict. D/c at this time Electronically signed by: Shelbi dunbar PT Please sign and return to therapist. Thank you for your referral.
== END 2024-04-26 15:21 | disposition home or self-care (01) ==
LOC: HO.PT 10:00
PROVIDERS: PCP Internal Medicine; Visit Provider Physician Assistant
DX: S16.1XXD Strain of muscle, fascia and tendon at neck level, subsequent encounter (principal)
CPT/HCPCS: 97110; 97140; 97161; 97530

== ENCOUNTER → 2024-04-20 10:02 | Outpatient (BNVA) | payer OTHER, SELFPAY | PROVIDERS: PCP Internal Medicine; Visit Provider Physician Assistant | DX: Z13.89 Encounter for screening for other disorder (principal) | CPT/HCPCS: 99214 ==

== ENCOUNTER 2024-04-28 10:58 | Outpatient (REF) | payer OTHER, SELFPAY ==
--- NOTE | ~2024-04-28 | MR_ITS ---
EXAMINATION: MR CERVICAL SPINE WITHOUT CONTRAST CLINICAL INFORMATION: Persistent trapezius pain and decreased range of motion in the neck. COMPARISON: MRI cervical spine from 11/18/2021. TECHNIQUE: Multiplanar, multisequential imaging of the cervical spine was performed without contrast. FINDINGS: VERTEBRAL BODIES AND PARASPINAL SOFT TISSUES: The patient is status post previous anterior cervical discectomy and fusion with hardware instrumentation at the C5-C6 level; previous anterolisthesis at this level has normalized in a postoperative setting. Mild rightward curvature of the cervical spine visible. There are no compression fractures. Mild anterior subluxation noted at the C3-C4 level. There is severe left-sided facet arthropathy at C3-C4 and ankylosis of the right C5-C6 facet joint. The paraspinal soft tissues are unremarkable. The vertebral artery flow voids are maintained. The imaged lung apices are grossly clear. CERVICOMEDULLARY JUNCTION AND VISUALIZED POSTERIOR FOSSA: The craniovertebral junction and imaged portions of the brain parenchyma appear normal. No cord signal abnormality or syrinx is seen. SPINAL LEVELS: C2-C3: No disc pathology. Moderate left-sided facet arthrosis. No central canal stenosis or significant foraminal narrowing. C3-C4: Anterolisthesis and unroofing of the disc with endplate spurring and significant left-sided facet arthropathy, as on prior imaging with some progression. Findings result in severe left foraminal encroachment, also in part due to uncovertebral joint spurring. C4-C5: Very mild posterior disc bulge with [id number] facet arthropathy. No central canal stenosis. Very mild foraminal narrowing. C5-C6: Fusion changes anteriorly without central canal stenosis. Hypertrophic facet arthropathy and mild right foraminal narrowing. C6-C7: Shallow disc-osteophyte complex with [id number] loss of disc height, as on prior imaging. No central canal stenosis. Stable severe left foraminal narrowing. C7-T1: No disc pathology. No central canal stenosis or foraminal narrowing. MR/MR cervical spine wo con IMPRESSION: Status post anterior cervical discectomy and fusion with hardware in place at the C5-C6 level. Stable anterolisthesis and unroofed disc at the C3-C4 level. Stable severe left foraminal narrowing due to bony encroachment. Stable moderate spondylosis at the C6-C7 level with severe left foraminal narrowing.
== END 2024-04-28 10:59 | disposition home or self-care (01) ==
LOC: HO.MRI 10:58
PROVIDERS: PCP Internal Medicine; Visit Provider Physician Assistant
DX: M50.90 Cervical disc disorder, unspecified, unspecified cervical region (principal)
CPT/HCPCS: 72141

== ENCOUNTER → 2024-05-05 10:00 | Outpatient (BNVA) | payer OTHER, SELFPAY | PROVIDERS: PCP Internal Medicine; Visit Provider Physician Assistant | DX: Z13.89 Encounter for screening for other disorder (principal) | CPT/HCPCS: 99213 ==

== ENCOUNTER 2024-05-16 10:48 | Outpatient (AMB) | payer OTHER, SELFPAY ==
--- NOTE | 2024-05-16 10:50 | A.OFFVIS_ITS ---
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 He was initially seen in our office in 2021 for cervical spondylosis with radiculopathy. He eventually underwent C5-C6 cervical fusion by Dr. Davis at [facility] in March 2022 with good results. Today he presents with muscle spasms and tenderness in the projection of bilateral upper trapezius and rhomboids, worse on the left side. He was referred to our office by [facility] for potential trigger point injections. 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 He was initially on light duty and released to full duty on 03/02/24. He reports physical therapy completed for 4 weeks helped partially but continues with bilateral neck spasms and stiffness. He denies any radicular symptoms into his upper or lower extremities, denies occipital headaches, dizziness, shortness of breaths or chest pain. Neck presents with limited left lateral rotations and bending as well as bilateral upper trapezius and rhomboids tenderness with multiple taut bands, worse on the left. Denies any significant pain with cervical extension or flexion. Reports worse symptoms with pull ups, bicep curls, prolonged sitting at computer work or putting his shoes or socks on and off. Patient also tried OT therapy to adjust his work ergonomics for computer work without significant improvement. NSAIDs and muscle relaxant (cyclobenzaprine) have been partially beneficial. Patient has not tried acupuncture therapy. Denies any recent cough, cold, infection, fever or other significant changes in medical history since last office visit. Past Procedures: 01/08/22: attempted left C6-C7 epidural steroid injection-no pain relief PRIOR 01/10/22 Dr. Kramer: Jeff presents to report a headache he developed this morning. He felt fine on Thursday, and this morning. He started feeling severe frontal and temporal headache suddenly while at work, associated with dizziness. He feels unsteady when walking. Denies nausea or vomiting. Denies occipital or positional headache. Denies neck pain. PRIOR 12/30/21: Patient is a pleasant 56 years old male who presents to the office for an initial encounter with left neck pain and left shoulder pain. 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 Patient reports his neck pain radiates to his left side to left shoulder to his arm laterally and to left 4th and 5th fingers with significant numbness, tingling, and heaviness in those fingers. Patient was evaluated by a neurosurgeon Dr. Davis at [facility] last Thursday and was told he would benefit from cervical cortisone injection and no surgery at this time. Patient also completed 10 sessions of PT with minimal improvement in his symptoms. He reports cervical traction and ice massage were helpful but the effect lasted about an hour. Patient denies any fever, dizziness, headaches, weight loss, vision disturbances, dropping objects, tremors, weakness, bladder/bowel dysfunction or saddle anesthesia. The pain is worse in mid-morning and throughout the day and less severe at night time. He reports pain onset was gradual and constant with high pain intensity rated at 8-10/10 and least pain at 5/10. Patient states the pain is interfering with his sleep, activities of daily living, quality of life and that he cannot function normally. The patient reports the pain in terms of tissue damage as stabbing, lancinating, tingling, stinging, dull, sore, hurting, aching and heavy. He has been taking gabapentin and naproxen with continued symptoms. Denies any chiropractic manipulation, TENS unit or acupuncture. Denies any prev ious neck or shoulder injections or surgery. Rest, sitting or lying down alleviates the pain. Movements aggravate his pain. Today he rates his pain at 10/10. Patient had cervical MRI on 11/18/21 that showed advanced multifactorial degenerative changes at C3-C4 that result in severe left-sided foraminal stenosis and mild to moderate right-sided foraminal stenosis. At C5-C6, a left paracentral disc protrusion flattens left ventral cord and mildly narrows the central canal and multifactorial degenerative changes result in mild to moderate bilateral foraminal stenosis. At C6-C7, multifactorial degenerative changes result in moderate to severe left foraminal stenosis. This report with details is noted below. [facility] Medical History (Updated 05/16/24 @ 11:59 by BETTINA Leger) Environmental allergies Severe persistent asthma Bilateral primary osteoarthritis of knee Cervical spondylosis with radiculopathy Foraminal stenosis of cervical region Left shoulder pain Post-dural puncture headache Sinusitis Asthma Surgical History (Updated 05/16/24 @ 11:58 by BETTINA Leger) Hx of fusion of cervical spine (~03/2022) H/O left knee surgery H/O right knee surgery Social History Alcohol intake: current Alcohol intake frequency: holidays/special occasions only Patient Tobacco Use Status: Never used Tobacco Current occupational status: employed Current occupation: [employer] Review of Systems Const All systems reviewed & are unremarkable except as noted in HPI and below Physical Exam Vital Signs: Last Vital Signs Pulse 80 05/16/24 10:56 BP 131/60 05/16/24 10:56 Pulse Ox 99 05/16/24 10:56 Oxygen Delivery Method Room Air 05/16/24 10:56 BMI result Body Mass Index 24.4 On exam today: Appears afebrile. Alert and oriented. Mood and affect appropriate. Follows and participates in conversation appropriately. Respiratory effort is unlabored. Able to transition from sit to stand unassisted. Ambulates with bilaterally normal heel strike and toe off. Able to stand and walk on toes and heels. Neck Other: Patient with limited cervical ROM in all planes/especially with left lateral rotation. Reports no pain with cervical extension/flexion. Patient demonstrated 5/5 motor strength of bilateral upper extremities. 2 + radial pulses. Significant tightness throughout left upper trapezius as well as TTP throughout bilateral upper trapezius muscles. No paravertebral tenderness over facet joints bilaterally. Multiple taut bands palpated throughout bilateral upper trapezius muscles. Neck: Yes normal visual inspection, Yes no lymphadenopathy, Yes supple, No anterior neck swelling, No torticollis, Yes no JVD, No prominent supraclavicular fat pad and No prominent dorsocervical fat pad Resp Effort & Inspection: normal respiratory effort, able to speak in complete sentences, no cough, no respiratory distress and symmetric chest movement Back/Spine/Pelvis Cervical Spine: No Lhermitte's sign positive, cervical muscular tenderness (bilateral upper trapezius and rhomboids, worse on the left), pain with cervical ROM (left lateral rotation and bending), Cervical spine scars present, cervical spasm (bilateral), No Cervical spine tenderness and No step off deformity Thoracic/Lumbar Spine: thoracic and lumbar spine normal to inspection, thoraco- lumbar ROM normal, No thoracic spinal tenderness and No lumbar spinal tenderness Office Procedures Therapeutic Injection Therapeutic Injection Details: Pre-procedure diagnosis: Myofascial pain Post-procedure diagnosis: Myofascial pain Site and number of trigger points: Bilateral rhomboids and bilateral upper trapezius muscles After discussing risk, benefits, expectations and details of the procedure, patient signed the informed consent. Patient was placed in a sitting position with the neck exposed. Six to seven tender points, (bilateral upper trapezius and and bilateral rhomboids), were palpated, marked, and then prepped using Chloraprep swab. A 25-gauge, 1 1/2-inch needle was inserted into the area of maximal tenderness with sterile technique. In a fan-like distribution I injected 0.5-1 ml of 0.25% ropivacaine with kenalog 20 mg into each trigger point. The needle was withdrawn and bandaids were applied to injection sites. Patient tolerated the procedure well. Post-injection precautions were reviewed with the patient. The patient was discharged from the clinic . Post-procedure, breath sounds were equal at both sides of the chest. The patient tolerated the procedure well, without complication. The patient denied any numbness, paresthesia, or weakness. [id number]-[id number] Point Injection 3 or more All charges added?: Procedure code (CPT) selection complete Office Meds triamcinolone acetonide 40 mg/mL suspension for injection Performing Provider: BETTINA Leger Performing Location: [facility] Administered by: BETTINA Leger on 05/16/24 11:15 Dose Route Admin Location Dispensed Lot Number Expiration Date NDC Inside Polisher 20 mg Infiltration [facility] 1 mL [id number] 12/24/25 [address]-0 [employer] Comments: Total volume administered 8 ml (0.25% ropivacaine) Results Reviewed Results Reviewed: MR CERVICAL SPINE WITHOUT CONTRAST 04/28/24 CLINICAL INFORMATION: Persistent trapezius pain and decreased range of motion in the neck. COMPARISON: MRI cervical spine from 11/18/2021. TECHNIQUE: Multiplanar, multisequential imaging of the cervical spine was performed without contrast. FINDINGS: VERTEBRAL BODIES AND PARASPINAL SOFT TISSUES: The patient is status post previous anterior cervical discectomy and fusion with hardware instrumentation at the C5-C6 level; previous anterolisthesis at this level has normalized in a postoperative setting. Mild rightward curvature of the cervical spine visible. There are no compression fractures. Mild anterior subluxation noted at the C3-C4 level. There is severe left-sided facet arthropathy at C3-C4 and ankylosis of the right C5-C6 facet joint. The paraspinal soft tissues are unremarkable. The vertebral artery flow voids are maintained. The imaged lung apices are grossly clear. CERVICOMEDULLARY JUNCTION AND VISUALIZED POSTERIOR FOSSA: The craniovertebral junction and imaged portions of the brain parenchyma appear normal. No cord signal abnormality or syrinx is seen. SPINAL LEVELS: C2-C3: No disc pathology. Moderate left-sided facet arthrosis. No central canal stenosis or significant foraminal narrowing. C3-C4: Anterolisthesis and unroofing of the disc with endplate spurring and significant left-sided facet arthropathy, as on prior imaging with some progression. Findings result in severe left foraminal encroachment, also in part due to uncovertebral joint spurring. C4-C5: Very mild posterior disc bulge with [id number] facet arthropathy. No central canal stenosis. Very mild foraminal narrowing. C5-C6: Fusion changes anteriorly without central canal stenosis. Hypertrophic facet arthropathy and mild right foraminal narrowing. C6-C7: Shallow disc-osteophyte complex with [id number] loss of disc height, as on prior imaging. No central canal stenosis. Stable severe left foraminal narrowing. C7-T1: No disc pathology. No central canal stenosis or foraminal narrowing. IMPRESSION: Status post anterior cervical discectomy and fusion with hardware in place at the C5-C6 level. Stable anterolisthesis and unroofed disc at the C3-C4 level. Stable severe left foraminal narrowing due to bony encroachment. Stable moderate spondylosis at the C6-C7 level with severe left foraminal narrowing. Assessment & Plan Assessment & Plan (1) Cervical post-laminectomy syndrome: Code(s): M96.1 - Postlaminectomy syndrome, not elsewhere classified Category: Medical (2) Myofascial neck pain: Code(s): M54.2 - Cervicalgia Category: Medical (3) Cervical spondylosis: Code(s): M47.812 - Spondylosis without myelopathy or radiculopathy, cervical region Category: Medical (4) Hx of fusion of cervical spine: Onset Date: ~03/2022 Code(s): Z98.1 - Arthrodesis status Category: Surgical Plan Patient is status post bilateral upper trapezius and bilateral rhomboids trigger point injections. Patient tolerated procedure well and was discharged in stable condition with discharge instructions. Recent cervical spine MRI imaging and reports were reviewed with patient today. Patient denies any cervical radiculopathy symptoms today. Patient will continue to monitor his neck spasms symptoms and notify our office if he is interested to proceed with trial of acupuncture therapy. All questions and concerns have been answered and patient agreed with the plan. Follow up as needed. Orders: Orders AMB Trigger Point Injection Today M47.812 - Spondylosis without myelopathy or radiculopathy, cervical region, M54.2 - Cervicalgia, M96.1 - Postlaminectomy syndrome, not elsewhere classified Medications: Discontinued prednisone Discontinued Reason: Patient Completed Course 40 mg (2 x 20 mg) PO DAILY 10 tabs 0RF azithromycin Discontinued Reason: Patient Completed Course take 500 mg today (day 1), then 250 mg for 4 days (days 2-5) 6 tabs 0RF upper resp infection cephalexin received first dose in the ED Discontinued Reason: Patient Completed Course 500 mg PO Q12H 7 days 13 caps 0RF albuterol sulfate 90 mcg/actuation (ProAir HFA) Discontinued Reason: Duplicate 1 inh inhalation QID 30 days 1 ea 6RF fluticasone propion-salmeterol 500-50 mcg/dose Discontinued Reason: Duplicate 1 inh inhalation BID 30 days 1 ea 6RF Coding Level of Care Code Est Pt Level 4 (33210) Diagnoses Cervical post-laminectomy syndrome M96.1 Myofascial neck pain M54.2 Cervical spondylosis M47.812 Hx of fusion of cervical spine Z98.1 CPT Codes Therapeutic Injection - Ther Injection 2: [id number] Point Injection 3 or more ([id number])
[2024-05-16 10:56] VITALS: BP 131/60; PULSE 80; O2SAT 99; BMI 24.4
[2024-05-16 11:33] VITALS: BP 165/70; PULSE 70; O2SAT 97
== END 2024-05-16 11:40 | disposition home or self-care (01) ==
PROVIDERS: PCP Internal Medicine; Visit Provider Nurse Practitioner Family
DX: M96.1 Postlaminectomy syndrome, not elsewhere classified (principal); M54.2 Cervicalgia; M47.812 Spondylosis without myelopathy or radiculopathy, cervical region; Z98.1 Arthrodesis status; M79.18 Myalgia, other site
CPT/HCPCS: 20553; 99214

== ENCOUNTER → 2024-05-16 10:48 | Outpatient (BNVA) | payer OTHER, SELFPAY | PROVIDERS: PCP Internal Medicine; Visit Provider Nurse Practitioner Family | DX: M79.18 Myalgia, other site (principal); M96.1 Postlaminectomy syndrome, not elsewhere classified; M54.2 Cervicalgia; M47.812 Spondylosis without myelopathy or radiculopathy, cervical region; Z98.1 Arthrodesis status | CPT/HCPCS: 20553; 99212; J3300 ==

== ENCOUNTER 2024-05-27 11:24 | Outpatient (REF) | payer OTHER, SELFPAY ==
[2024-05-27 14:25] LABS: MANUAL DIFF FLAG NO
[2024-05-27 14:59] LABS: Basophils Percent Auto 0.1 % (0-2); Hematocrit 41.9 % (42.0-52.0); Hemoglobin 15.2 g/dl (14.0-18.0); Imm Gran Abs Auto 0.06 X10*3/uL (0.00-0.03); Imm Gran Pct Auto 0.8 % (0.0-0.4); Lymphocytes Absolute Auto 1.9 X10*3/uL (1.2-4.9); Lymphocytes Percent Auto 24.1 % (20-40); Mean Corpuscular HGB Conc 36.3 g/dl (31.0-36.0); Mean Corpuscular Hemoglobin 32.3 pg (27.0-33.0); Mean Platelet Volume 9.9 fL (9.4-12.4); Monocytes Absolute Auto 0.6 X10*3/uL (0.1-1.2); Monocytes Percent Auto 7.2 % (2-11); Neutrophils Absolute Auto 5.2 x10*3/uL (2.0-8.3); Neutrophils Percent Auto 67.8 % (45-73); Platelet Count 180 X10*3/uL (160-400); Red Blood Count 4.71 X10*6/uL (4.60-5.80); White Blood Count 7.7 X10*3/uL (4.8-10.8)
[2024-05-27 15:38] LABS: Erythrocyte Sedimentation Rate 2 MM/HR (0-15)
[2024-05-27 16:35] LABS: Alanine Aminotransferase 18 U/L (0-40); Albumin Level 4.2 g/dL (3.5-5.0); Alkaline Phosphatase 72 U/L (39-117); Anion Gap 13 (12-20); Aspartate Amino Transferase 17 U/L (5-37); Bilirubin Total 0.6 mg/dL (0.0-1.0); Blood Urea Nitrogen 13 mg/dL (9-16); C Reactive Protein < 0.10 mg/dL (< or = 0.50); Calcium 9.4 mg/dL (8.4-10.2); Carbon Dioxide 26 mmol/L (22-29); Chloride 106 mmol/L (96-108); Estimated Glomerular Filt Rate > 60; Glucose Random 105 mg/dL (60-115); Potassium 3.8 mmol/L (3.3-5.1); Sodium 141 mmol/L (135-145); Total Protein 6.7 g/dL (6.5-8.0)
[2024-05-27 16:49] LABS: Ferritin 118 ng/mL (20-250); Vitamin D 25-OH Total 56.8 ng/mL (>30)
[2024-05-28 05:45] LABS: Folate 17.1 ng/mL (> or = 4.0); Vitamin B12 391 pg/mL (200-900)
[2024-05-30 08:21] LABS: HBS Num1 4.27 mIU/mL (0-7.99); HBc Num1 0.08 S/CO (0.00-0.79); HBsAGNum1 0.45 S/CO (0.00-0.99); Hepatitis A Antibody IgM 0.16 Index (0-0.79); Hepatitis B Core Antibody Nonreactive (Nonreactive); Hepatitis B Surface Antigen Negative (Negative); ~HepC Num1 0.11 S/CO (0.00-0.79); ~Hepatitis A Antibody IgM Nonreactive (Nonreactive); ~Hepatitis B Surface Antibody NONREACTIVE (Nonreactive); ~Hepatitis C Antibody Nonreactive (Nonreactive)
[2024-05-30 17:33] LABS: Transglutaminase Ab IgG <1.0 U/mL; Transglutaminase IgA <1.0 U/mL
[2024-06-01 22:13] LABS: Vitamin A 50 mcg/dL (38-98)
== END 2024-05-27 11:25 | disposition home or self-care (01) ==
LOC: HO.LAB 11:24
PROVIDERS: PCP Internal Medicine; Visit Provider Internal Medicine Gastroenterology
DX: R19.4 Change in bowel habit (principal); K75.81 Nonalcoholic steatohepatitis (NASH); R10.33 Periumbilical pain; G89.29 Other chronic pain
CPT/HCPCS: 36415; 80053; 82306; 82607; 82728; 82746; 84590; 85025; 85652; 86140; 86364; 86704; 86706; 86709; 86803; 87340

== ENCOUNTER 2024-05-27 11:24 | Outpatient (AMB) | payer OTHER, SELFPAY ==
--- NOTE | 2024-05-27 11:26 | A.OFFVIS_ITS ---
Vital Signs 05/27/24 11:27 Height 5 ft 11 in Weight 176 lb 5.917 oz BMI 24.6 BP 115/61 Blood Pressure Location Lt brachial Position Sitting Pulse 70 Intake Visit Reasons: Constipation Intake Note: Cesar presents in the office as a new patient for constipation. CC: He states that he is not having any pains in the stomach, No blood when he has a BM. Here today for constipation. 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 Allergies Penicillins [PCN] Allergy (Unknown, Verified 05/27/24 11:27) HIVES HPI HPI Constipation: Details: HPI 59 yr old m here for assessment He has noted worsening constipation for last 2 months which is unusual for him he is going after several days, normal he was going every day he denies straining at stool no nausea or vomiting he has celiac disease, he tries to be gluten free denies night sweats, no dysphagia, no GERD last colonoscopy ?few yerars ago no new meds ROS: Constitutional : No Weight loss, No Fever, No Chills ENT/Mouth : No sore throat, No Rhinorrhea Eyes: No Swelling, No Redness Cardiovascular : No Chest Pain, No SOB, No Edema Respiratory : No Cough, No Sputum, No Wheezing Gastrointestinal : see HPI Genitourinary : NO Dysuria, No Urinary Frequency, No Hematuria, No Urgency Musculoskeletal : + joint pain--neck, No Myalgias, No Joint Swelling Skin : No Skin Lesions, No rash Neuro : No Weakness, No Numbness, No Dizziness, No Headache Psych : No Anxiety/Panic, No Depression Heme/Lymph: No Bruising, No Lymphadenopathy Endocrine : No Polyuria, No Polydipsia All other systems reviewed and are negative. Medical History Environmental allergies Severe persistent asthma Bilateral primary osteoarthritis of knee Cervical spondylosis with radiculopathy Foraminal stenosis of cervical region Left shoulder pain Post-dural puncture headache Sinusitis Asthma Surgical History Hx of fusion of cervical spine (~03/2022) H/O left knee surgery H/O right knee surgery Family History no fh of colon cancer Social History Alcohol intake: current Alcohol intake frequency: holidays/special occasions only Patient Tobacco Use Status: Never used Tobacco Current occupational status: employed Current occupation: [employer] EXAM: GENERAL: The patient is well developed and nontoxic. VITAL SIGNS:see workflow HEENT: Nonicteric sclerae, PERRLA, EOMI. Oropharynx clear. Moist mucous membranes. Conjunctivae appear well perfused. No thyroid mass. CHEST: Chest wall is nontender. HEART: Regular rate and rhythm without murmurs. LUNGS: Clear to auscultation bilaterally. ABDOMEN: Soft, positive bowel sounds, nontender, no organomegaly.no flank tenderness SKIN: No rash, no excessive bruising, petechiae, or purpura. NEUROLOGIC: Cranial nerves II-XII intact without motor/sensory deficit. Psych: normal affect A/P: 1/ Abn bowel habit, hx of celiac disease--need to r/o neoplasia or obstructing mass PLAN: 1/ urgent egd and colonoscopy for further assessment 2/ labs incl celiac , TSH, cbc PFSH Medical History Environmental allergies Severe persistent asthma Bilateral primary osteoarthritis of knee Cervical spondylosis with radiculopathy Foraminal stenosis of cervical region Left shoulder pain Post-dural puncture headache Sinusitis Asthma Surgical History Hx of colonoscopy History of esophagogastroduodenoscopy (EGD) Hx of fusion of cervical spine (~03/2022) H/O left knee surgery H/O right knee surgery Social History Alcohol intake: current Alcohol intake frequency: holidays/special occasions only Patient Tobacco Use Status: Never used Tobacco Current occupational status: employed Current occupation: [employer] Physical Exam Vital Signs: Last Vital Signs Pulse 70 05/27/24 11:27 BP 115/61 05/27/24 11:27 BMI result Body Mass Index 24.6 Assessment & Plan Assessment & Plan (1) Altered bowel habits: Code(s): R19.4 - Change in bowel habit Category: Medical Plan: see above Orders: Orders Vitamin B12 and Folate Today R19.4 - Change in bowel habit Ferritin Today R19.4 - Change in bowel habit Complete Blood Count Auto Diff Today R19.4 - Change in bowel habit Comprehensive Met. Panel Today K75.81 - Nonalcoholic steatohepatitis (BELLO), R19.4 - Change in bowel habit C Reactive Protein Today R19.4 - Change in bowel habit Erythrocyte Sedimentation Rate Today R19.4 - Change in bowel habit Transglutaminase Ab IgG Today G89.29 - Other chronic pain, R10.33 - Periumbilical pain, R19.4 - Change in bowel habit Transglutaminase IgA Today R19.4 - Change in bowel habit Vitamin D 25-OH Total Today R19.4 - Change in bowel habit Vitamin A Today R19.4 - Change in bowel habit Hepatitis A,B,C Profile Today R19.4 - Change in bowel habit Medications: New sodium,potassium,mag sulfates 17.5-3.13-1.6 gram (Suprep Bowel Prep Kit) DILUTE; drink 1/2 at 6-8 pm and half at 11 PM- 1AM 354 mL 0RF Coding Level of Care Code New Pt Level 4 (01653) Diagnoses Altered bowel habits R19.4
[2024-05-27 11:27] VITALS: BP 115/61; PULSE 70; BMI 24.6
== END 2024-05-27 12:22 | disposition home or self-care (01) ==
PROVIDERS: PCP Internal Medicine; Visit Provider Internal Medicine Gastroenterology
DX: R19.4 Change in bowel habit (principal)
CPT/HCPCS: 99204

== ENCOUNTER 2024-06-09 06:36 | Day surgery (SDC) | payer OTHER, SELFPAY ==
[2024-06-07 10:56] VITALS: BMI 24.5
--- NOTE | 2024-06-08 10:17 | P.CONAN_ITS ---
HPI - Anesthesia Eval Consult details Narrative: 59yo M for Upper Endoscopy and Colonoscopy PMF Active Problems Active Problems: All Active Problems Bladder outlet obstruction (Acute) Altered bowel habits (Acute) Cervical spondylosis (Acute) Myofascial neck pain (Acute) Cervical post-laminectomy syndrome (Acute) Severe persistent asthma (Acute) Hx of fusion of cervical spine (Acute ~03/2022) Foraminal stenosis of cervical region (Acute) Cervical spondylosis with radiculopathy (Acute) Bilateral primary osteoarthritis of knee (Acute) Environmental allergies (Acute) Past Medical History Medical History BPH (benign prostatic hyperplasia) Celiac disease Post-dural puncture headache Left shoulder pain Foraminal stenosis of cervical region Cervical spondylosis with radiculopathy Bilateral primary osteoarthritis of knee Asthma Sinusitis Environmental allergies Surgical History Surgical History Hx of colonoscopy History of esophagogastroduodenoscopy (EGD) Hx of fusion of cervical spine (~03/2022) H/O left knee surgery H/O right knee surgery Social History Social History Are you a primary personal care home administrator to a significant other at home: No Do you presently have visiting nurse or other home services: No Alcohol intake: current Alcohol intake frequency: does not drink Patient Tobacco Use Status: Never used Tobacco Current occupational status: employed Current occupation: [employer] Meds Allergies Allergy/AdvReac Type Severity Reaction Status Date / Time gluten Allergy Intermediate Gastrointestinal Verified 06/09/24 06:46 Upset-celiac disease Penicillins [PCN] Allergy Intermediate HIVES Verified 06/09/24 06:46 Home Medications ?Medication ?Instructions ?Recorded ?Confirmed ?Last Taken ?Type benralizumab 30 mg/mL subcutaneous 30 mg subcut Q8W 10/04/20 06/09/24 Unknown History syringe (Fasenra) Exam Height,Weight and Vital Signs: Height 5 ft 11 in Weight 79.832 kg Pertinent Lab Results Pertinent Lab Results: Laboratory Tests 05/27/24 14:23 WBC 7.7 Hgb 15.2 Hct 41.9 L Plt Count 180 Sodium 141 Potassium 3.8 Chloride 106 Carbon Dioxide 26 BUN 13 Creatinine 0.88 Assessment and Plan Assessment Anesthesia Assessment: Chart Reviewed
--- NOTE | 2024-06-09 06:35 | MHC.SHP ---
Pre-Procedural Eval Section A - 24 Hr Update-Section A only Date of Service: 06/09/24 The patient is an INPATIENT: No The patient has been examined within 24 hours of the surgical procedure. The History & Physical has been completed within 30 days and I have reviewed it.: Yes Section B - Complete if H&P > 30 days Chief Complaint: Change in bowel habit Allergies: Allergies Allergy/AdvReac Type Severity Reaction Status Date / Time gluten Allergy Intermediate Gastrointestinal Verified 06/07/24 10:56 Upset-celiac disease Penicillins [PCN] Allergy Intermediate HIVES Verified 06/07/24 10:56 Plan Diagnosis/Plan: Unchanged I have reviewed the history and physical and performed a pertinent physical examination on my patient. No changes have occurred unless specified. Time Spent With Patient Time: Total time managing care of this patient today ____ minutes.
[2024-06-09 06:50] VITALS: BP 120/62; PULSE 73; RESP 16; TEMP 36.6; O2SAT 95; BMI 23.6
[2024-06-09] MEDS: Lactated Ringers 1,000 ML 100 ML IVCONT (07:15)
--- NOTE | 2024-06-09 07:32 | HO.ANESPROP2 ---
[facility] Active Problems Active Problems: All Active Problems Bladder outlet obstruction (Acute) Altered bowel habits (Acute) Cervical spondylosis (Acute) Myofascial neck pain (Acute) Cervical post-laminectomy syndrome (Acute) Severe persistent asthma (Acute) Hx of fusion of cervical spine (Acute ~03/2022) Foraminal stenosis of cervical region (Acute) Cervical spondylosis with radiculopathy (Acute) Bilateral primary osteoarthritis of knee (Acute) Environmental allergies (Acute) Past Medical History Medical History BPH (benign prostatic hyperplasia) Celiac disease Post-dural puncture headache Left shoulder pain Foraminal stenosis of cervical region Cervical spondylosis with radiculopathy Bilateral primary osteoarthritis of knee Asthma Sinusitis Environmental allergies Surgical History Surgical History Hx of colonoscopy History of esophagogastroduodenoscopy (EGD) Hx of fusion of cervical spine (~03/2022) H/O left knee surgery H/O right knee surgery History of Problems with Anesthesia: No Social History Social History Are you a primary child care attendant school to a significant other at home: No Do you presently have visiting nurse or other home services: No Alcohol intake: current Alcohol intake frequency: does not drink Patient Tobacco Use Status: Never used Tobacco Use of substances other than those prescribed or required for medical reasons: No Have you been hit, kicked, punched, or otherwise hurt by someone within the past year? If so, by whom?: No Are you DNR?: No Advance Directives Information Provided: Yes Advance Directives on File: No Recently lost weight without trying: No Eating poorly because of decreased appetite: No Nutrition Risks: No Nutritional Risk Poor oral hygiene: No (some extracted teeth) Current occupational status: employed Current occupation: [email or web address] Meds Allergies Allergy/AdvReac Type Severity Reaction Status Date / Time gluten Allergy Intermediate Gastrointestinal Verified 06/09/24 06:46 Upset-celiac disease Penicillins [PCN] Allergy Intermediate HIVES Verified 06/09/24 06:46 Active Medications: Current Medications Albuterol Sulfate (Albuterol Sulfate (0.083%) 2.5 Mg/3 Ml Vial.Neb) 2.5 mg INHALE ONCE PRN PRN Reason: Shortness of Breath/Wheezing Lactated Ringer's (Lr) 1,000 mls @ 100 mls/hr IVCONT .Q10H ADIEL Last Admin: 06/09/24 07:15 Dose: 100 mls/hr Home Medications ?Medication ?Instructions ?Recorded ?Confirmed ?Last Taken ?Type benralizumab 30 mg/mL subcutaneous 30 mg subcut Q8W 10/04/20 06/09/24 Unknown History syringe (Kimberleeenra) Exam Height,Weight and Vital Signs: Height 5 ft 11 in Weight 76.657 kg Last Vital Signs Temp 97.8 F 06/09/24 06:50 Pulse 73 06/09/24 06:50 Resp 16 06/09/24 06:50 BP 120/62 06/09/24 06:50 Pulse Ox 95 06/09/24 06:50 O2 Del Method Room Air 06/09/24 06:50 Airway Mallampati Class: III TM Dist: >3cm Neck ROM: Full Loose/Missing/Broken Teeth: No Heart: RRR Lungs: CTA Assessment and Plan Assessment Anesthesia Assessment: Anesthesia Plan Discussed Final Anesthetic Review History of Problems with Anesthesia: No NPO: Yes ASA Class: II Final Preanesthetic Review: Meds/Allgs Chart Reviewed, Consent Obtained/Reviewed and Anes Risks/Benef Reviewed Patient Risk: Low Procedure Risk: Intermediate Anesthetic Plan Anesthetic Plan: MAC: Disposition: Standard PACU
--- NOTE | 2024-06-09 08:14 | HO.OPN-COLON ---
Colonoscopy Operative Note Operative Note Date of Service: 06/09/24 Narrative: Operative Information Procedure Description: EGD, Colonoscopy Indication: change in bowel habits, possible celiac disease Anesthesia: MAC FLEXIBLE TRANSORAL UPPER GASTROINTESTINAL ENDOSCOPY AND COLONOSCOPY PROCEDURE NOTE UPPER ENDOSCOPY Consent: Indications for the procedure and potential complications of bleeding, perforation, reaction to medications and missed diagnosis were discussed with the patient and informed consent was obtained. Instrument: Olympus GIF H 190 J mid size upper endoscope Monitoring: Vital signs and clinical assessment, continuous EKG monitoring, Pulse oximetry, Carbon Dioxide monitoring and blood pressure monitoring were done throughout the procedure. Procedure: The patient was placed in the left lateral decubitis position and pre-procedure medications were administered and a bite block was placed. The endoscope was inserted into the mouth and advanced under direct vision to the third part of duodenum. A careful inspection was made as the upper endoscope was withdrawn including a retroflexed examination of the proximal stomach; Findings and interventions are described below. Findings: Larynx:normal Esophagus: GE junction at 43 cm, diaphragm hiatus at 43 cm, possible one tongue of short segment barretts, bx taken Stomach: Patchy erythema. Biopsies were obtained. Grade 2 flap valve on retroflexed examination of the cardia. Duodenum: Mild duodenitis bx taken Intervention: Biopsies as noted above, COLONOSCOPY Instrument: Olympus variable stiffness pediatric scope 190L Colonoscopy Monitoring: Vital signs and clinical assessment, continuous EKG monitoring, Pulse oximetry, Carbon Dioxide monitoring and blood pressure monitoring were done throughout the procedure. Colon withdrawal time was 16 minutes. Procedure: The patient was placed in the left lateral decubitis position and pre-procedure medications were administered. After a digital rectal examination of the ano-rectum, the video colonoscope was inserted into the rectum and advanced through the colon to the cecum/TI. The colonoscope was slowly withdrawn in a retrograde panoramic fashion and the colon mucosa was carefully examined including a retroflexed view of the rectum. Findings and interventions are described below. Procedure Difficulty:moderate Findings: Terminal Ileum-normal Cecum:normal Ascending Colon: normal Transverse Colon - 6-8 mm flat polyp raised with eleview and removed with cold snare Descending Colon:normal Sigmoid Colon: mild to moderate diverticulosis, 4-6 mm sessile polyp removed with cold forceps Rectum: Retroflexion with medium sized internal hemorrhoids, grade I Anorectum - normal Colon preparation: [place] Bowel Preparation Scale Right colon; 2 Transverse colon: 2 Left colon; 2 (0 = Unprepared colon segment with mucosa not seen due to solid stool that cannot be cleared. 1 = Portion of mucosa of the colon segment seen, but other areas of the colon segment not well seen due to staining, residual stool and/or opaque liquid. 2 = Minor amount of residual staining, small fragments of stool and/or opaque liquid, but mucosa of colon segment seen well. 3 = Entire mucosa of colon segment seen well with no residual staining, small fragments of stool or opaque liquid) Impression and Post Procedure Diagnosis: Endoscopy Findings: gastritis duodenitis possible barretts Colonoscopy Findings: diverticulosis colon polyps internal hemorrhoids Plan: Await Pathology results Repeat Colonoscopy in 5 years due to polyps or earlier if clinically indicated High fiber diet leaflet avoid straining at stool, epsom salts and sitz bath, anusol supps or cream if h pylori pos then treat Above findings were reviewed with the patient and relevant handouts were provided if indicated.
[2024-06-09 08:19] VITALS: BP 90/44; PULSE 74; RESP 16; TEMP 36.3; O2SAT 97
[2024-06-09 08:34] VITALS: BP 95/49; PULSE 64; RESP 16; TEMP 36.3; O2SAT 96
[2024-06-09 08:49] VITALS: BP 102/68; PULSE 76; RESP 18; TEMP 36.6; O2SAT 96
== END 2024-06-09 10:03 | disposition home or self-care (01) ==
PROVIDERS: PCP Internal Medicine; Visit Provider Internal Medicine Gastroenterology
PROC: (CPT 43239; principal; 2024-06-09 07:30)
DX: K29.70 Gastritis, unspecified, without bleeding (principal); K29.80 Duodenitis without bleeding; K90.0 Celiac disease; D12.3 Benign neoplasm of transverse colon; R19.4 Change in bowel habit; K57.30 Diverticulosis of large intestine without perforation or abscess without bleeding; K64.0 First degree hemorrhoids; J45.909 Unspecified asthma, uncomplicated; Z79.899 Other long term (current) drug therapy
CPT/HCPCS: 43239; 45385; 45381; 45380; 88305; 88313; 88342; J1596; J2704

== ENCOUNTER → 2024-06-09 06:36 | Outpatient (BNV) | payer OTHER, SELFPAY | PROVIDERS: PCP Internal Medicine; Visit Provider Internal Medicine Gastroenterology | DX: R19.4 Change in bowel habit (principal); D12.3 Benign neoplasm of transverse colon; K63.5 Polyp of colon; K57.30 Diverticulosis of large intestine without perforation or abscess without bleeding; K64.0 First degree hemorrhoids; K90.0 Celiac disease; K29.80 Duodenitis without bleeding; K29.70 Gastritis, unspecified, without bleeding | CPT/HCPCS: 43239; 45380; 45381; 45385 ==

== ENCOUNTER 2024-06-20 08:26 | Outpatient (REF) | payer OTHER, SELFPAY | END 2024-06-20 08:27 | disposition home or self-care (01) | LOC: HO.LNP 08:26 | PROVIDERS: PCP Internal Medicine; Visit Provider Internal Medicine Gastroenterology | DX: Z13.89 Encounter for screening for other disorder (principal) | CPT/HCPCS: 83013 ==

== ENCOUNTER 2024-06-22 10:24 | Outpatient (AMB) | payer OTHER, SELFPAY ==
--- NOTE | 2024-06-22 10:31 | A.OFFVIS_ITS ---
Intake Visit Reasons: H Pylori Intake Note: Jeff presents in office today for a scheduled repeat H. Pylori breath test. Jeff was recalled to undergo another breath test due to lab handling error with the original sample. New sample was collected with protocols in mind prior to collection. Baggage Handler Required: No Accompanied by: Self / Same As Patient Allergies gluten Allergy (Intermediate, Verified 06/09/24 06:46) Gastrointestinal Upset-celiac disease Penicillins [PCN] Allergy (Intermediate, Verified 06/09/24 06:46) HIVES [facility] Medical History BPH (benign prostatic hyperplasia) Celiac disease Post-dural puncture headache Left shoulder pain Foraminal stenosis of cervical region Cervical spondylosis with radiculopathy Bilateral primary osteoarthritis of knee Asthma Sinusitis Environmental allergies Surgical History Hx of colonoscopy History of esophagogastroduodenoscopy (EGD) Hx of fusion of cervical spine (~03/2022) H/O left knee surgery H/O right knee surgery Social History Are you a primary neonatal intensive care unit nurse to a significant other at home: No Do you presently have visiting nurse or other home services: No Alcohol intake: current Alcohol intake frequency: does not drink Patient Tobacco Use Status: Never used Tobacco Current occupational status: employed Current occupation: [employer] [place] [employer] Assessment & Plan Assessment & Plan (1) Duodenitis: Code(s): K29.80 - Duodenitis without bleeding Category: Medical Plan: see above Coding Level of Care Code Procedure Only Diagnoses Duodenitis K29.80
== END 2024-06-22 11:09 | disposition home or self-care (01) ==
PROVIDERS: PCP Internal Medicine; Visit Provider Internal Medicine Gastroenterology
DX: K29.80 Duodenitis without bleeding (principal)
CPT/HCPCS: 99499

== ENCOUNTER 2024-06-22 10:24 | Outpatient (REF) | payer OTHER, SELFPAY ==
[2024-06-23 11:44] LABS: H Pylori Breath Test Negative (Negative)
== END 2024-06-22 10:25 | disposition home or self-care (01) ==
LOC: HO.LNP 10:24
PROVIDERS: PCP Internal Medicine; Visit Provider Internal Medicine Gastroenterology
DX: R19.4 Change in bowel habit (principal)
CPT/HCPCS: 83013

== ENCOUNTER 2024-07-11 12:08 | Outpatient (AMB) | payer OTHER, SELFPAY ==
--- NOTE | 2024-07-11 12:23 | A.OFFVIS_ITS ---
Vital Signs 07/11/24 12:29 BP 117/53 L Blood Pressure Location Lt brachial Position Sitting Pulse 75 Pulse Source Pulse Oximeter Pulse Oximetry (%) 95 Oxygen Delivery Method Room Air Intake Visit Reasons: s/p Double ;Sherman Intake Note: Cesar is a 59 year old male who presents to the office today for a s/p Double. Pt states he is overall feeling well. Allergies gluten Allergy (Intermediate, Verified 07/11/24 12:23) Gastrointestinal Upset-celiac disease Penicillins [PCN] Allergy (Intermediate, Verified 07/11/24 12:23) HIVES HPI HPI s/p Double ;[place]man: Details: 59 yr old m here for f/u EGD with non specific duodenitis, colonoscopy with TA removed celiac serology was neg, H plyori neg he is not strict abt gluten avoidance we discussed high fiber diet, probiotics EXAM: GENERAL: The patient is well developed and nontoxic. VITAL SIGNS:see workflow HEENT: Nonicteric sclerae, PERRLA, EOMI. Oropharynx clear. Moist mucous membranes. Conjunctivae appear well perfused. No thyroid mass. CHEST: Chest wall is nontender. HEART: Regular rate and rhythm without murmurs. LUNGS: Clear to auscultation bilaterally. ABDOMEN: Soft, positive bowel sounds, nontender, no organomegaly.no flank tenderness SKIN: No rash, no excessive bruising, petechiae, or purpura. NEUROLOGIC: Cranial nerves II-XII intact without motor/sensory deficit. Psych: normal affect A/P: 1/ non specific duodenitis, neg celiac, he was told he had this in the past, 2/ TA PLAN: 1/ check celiac gene HLA DQ8 if neg then he does not have celiac, if pos then periodic check on TTG 2/ repeat colo in 5 yrs 3/ high fiber diet leaflet and fluids 4/ rast testing [facility] Medical History BPH (benign prostatic hyperplasia) Celiac disease Post-dural puncture headache Left shoulder pain Foraminal stenosis of cervical region Cervical spondylosis with radiculopathy Bilateral primary osteoarthritis of knee Asthma Sinusitis Environmental allergies Surgical History Hx of colonoscopy History of esophagogastroduodenoscopy (EGD) Hx of fusion of cervical spine (~03/2022) H/O left knee surgery H/O right knee surgery Social History Are you a primary intensive care unit registered nurse to a significant other at home: No Do you presently have visiting nurse or other home services: No Alcohol intake: current Alcohol intake frequency: does not drink Patient Tobacco Use Status: Never used Tobacco Current occupational status: employed 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
[2024-07-11 12:29] VITALS: BP 117/53; PULSE 75; O2SAT 95
== END 2024-07-11 13:28 | disposition home or self-care (01) ==
PROVIDERS: PCP Internal Medicine; Visit Provider Internal Medicine Gastroenterology
DX: K29.80 Duodenitis without bleeding (principal)
CPT/HCPCS: 99213

== ENCOUNTER → 2024-07-11 12:08 | Outpatient (BNVA) | payer OTHER, SELFPAY | PROVIDERS: PCP Internal Medicine; Visit Provider Internal Medicine Gastroenterology ==

== ENCOUNTER 2024-08-05 13:28 | Outpatient (AMB) | payer OTHER, SELFPAY ==
--- NOTE | 2024-08-05 13:31 | A.OFFVIS_ITS ---
Vital Signs 08/05/24 13:33 Height 5 ft 11 in Weight 186 lb 4.65 oz BMI 26.0 BP 100/62 Blood Pressure Location Rt brachial Position Sitting Pulse 73 Pulse Source Doppler Pulse Oximetry (%) 95 Oxygen Delivery Method Room Air Intake Visit Reasons: Asthma Allergies gluten Allergy (Intermediate, Verified 07/11/24 12:23) Gastrointestinal Upset-celiac disease Penicillins [PCN] Allergy (Intermediate, Verified 07/11/24 12:23) HIVES HPI HPI Asthma: Details: 59-year-old gentleman, lifetime nonsmoker, followed for underlying severe persistent allergic asthma. He continues on Fasenra and Advair 500 with good symptomatic control of his asthma. He rarely uses albuterol MDI. He denies any recent exacerbations. ON LICENSE OF [facility] Medical History BPH (benign prostatic hyperplasia) Celiac disease Post-dural puncture headache Left shoulder pain Foraminal stenosis of cervical region Cervical spondylosis with radiculopathy Bilateral primary osteoarthritis of knee Asthma Sinusitis Environmental allergies Surgical History Hx of colonoscopy History of esophagogastroduodenoscopy (EGD) Hx of fusion of cervical spine (~03/2022) H/O left knee surgery H/O right knee surgery Social History Are you a primary career development counselor to a significant other at home: No Do you presently have visiting nurse or other home services: No Alcohol intake: current Alcohol intake frequency: does not drink Patient Tobacco Use Status: Never used Tobacco Current occupational status: employed Current [place] [employer] [place] [employer] Review of Systems Const Denies daytime sleepiness, Denies excessive sweating, Denies fatigue, Denies fever(s), Denies lethargy, Denies malaise, Denies night sweats, Denies snoring and Denies weight loss Eyes Denies blurry vision and Denies itchy eyes ENT Denies nasal congestion, Denies post nasal drip, Denies sinus pain, Denies sinus pressure and Denies other ( Thrush) Card Denies chest pain, Denies pedal edema, Denies dyspnea, Denies orthopnea and Denies paroxysmal nocturnal dyspnea Resp Denies cough, Denies hemoptysis, Denies excessive phlegm production, Denies dyspnea, Denies snoring and Denies wheezing GI Denies abdominal pain and Denies heartburn Musc Denies myalgias, Denies arthralgias and Denies joint swelling Skin/Breast Denies rash Neuro Denies memory loss and Denies seizure-like activity Psych Denies abnormal sleep pattern, Denies anxiety and Denies memory loss Endo Denies excessive sweating, Denies fatigue and Denies heat intolerance Maicol/Lymph Denies easy bruising Aller/Immun Denies itchy eyes, Denies seasonal rhinorrhea and Denies wheezing Physical Exam Vital Signs: Last Vital Signs Pulse 73 08/05/24 13:33 BP 100/62 08/05/24 13:33 Pulse Ox 95 08/05/24 13:33 Oxygen Delivery Method Room Air 08/05/24 13:33 BMI result Body Mass Index 26.0 Const General: no acute distress and alert Nutritional Appearance: not obese Orientation/consciousness: Other orientation findings ( oriented) HEENT Head: Yes atraumatic Eyes General: appearance normal, both eyes and all related structures Sclerae: sclerae normal EOM: EOMs intact bilaterally Neck Neck: Yes supple Lymphatic: no lymphadenopathy noted Resp Effort & Inspection: normal respiratory effort and no use of accessory muscles Auscultation: clear to auscultation bilaterally Cardio Rate: regular rate Rhythm: regular rhythm Heart sounds: no gallops, no murmurs and no rubs Skin General skin exam: other ( warm) Extrem General: No clubbing, No cyanosis and No edema Assessment & Plan Assessment & Plan (1) Severe persistent asthma: Code(s): J45.50 - Severe persistent asthma, uncomplicated Category: Medical Plan: Well controlled on Fasenra, Advair, and albuterol MDI. Continue current regimen. (2) Environmental allergies: Code(s): Z91.09 - Other allergy status, other than to drugs and biological substances Category: Medical Plan: Well controlled on Fasenra. Continue current regimen. Coding Level of Care Code Est Pt Level 4 (94381) Diagnoses Severe persistent asthma J45.50 Environmental allergies Z91.09
[2024-08-05 13:33] VITALS: BP 100/62; PULSE 73; O2SAT 95; BMI 26.0
== END 2024-08-05 15:10 | disposition home or self-care (01) ==
PROVIDERS: PCP Internal Medicine; Visit Provider Internal Medicine Pulmonary Disease
DX: J45.50 Severe persistent asthma, uncomplicated (principal); Z91.09 Other allergy status, other than to drugs and biological substances
CPT/HCPCS: 99214

== ENCOUNTER → 2024-08-05 13:28 | Outpatient (BNVA) | payer OTHER, SELFPAY | PROVIDERS: PCP Internal Medicine; Visit Provider Internal Medicine Pulmonary Disease ==

== ENCOUNTER → 2024-08-26 11:43 | Outpatient (BNVA) | payer OTHER, SELFPAY | PROVIDERS: PCP Internal Medicine; Visit Provider Physician Assistant | DX: Z13.89 Encounter for screening for other disorder (principal) | CPT/HCPCS: 99203 ==

== ENCOUNTER → 2024-08-31 10:23 | Outpatient (BNVA) | payer OTHER, SELFPAY | PROVIDERS: PCP Internal Medicine; Visit Provider Physician Assistant | DX: Z13.89 Encounter for screening for other disorder (principal) | CPT/HCPCS: 99213 ==

== ENCOUNTER → 2024-09-14 10:35 | Outpatient (BNVA) | payer OTHER, SELFPAY | PROVIDERS: PCP Internal Medicine; Visit Provider Physician Assistant Medical | DX: Z13.89 Encounter for screening for other disorder (principal) | CPT/HCPCS: 99213 ==

== ENCOUNTER 2024-09-26 08:27 | Outpatient (AMB) | payer OTHER, SELFPAY ==
--- NOTE | 2024-09-26 08:29 | A.OFFVIS_ITS ---
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 He was recently seen at [facility] and referred back to our office for consideration of TPIs. Denies any recent cough, cold, infection, fever or other significant changes in medical history since last office visit. PRIOR: Patient presents to the office for evaluation of neck trigger point injection. He was initially seen in our office in 2021 for cervical spondylosis with radiculopathy. He eventually underwent C5-C6 cervical fusion by Dr. Davis at [facility] in March 2022 with good results. Today he presents with muscle spasms and tenderness in the projection of bilateral upper trapezius and rhomboids, worse on the left side. He was referred to our office by [facility] for potential trigger point injections. 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 He was initially on light duty and released to full duty on 06/18. He reports physical therapy completed for 4 weeks helped partially but continues with bilateral neck spasms and stiffness. He denies any radicular symptoms into his upper or lower extremities, denies occipital headaches, dizziness, shortness of breaths or chest pain. Neck presents with limited left lateral rotations and bending as well as bilateral upper trapezius and rhomboids tenderness with multiple taut bands, worse on the left. Denies any significant pain with cervical extension or flexion. Reports worse symptoms with pull ups, bicep curls, prolonged sitting at computer work or putting his shoes or socks on and off. Patient also tried OT therapy to adjust his work ergonomics for computer work without significant improvement. NSAIDs and muscle relaxant (cyclobenzaprine) have been partially beneficial. Patient has not tried acupuncture therapy. Denies any recent cough, cold, infection, fever or other significant changes in medical history since last office visit. Past Procedures: 01/08/22: attempted left C6-C7 epidural steroid injection-no pain relief PRIOR 01/10/22 Dr. Kramer: Jeff presents to report a headache he developed this morning. He felt fine on Thursday, and this morning. He started feeling severe frontal and temporal headache suddenly while at work, associated with dizziness. He feels unsteady when walking. Denies nausea or vomiting. Denies occipital or positional headache. Denies neck pain. PRIOR 12/30/21: Patient is a pleasant 56 years old male who presents to the office for an initial encounter with left neck pain and left shoulder pain. 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 Patient reports his neck pain radiates to his left side to left shoulder to his arm laterally and to left 4th and 5th fingers with significant numbness, tingling, and heaviness in those fingers. Patient was evaluated by a neurosurgeon Dr. Davis at [facility] last Thursday and was told he would benefit from cervical cortisone injection and no surgery at this time. Patient also completed 10 sessions of PT with minimal improvement in his symptoms. He reports cervical traction and ice massage were helpful but the effect lasted about an hour. Patient denies any fever, dizziness, headaches, weight loss, vision disturbances, dropping objects, tremors, weakness, bladder/bowel dysfunction or saddle anesthesia. The pain is worse in mid-morning and throughout the day and less severe at night time. He reports pain onset was gradual and constant with high pain intensity rated at 8-10/10 and least pain at 5/10. Patient states the pain is interfering with his sleep, activities of daily living, quality of life and that he cannot function normally. The patient reports the pain in terms of tissue damage as stabbing, lancinating, tingling, stinging, dull, sore, hurting, aching and heavy. He has been taking gabapentin and naproxen with continued symptoms. Denies any chiropractic manipulation, TENS unit or acupuncture. Denies any previous neck or shoulder injections or surgery. Rest, sitting or lying down alleviates the pain. Movements aggravate his pain. Today he rates his pain at 10/10. Patient had cervical MRI on 11/18/21 that showed advanced multifactorial degenerative changes at C3-C4 that result in severe left-sided foraminal stenosis and mild to moderate right-sided foraminal stenosis. At C5-C6, a left paracentral disc protrusion flattens left ventral cord and mildly narrows the central canal and multifactorial degenerative changes result in mild to moderate bilateral foraminal stenosis. At C6-C7, multifactorial degenerative changes result in moderate to severe left foraminal stenosis. This report with details is noted below. [facility] Medical History BPH (benign prostatic hyperplasia) Celiac disease Post-dural puncture headache Left shoulder pain Foraminal stenosis of cervical region Cervical spondylosis with radiculopathy Bilateral primary osteoarthritis of knee Asthma Sinusitis Environmental allergies Surgical History Hx of colonoscopy History of esophagogastroduodenoscopy (EGD) Hx of fusion of cervical spine (~03/2022) H/O left knee surgery H/O right knee surgery Social History Are you a primary manager of care to a significant other at home: No Do you presently have visiting nurse or other home services: No Alcohol intake: current Alcohol intake frequency: does not drink Patient Tobacco Use Status: Never used Tobacco Current occupational status: employed 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 Alert and oriented. Mood and affect appropriate. Follows and participates in conversation appropriately. Respiratory effort is unlabored. No cough. Able to transition from sit to stand unassisted. Ambulates with bilaterally normal heel strike and toe off. Able to stand and walk on toes and heels. Neck Other: Patient with limited cervical ROM with left lateral rotation. Reports no pain with cervical extension/flexion. Patient demonstrated 5/5 motor strength of bilateral upper extremities. 2 + radial pulses. Significant tightness throughout left upper trapezius as well as TTP throughout bilateral upper trapezius and rhomboid muscles. No paravertebral tenderness over facet joints bilaterally. Multiple taut bands palpated throughout bilateral upper trapezius muscles. Neck: Yes normal visual inspection, Yes no lymphadenopathy, Yes supple, No anterior neck swelling, No torticollis, Yes no JVD, No prominent supraclavicular fat pad and No prominent dorsocervical fat pad Resp Effort & Inspection: normal respiratory effort, able to speak in complete sent ences, no cough, no respiratory distress and symmetric chest movement Back/Spine/Pelvis Cervical Spine: No Lhermitte's sign positive, cervical muscular tenderness (bilateral upper trapezius and rhomboids, worse on the left), pain with cervical ROM (left lateral rotation and bending), Cervical spine scars present, cervical spasm (left>right), No Cervical spine tenderness and No step off deformity Thoracic/Lumbar Spine: thoracic and lumbar spine normal to inspection, thoraco- lumbar ROM normal, No thoracic spinal tenderness and No lumbar spinal tenderness Office Procedures Therapeutic Injection Therapeutic Injection Details: Pre-procedure diagnosis: Myofascial pain Post-procedure diagnosis: Myofascial pain Site and number of trigger points: Bilateral rhomboids and bilateral upper trapezius muscles After discussing risk, benefits, expectations and details of the procedure, patient signed the informed consent. Patient was placed in a sitting position with the neck exposed. Five to six tender points, (bilateral upper trapezius and bilateral rhomboids), were palpated, marked, and then prepped using Chloraprep swab. A 25-gauge, 1 1/2-inch needle was inserted into the area of maximal tenderness with sterile technique. In a fan-like distribution I injected 0.5-1 ml of 0.25% ropivacaine with kenalog 40 mg into each trigger point. The needle was withdrawn and bandaids were applied to injection sites. Patient tolerated the procedure well. Post-injection precautions were reviewed with the patient. The patient was discharged from the clinic . Post-procedure, breath sounds were equal at both sides of the chest. The patient tolerated the procedure well, without complication. The patient denied any numbness, paresthesia, or weakness. 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 COMPARISON: MRI cervical spine from 11/18/2021. TECHNIQUE: Multiplanar, multisequential imaging of the cervical spine was performed without contrast. FINDINGS: VERTEBRAL BODIES AND PARASPINAL SOFT TISSUES: The patient is status post previous anterior cervical discectomy and fusion with hardware instrumentation at the C5-C6 level; previous anterolisthesis at this level has normalized in a postoperative setting. Mild rightward curvature of the cervical spine visible. There are no compression fractures. Mild anterior subluxation noted at the C3-C4 level. There is severe left-sided facet arthropathy at C3-C4 and ankylosis of the right C5-C6 facet joint. The paraspinal soft tissues are unremarkable. The vertebral artery flow voids are maintained. The imaged lung apices are grossly clear. CERVICOMEDULLARY JUNCTION AND VISUALIZED POSTERIOR FOSSA: The craniovertebral junction and imaged portions of the brain parenchyma appear normal. No cord signal abnormality or syrinx is seen. SPINAL LEVELS: C2-C3: No disc pathology. Moderate left-sided facet arthrosis. No central canal stenosis or significant foraminal narrowing. C3-C4: Anterolisthesis and unroofing of the disc with endplate spurring and significant left-sided facet arthropathy, as on prior imaging with some progression. Findings result in severe left foraminal encroachment, also in part due to uncovertebral joint spurring. C4-C5: Very mild posterior disc bulge with [id number] facet arthropathy. No central canal stenosis. Very mild foraminal narrowing. C5-C6: Fusion changes anteriorly without central canal stenosis. Hypertrophic facet arthropathy and mild right foraminal narrowing. C6-C7: Shallow disc-osteophyte complex with [id number] loss of disc height, as on prior imaging. No central canal stenosis. Stable severe left foraminal narrowing. C7-T1: No disc pathology. No central canal stenosis or foraminal narrowing. IMPRESSION: Status post anterior cervical discectomy and fusion with hardware in place at the C5-C6 level. Stable anterolisthesis and unroofed disc at the C3-C4 level. Stable severe left foraminal narrowing due to bony encroachment. Stable moderate spondylosis at the C6-C7 level with severe left foraminal narrowing. Assessment & Plan Assessment & Plan (1) Cervical post-laminectomy syndrome: Code(s): M96.1 - Postlaminectomy syndrome, not elsewhere classified Category: Medical (2) Myofascial neck pain: Code(s): M54.2 - Cervicalgia Category: Medical (3) Cervical spondylosis: Code(s): M47.812 - Spondylosis without myelopathy or radiculopathy, cervical region Category: Medical (4) Hx of fusion of cervical spine: Onset Date: ~03/2022 Code(s): Z98.1 - Arthrodesis status Category: Surgical Plan Patient is status post bilateral upper trapezius and bilateral rhomboids trigger point injections. Patient tolerated procedure well and was discharged in stable condition with discharge instructions. Patient is aware that he can not receive another injections in these areas for another three months. Patient is aware to monitor for side effects. Continue gentle stretching exercises, good posture, adequate hydration, heat therapy, massage therapy, and muscle relaxants as needed. All questions and concerns have been answered and patient agreed with the plan. Follow up as needed. Orders: Orders AMB Trigger Point Injection Today M47.812 - Spondylosis without myelopathy or radiculopathy, cervical region, M54.2 - Cervicalgia, M96.1 - Postlaminectomy syndrome, not elsewhere classified Medications: New triamcinolone acetonide 40 mg Infiltration ONCE 1 mL 0RF M47.812 - Spondylosis without myelopathy or radiculopathy, cervical region, M54.2 - Cervicalgia, M96.1 - Postlaminectomy syndrome, not elsewhere classified Coding Level of Care Code Est Pt Level 3 (55897) Complex EM visit Add On G2211 Diagnoses Cervical post-laminectomy syndrome M96.1 Myofascial neck pain M54.2 Cervical spondylosis M47.812 Hx of fusion of cervical spine Z98.1 CPT Codes Therapeutic Injection - Ther Injection 2: [id number]-[id number] Point Injection 3 or more ([id number])
[2024-09-26 08:33] VITALS: BP 139/70; PULSE 78; O2SAT 97; BMI 24.4
== END 2024-09-26 08:51 | disposition home or self-care (01) ==
PROVIDERS: PCP Internal Medicine; Visit Provider Nurse Practitioner Family
DX: M96.1 Postlaminectomy syndrome, not elsewhere classified (principal); M54.2 Cervicalgia; M47.812 Spondylosis without myelopathy or radiculopathy, cervical region; Z98.1 Arthrodesis status
CPT/HCPCS: 20553; 99213

== ENCOUNTER → 2024-09-26 08:27 | Outpatient (BNVA) | payer OTHER, SELFPAY | PROVIDERS: PCP Internal Medicine; Visit Provider Nurse Practitioner Family | DX: M79.18 Myalgia, other site (principal); M96.1 Postlaminectomy syndrome, not elsewhere classified; M47.812 Spondylosis without myelopathy or radiculopathy, cervical region; M54.2 Cervicalgia; Z98.1 Arthrodesis status | CPT/HCPCS: 20553; 99212; J3300 ==

== ENCOUNTER 2024-10-10 09:20 | Emergency (ER) | payer OTHER, SELFPAY ==
--- NOTE | ~2024-10-10 | XR_ITS ---
EXAMINATION: XR CHEST CLINICAL INFORMATION: Cough/chest tightness. COMPARISON: 05/07/2023, 09/30/2021. TECHNIQUE: 2 views of the chest were obtained. FINDINGS: There is no gross pneumothorax. Heart size within normal limits. Trace bilateral pleural effusions. Mild dextroscoliosis of the thoracic spine with multilevel degenerative changes. Previously questioned 1.5 cm density overlying the posterior aspect of the right eighth rib on chest radiograph of 05/07/[address] scan of the chest had been recommended is less conspicuous, although evaluation of this region is limited due to multiple overlying bony structures. Possible 6 mm nodule overlying the anterior aspect of the left seventh rib. Mild opacities at the left costophrenic angle/posterior sulcus. XR/XR chest 2V IMPRESSION: Previously questioned 1.5 cm density overlying the posterior aspect of the right eighth rib on chest radiograph of 05/07/[address] scan of the chest had been recommended is less conspicuous, although evaluation of this region is limited due to multiple overlying bony structures. Possible 6 mm nodule overlying the anterior aspect of the left seventh rib. Mild opacities at the left costophrenic angle/posterior sulcus. Correlation with clinical exam and possible additional imaging with CT scan of the chest recommended. This study was presented today to 10/10/2024 for interpretation. Stat results provided at this time as requested by referring provider. Electronically signed by: Roxy Rocha MD 10/10/2024 12:00 PM [facility]
--- NOTE | ~2024-10-10 | CT_ITS ---
EXAMINATION: CT CHEST WITH CONTRAST CLINICAL INFORMATION: Abnormal findings on chest x-ray obtained earlier the same day. COMPARISON: No prior chest CT. Chest x-ray from earlier the same day. Chest x-ray from May 07, 2023. TECHNIQUE: Multidetector volumetric CT imaging of the chest was obtained after the administration of 65 mL of Omnipaque 350 intravenous contrast without immediate adverse reactions. Axial MIP volume rendering provided. Sagittal and coronal reformatted images were obtained. This CT examination was performed using dose optimization techniques as appropriate, variously including the following: *Automated exposure control *Adjustment of mA and/or kV according to patient size (this includes techniques or standardized protocols for targeted exams where dose is matched to indication/reason for exam; i.e. extremities or head) *Use of iterative reconstruction technique DLP: 295 mGy-cm FINDINGS: LUNGS: 1.36 cm right lower lobe groundglass right lower lobe nodule containing an approximately 0.8 cm, more solid-appearing component (image 270, series 5). Bibasilar linear densities suggesting fibrotic streaks and/atelectasis. MEDIASTINUM: Roughly 2.5 cm right lower pole thyroid nodule. PLEURA: There is no pleural effusion. No pleural mass or thickening. AXILLA: No lymphadenopathy by size criteria. UPPER ABDOMEN: Unremarkable OSSEOUS STRUCTURES: Decreased bone mineral density. Mild compression deformities of T6 and T7, unchanged compared with May 07, 2023. CT/CT chest w IV con IMPRESSION: 1.36 cm right lower lobe groundglass right lower lobe nodule containing an approximately 0.8 cm, more solid-appearing component. Follow-up chest CT in 3-6 months is recommended, per Fleischner Society guidelines. Roughly 2.5 cm right lower pole thyroid nodule. Recommend dedicated thyroid ultrasound examination performed on a nonemergent basis. Additional findings as above. Electronically signed by: Man Goodwin MD 10/10/2024 03:27 PM [facility]
[2024-10-10 09:31] VITALS: BP 122/58; PULSE 105; RESP 16; TEMP 36.5; O2SAT 97; BMI 25.1
--- NOTE | 2024-10-10 09:41 | ECG_ITS ---
Test Reason : sob Blood Pressure : / mmHG Vent. Rate : 082 BPM Atrial Rate : 082 BPM P-R Int : 152 ms QRS Dur : 098 ms QT Int : 354 ms P-R-T Axes : 064 032 045 degrees QTc Int : 413 ms Normal sinus rhythm with sinus arrhythmia Normal ECG When compared with ECG of 07-MAY-2023 12:22, No significant change was found Referred By: Harpreet Pappas Electronically Signed By:CARI LIANG
--- NOTE | 2024-10-10 09:42 | ED_ITS ---
HPI - General Adult General Chief complaint: Upper Respiratory Symptoms Stated complaint: diff breathing Time Seen by Provider: 10/10/24 09:34 Source: patient Mode of arrival: ambulatory Limitations: no limitations History of Present Illness ED Provider: Harpreet HOLLIDAY HPI narrative: 59-year-old male history of asthma, BPH, cervical radiculopathy presents to ED for shortness of breath for the past 2 weeks with coughing. Patient admits to shortness of breath and also alternate between nonproductive and productive cough. Patient states when cough is productive phelghm with green. Patient denies any leg swelling, chest pain, or calf pain. Patient admits to recent travel last week this past thursday. Patient denies any pleurisy. Patient states no relief with albuterol inhaler and [id number]-[id number] meds. Patient states having symptoms 2 weeks before traveling. Related Data Home Medications ?Medication ?Instructions ?Recorded ?Confirmed benralizumab 30 mg/mL subcutaneous 30 mg subcut Q8W 10/04/20 06/09/24 syringe (Kimberleeenra) Previous Rx's ?Medication ?Instructions ?Recorded beclomethasone dipropionate 80 2 spray intranasal DAILY 30 days 03/21/21 mcg/actuation nasal HFA inhaler #10.6 grams (QNASL) albuterol sulfate 90 mcg/actuation 2 puff inhalation Q4-6H PRN 09/30/21 aerosol inhaler shortness of breath or wheezing #6.7 grams fluticasone 500 mcg-salmeterol 50 1 inh inhalation BID #60 ea 02/09/24 mcg/dose blistr powdr for inhalation cyclobenzaprine 10 mg tablet 10 mg PO BID PRN muscle spasm #20 02/10/24 tabs tamsulosin 0.4 mg capsule 0.8 mg (2 x 0.4 mg) PO DAILY 90 06/07/24 days #180 caps dexamethasone 4 mg tablet 4 mg PO TID 6 days #18 tabs 08/26/24 azithromycin 250 mg tablet See Rx Instructions PO .COMPLEX #6 10/10/24 tabs benzonatate 200 mg capsule 200 mg PO TID PRN cough 5 days #15 10/10/24 caps prednisone 20 mg tablet 40 mg (2 x 20 mg) PO DAILY 5 days 10/10/24 #10 tabs Allergies Allergy/AdvReac Type Severity Reaction Status Date / Time gluten Allergy Intermediate Gastrointestinal Verified 10/10/24 09:32 Upset-celiac disease Penicillins [PCN] Allergy Intermediate HIVES Verified 10/10/24 09:32 Review of Systems 2 Review of Systems: Coughing, shortness of breath on exertion Yes all other systems are reviewed and are negative [facility] Past Medical History Medical History BPH (benign prostatic hyperplasia) Celiac disease Post-dural puncture headache Left shoulder pain Foraminal stenosis of cervical region Cervical spondylosis with radiculopathy Bilateral primary osteoarthritis of knee Asthma Sinusitis Environmental allergies Surgical History Hx of colonoscopy History of esophagogastroduodenoscopy (EGD) Hx of fusion of cervical spine (~03/2022) H/O left knee surgery H/O right knee surgery Social History Social History Are you a primary care services manager to a significant other at home: No Do you presently have visiting nurse or other home services: No Alcohol intake: current Alcohol intake frequency: does not drink Patient Tobacco Use Status: Never used Tobacco Advance Directives: No Advance Directives Information Provided: Yes Do you have a plan to hurt others: No Plan Current occupational status: employed Current occupation: [employer] Physical Exam ED Vital Signs: Vital Signs - 24 hr 10/10/24 09:31 10/10/24 09:57 10/10/24 13:06 Temperature 97.7 F 97.9 F Pulse Rate 105 H 105 H 79 Respiratory Rate 16 16 14 Blood Pressure 122/58 L 119/61 Pulse Oximetry 97 97 Oxygen Delivery Method Room Air Room Air 10/10/24 16:12 Temperature 97.7 F Pulse Rate 84 Respiratory Rate 16 Blood Pressure 122/65 Pulse Oximetry 96 Oxygen Delivery Method Room Air BMI result Body Mass Index 25.1 Const General: cooperative, healthy appearing, comfortable, no acute distress, well developed, alert, awake and Physically active Orientation/consciousness: oriented to time and patient oriented x3 HENMT Head: Yes normal to inspection, Yes No palpable skull fracture present, Yes normocephalic and Yes atraumatic Throat: Yes posterior oropharynx normal, Yes tonsils normal and Yes uvula midline Eyes General: appearance normal, both eyes and all related structures Neck Neck: Yes normal visual inspection, Yes full ROM, Yes no lymphadenopathy, Yes no meningeal signs, Yes trachea midline, Yes supple, No anterior neck swelling and No tender Chest Chest palpation & inspection: normal inspection of the chest and normal palpation of entire chest wall Resp Effort & Inspection: normal respiratory effort and able to speak in complete sentences Auscultation: wheezes expiratory wheezes (mild) Cardio Jugular venous distension: no JVD Heart sounds: S1 normal heart sound present and S2 normal heart sound present GI Inspection: Yes normal to inspection Palpation (GI): Soft to palpation, not firm, nontender, no guarding and not rigid General: No CVA tenderness and Yes no CVA tenderness Back/Spine/Pelvis Back: no CVA tenderness, No CVA tenderness and No back tenderness Skin General skin exam: no rashes or lesions noted, elasticity normal and turgor normal Neuro General: oriented to time, patient oriented x3, gait normal, tone normal, moves all extremities, Normal light touch and pain sensation, no meningeal signs, no focal motor deficits, CN's II-XI intact bilaterally and normal sensation to monofilament Extrem Other: Bilateral lower extremity negative for swelling, pitting edema, or calf tenderness.. General: Yes normal to inspection, Yes full ROM and Yes capillary refill normal Psych Appearance: grossly normal, well kempt and not disheveled Medications Administered Discontinued Medications Generic Name Dose Route Start Last Admin Trade Name Freq PRN Reason Stop Dose Admin Albuterol Sulfate 2.5 mg/ 5 mg 10/10/24 09:56 10/10/24 10:00 Albuterol Sulfate 2.5 mg INHALE 10/10/24 09:57 5 mg ONCE ONE Administration Iohexol 65 ml 10/10/24 13:04 10/10/24 13:04 Iohexol 350 Mg/Ml 100 Ml Infus..Btl IV 10/10/24 13:05 65 ml ONCE ONE Administration Prednisone 40 mg 10/10/24 09:41 10/10/24 10:00 Prednisone 20 Mg Tablet PO 10/10/24 09:42 40 mg ONCE ONE Administration Medical Decision Making Medical Decision Making MDM Narrative: 59-year-old male presenting with shortness of breath for the past 2 weeks with coughing at times green phlegm. Patient denies any pleurisy or calf pain. Patient states had URI symptoms before traveling last Thursday but will do D- dimer. ED bronch and prednisone ordered. EKG labs ordered. 11:24pm: Well's Criteria Score 1.5. D-dimer negative. First troponin negative. BNP negative. SARs strep negative. Waiting for chest x-ray 12:00pm: Chest x-ray shows mild left opacities and also right-sided nodule and density. Radiologist recommend contrast for better evaluation. Pain for sent for CT IV contrast. Patient states feeling better not in any respiratory distress. Patient feels better after receiving nebulizer meds. 3:53pm: Chest CT shows right ground-glass nodule. Chest CT does not show any obvious focal pneumonia. Patient will be treated as asthma bronchitis exacerbation. Patient informed of chest lesion nodule and to follow up with primary care provider and repeat imaging in 3-6 months. Patient also informed of thyroid nodule on CT scan. Presently not suspecting CHF, CO, PE, pericarditis, myocarditis, cardiac tamponade or any other life threatening etiology. Patient explained worrisome signs and informed to return to the ED immediately. Patient given copy of labs and images Differential Diagnosis Differential Diagnoses: The differential diagnosis associated with the presentation includes (Pneumonia, CO, COVID influenza) Admission/Observation Consideration of admission/observation: Escalation of care including admission/observation considered Lab Data MDM Lab Attestation statement: I reviewed the patient's lab results. 10/10/24 10:01 10/10/24 10:01 Labs: Lab Results 10/10/24 10/10/24 10/10/24 Range/Units 09:37 10:01 13:01 WBC 12.9 H (4.8-10.8) X10*3/uL RBC 4.82 (4.60-5.80) X10*6/uL Hgb 15.3 (14.0-18.0) g/dl Hct 41.6 L (42.0-52.0) % MCV 86.3 (80.0-98.0) fL MCH 31.7 (27.0-33.0) pg MCHC 36.8 H (31.0-36.0) g/dl RDW 11.9 (11.0-16.0) % Plt Count 190 (160-400) X10*3/uL MPV 9.6 (9.4-12.4) fL Immature Gran % (Auto) 0.9 H (0.0-0.4) % Neut % (Auto) 83.0 H (45-73) % Lymph % (Auto) 11.7 L (20-40) % [place] % (Auto) 4.2 (2-11) % Eos % (Auto) 0.0 (0-4) % Baso % (Auto) 0.2 (0-2) % Lymph # (Auto) 1.5 (1.2-4.9) X10*3/uL [place] # (Auto) 0.5 (0.1-1.2) X10*3/uL Eos # (Auto) 0.0 (0.0-0.4) X10*3/uL Baso # (Auto) 0.0 (0.0-0.2) X10*3/uL Abs Immat Gran (auto) 0.11 H (0.00-0.03) X10*3/uL Absolute Neuts (auto) 10.7 H (2.0-8.3) x10*3/uL Absolute Nucleated RBC 0.000 (0.0-0.012) X10*3/uL Nucleated RBC % (auto) 0.0 (0.0-0.2) /100WBC PT 11.4 (10.9-12.4) SEC INR 1.0 (0.9-1.1) APTT 32.1 (26.0-36.8) SEC D-Dimer High Sensitivty < 150 NG/ML Sodium 139 (135-145) mmol/L Potassium 3.8 (3.3-5.1) mmol/L Chloride 108 (96-108) mmol/L Carbon Dioxide 25 (22-29) mmol/L Anion Gap 10 L (12-20) BUN 10 (9-16) mg/dL Creatinine 0.86 (0.5-1.4) mg/dL Estim Creat Clear Calc 95.4 Estimated GFR > 60 Random Glucose 122 H (60-115) mg/dL Calcium 9.0 (8.4-10.2) mg/dL Total Bilirubin 0.4 (0.0-1.0) mg/dL AST 21 (5-37) U/L ALT 21 (0-40) U/L Alkaline Phosphatase 68 (39-117) U/L Troponin I High Sens < 2.7 < 2.7 (<3.5-35.0) ng/L B-Natriuretic Peptide < 10 (<100) pg/mL Total Protein 6.5 (6.5-8.0) g/dL Albumin 3.9 (3.5-5.0) g/dL Influenza Type A (PCR) NEGATIVE (Negative) Influenza Type B (PCR) NEGATIVE (Negative) RSV RNA Qual (PCR) NEGATIVE (Negative) SARS-CoV-2 RNA (RT-PCR) NEGATIVE (Negative) S. pyogenes GrpA JENNIE Negative (Negative) Independent Interpretation I performed an independent interpretation of an: EKG (EKG negative STEMI), Plain X-Ray and CT Scan Radiology Impression Discussion of test interpretation with radiology: I have reviewed the radiologist's reading. Independent Historian Clinical information obtained from an independent historian. History obtained from or confirmed by: Other (Patient) Discharge Plan Discharge Clinical Impression: Bronchitis Patient Disposition: Home, Self-Care Instructions: Acute Bronchitis (ED) Additional Instructions: Continue the albuterol inhaler as needed. You will be discharged with azithromycin and steroids. Return to the ED immediately for any shortness of breath, coughing up blood, calf pain, fever, chills, weakness, dizziness, syncopal episode, or any other concerning symptoms. Recommend follow-up with primary care provider. CT/CT chest w IV con IMPRESSION: 1.36 cm right lower lobe groundglass right lower lobe nodule containing an approximately 0.8 cm, more solid-appearing component. Follow-up chest CT in 3-6 months is recommended, per Fleischner Society guidelines. Roughly 2.5 cm right lower pole thyroid nodule. Recommend dedicated thyroid ultrasound examination performed on a nonemergent basis. Additional findings as above. Electronically signed by: Man Goodwin MD 10/10/2024 03:27 PM [facility] Prescriptions: New azithromycin 250 mg tablet See Rx Instructions .ROUTE .COMPLEX Qty: 6 0RF Rx Instructions: For 250 mg dose pack: take 500 mg today (day 1), then 250 mg for 4 days (days 2-5) prednisone 20 mg tablet 40 mg PO DAILY 5 Days Qty: 10 0RF benzonatate 200 mg capsule 200 mg PO TID PRN (Reason: cough) 5 Days Qty: 15 0RF No Action QNASL 80 mcg/actuation HFA aerosol inhaler 2 spray intranasal DAILY 30 Days Qty: 10.6 1RF Rx Instructions: administer into one nostril albuterol sulfate 90 mcg/actuation HFA aerosol inhaler 2 puff inhalation Q4-6H PRN (Reason: shortness of breath or wheezing) Qty: 6.7 0RF fluticasone propion-salmeterol 500-50 mcg/dose blister with device 1 inh inhalation BID Qty: 60 0RF Fasenra 30 mg/mL syringe 30 mg subcut Q8W tamsulosin 0.4 mg capsule 0.8 mg PO DAILY 90 Days Qty: 180 1RF dexamethasone 4 mg tablet 4 mg PO TID 6 Days Qty: 18 0RF Rx Instructions: take with food [employer] cyclobenzaprine 10 mg tablet 10 mg PO BID PRN (Reason: muscle spasm) Qty: 20 0RF Referrals: Paulina Dietz MD [Primary Care Provider] - (Bronchitis. Right lung ground-glass nodule) Stand Alone Forms: Work/School Release Interventions: ED Discharge Assessment Last Done: 10/10/24 16:12 Discharge Date/Time: 10/10/24 16:13 Print Language: Lao
[2024-10-10 09:57] VITALS: PULSE 105; RESP 16; O2SAT 97
[2024-10-10] MEDS: predniSONE 20 MG TABLET 40 MG PO (10:00)
[2024-10-10] MEDS: Albuterol Sulfate 2.5 MG, Albuterol Sulfate (0.083%) 2.5 MG 5 MG INHALE (10:00)
[2024-10-10 10:06] LABS: MANUAL DIFF FLAG NO
[2024-10-10 10:07] LABS: IDNOW Serial# 08D9AD1C
[2024-10-10 10:08] LABS: Strep A Nucleic Acid Negative (Negative)
[2024-10-10 10:09] LABS: Basophils Percent Auto 0.2 % (0-2); Hematocrit 41.6 % (42.0-52.0); Hemoglobin 15.3 g/dl (14.0-18.0); Imm Gran Abs Auto 0.11 X10*3/uL (0.00-0.03); Imm Gran Pct Auto 0.9 % (0.0-0.4); Lymphocytes Absolute Auto 1.5 X10*3/uL (1.2-4.9); Lymphocytes Percent Auto 11.7 % (20-40); Mean Corpuscular HGB Conc 36.8 g/dl (31.0-36.0); Mean Corpuscular Hemoglobin 31.7 pg (27.0-33.0); Mean Corpuscular Volume 86.3 fL (80.0-98.0); Mean Platelet Volume 9.6 fL (9.4-12.4); Monocytes Absolute Auto 0.5 X10*3/uL (0.1-1.2); Monocytes Percent Auto 4.2 % (2-11); Neutrophils Absolute Auto 10.7 x10*3/uL (2.0-8.3); Platelet Count 190 X10*3/uL (160-400); Red Blood Count 4.82 X10*6/uL (4.60-5.80); Red Cell Distribution Width 11.9 % (11.0-16.0); White Blood Count 12.9 X10*3/uL (4.8-10.8)
--- NOTE | 2024-10-10 10:10 | PC.NURSE ---
a&ox4. vss and up to date. pt presents to the ED w/ URI sx x 3 weeks. pt reports an increase in sob recently w/ chest tightness induced by productive cough (green sputum). pt also reporting chills w/o fever. hx of asthma - minimal relief w/ inhalers at home. pt seems to be in no respiratory distress - no sob/wob noted. respirations even/unlabored. slightly wheezy upon auscultation. 20gIV placed in the left AC - labs/swabs obtained/sent to lab. ekg performed. medication administered per provider order. pt currently waiting for chest xray to be completed at this time. receiving breathing tx via EMS. effectiveness pending. plan of care ongoing. call garvin placed within reach.
[2024-10-10 10:18] LABS: Prothrombin Time 11.4 SEC (10.9-12.4)
[2024-10-10 10:20] LABS: D Dimer High Sensitivity < 150 NG/ML; Partial Thromboplastin Time 32.1 SEC (26.0-36.8)
[2024-10-10 10:28] LABS: Alanine Aminotransferase 21 U/L (0-40); Albumin Level 3.9 g/dL (3.5-5.0); Alkaline Phosphatase 68 U/L (39-117); Anion Gap 10 (12-20); Aspartate Amino Transferase 21 U/L (5-37); Bilirubin Total 0.4 mg/dL (0.0-1.0); Blood Urea Nitrogen 10 mg/dL (9-16); Carbon Dioxide 25 mmol/L (22-29); Chloride 108 mmol/L (96-108); Creatinine Clr Calc Pharmacy 95.4; Estimated Glomerular Filt Rate > 60; Glucose Random 122 mg/dL (60-115); Potassium 3.8 mmol/L (3.3-5.1); Sodium 139 mmol/L (135-145); Total Protein 6.5 g/dL (6.5-8.0)
--- NOTE | 2024-10-10 10:31 | PC.NURSE ---
pt getting chest xray at this time.
[2024-10-10 10:32] LABS: Influenza A PCR NEGATIVE (Negative); Influenza B PCR NEGATIVE (Negative); Resp Syncy Virus RNA Qual PCR NEGATIVE (Negative); SARS COV2 PCR INHOUSE NEGATIVE (Negative)
[2024-10-10 10:34] LABS: B Type Natriuretic Peptide < 10 pg/mL (<100)
[2024-10-10 10:53] LABS: Troponin-I High Sensitivity < 2.7 ng/L (<3.5-35.0)
[2024-10-10] MEDS: iohexoL 350 MG/ML 100 ML INFUS..BTL 65 ML IV (13:04)
[2024-10-10 13:06] VITALS: BP 119/61; PULSE 79; RESP 14; TEMP 36.6; O2SAT 97
[2024-10-10 13:37] LABS: Troponin-I High Sensitivity < 2.7 ng/L (<3.5-35.0)
[2024-10-10 16:12] VITALS: BP 122/65; PULSE 84; RESP 16; TEMP 36.5; O2SAT 96
== END 2024-10-10 16:13 | disposition home or self-care (01) ==
PROVIDERS: Physician Assistant; Emergency Provider Emergency Medicine; PCP Internal Medicine
DX: J40 Bronchitis, not specified as acute or chronic (principal); R06.02 Shortness of breath; R05.9 Cough, unspecified; I49.8 Other specified cardiac arrhythmias; Z79.899 Other long term (current) drug therapy; Z03.818 Encounter for observation for suspected exposure to other biological agents ruled out
CPT/HCPCS: 0241U; 36415; 71046; 71260; 80053; 83880; 84484; 85025; 85379; 85610; 85730; 87651; 93005; 94640; 99284; Q9967

== ENCOUNTER → 2024-10-10 09:41 | Outpatient (BNV) | payer OTHER, SELFPAY | PROVIDERS: Emergency Provider Emergency Medicine; PCP Internal Medicine; Visit Provider Internal Medicine | DX: R06.02 Shortness of breath (principal) | CPT/HCPCS: 93010 ==

== ENCOUNTER → 2024-10-12 10:35 | Outpatient (BNVA) | payer OTHER, SELFPAY | PROVIDERS: PCP Internal Medicine; Visit Provider Physician Assistant | DX: Z13.89 Encounter for screening for other disorder (principal) | CPT/HCPCS: 99213 ==

== ENCOUNTER 2024-11-01 11:59 | Outpatient (RCR) | payer OTHER, SELFPAY | END 2024-12-06 12:39 | disposition home or self-care (01) | LOC: HO.PT 11:59 | PROVIDERS: PCP Internal Medicine; Visit Provider Physician Assistant Medical | DX: M54.2 Cervicalgia (principal) | CPT/HCPCS: 97014; 97110; 97140; 97161 ==

== ENCOUNTER → 2024-11-11 09:57 | Outpatient (BNVA) | payer OTHER, SELFPAY | PROVIDERS: PCP Internal Medicine; Visit Provider Physician Assistant | DX: Z13.89 Encounter for screening for other disorder (principal) | CPT/HCPCS: 99203 ==

== ENCOUNTER 2024-11-17 16:23 | Outpatient (REF) | payer OTHER, SELFPAY ==
--- NOTE | ~2024-11-17 | US_ITS ---
CLINICAL HISTORY: thyroid nodule Thyroid ultrasound. No comparison. Findings: Right lobe 6.6 x 3.6 x 2.6 cm. Left lobe 5.1 x 1.6 x 1.9 cm. Isthmus 5 mm in thickness. The thyroid parenchyma is relatively homogeneous. There are multiple small cysts and cystic/solid nodules bilaterally without follow-up recommendations. Right lobe lower pole 2.9 x 2.3 x 2.9 cm nodule. Solid, predominantly isoechoic, lobulated margin, wider than tall, no echogenic foci. TI-RADS category 4. Recommend biopsy if not performed previously. Left lobe midportion 1.1 x 0.7 x 1 cm nodule. Cystic and solid, isoechoic, ill-defined margin, wider than tall, no echogenic foci. TI-RADS category 2. No followup recommendations. No other nodules with follow-up recommendations are seen. Impression: Nodule right lobe lower pole recommend biopsy if not performed previously. Other findings as above. TI-RADS Categories TR1 and TR2 nodules do not have followup recommendations TR3 (FNA >= 2.5cm, F/U >= 1.5 cm at one, 3 and 5 years) TR4 (FNA >= 1.5cm, F/U >= 1cm at 1, 2, 3, and 5 years) TR5 (FNA >= 1cm, F/U >=0.5 cm yearly for 5 years) This document has been electronically signed by: Gerardo Blair MD on 11/17/2024 18:10:08
== END 2024-11-17 16:24 | disposition home or self-care (01) ==
LOC: HO.US 16:23
PROVIDERS: Visit Provider Internal Medicine
DX: E04.1 Nontoxic single thyroid nodule (principal)
CPT/HCPCS: 76536

== ENCOUNTER → 2024-11-17 16:40 | Outpatient (BNV) | payer OTHER, SELFPAY | PROVIDERS: Visit Provider Radiology Diagnostic Radiology | DX: E04.1 Nontoxic single thyroid nodule (principal) | CPT/HCPCS: 76536 ==

== ENCOUNTER 2024-12-14 09:18 | Outpatient (AMB) | payer OTHER, SELFPAY ==
[2024-12-14 09:25] VITALS: BP 108/62; PULSE 81; O2SAT 96; BMI 25.1
--- NOTE | 2024-12-14 09:25 | A.OFFVIS_ITS ---
Vital Signs 12/14/24 09:25 Height 5 ft 11 in Weight 179 lb 10.828 oz BMI 25.1 BP 108/62 Blood Pressure Location Rt brachial Position Sitting Pulse 81 Pulse Source Doppler Pulse Oximetry (%) 96 Oxygen Delivery Method Room Air Intake Visit Reasons: Asthma-pulm nod? Allergies gluten Allergy (Intermediate, Verified 12/14/24 09:36) Gastrointestinal Upset-celiac disease Penicillins [PCN] Allergy (Intermediate, Verified 12/14/24 09:36) HIVES HPI HPI Asthma-pulm nod?: Details: 59-year-old gentleman, lifetime nonsmoker, followed for underlying severe persistent allergic asthma. He continues on Fasenra and Advair 500 with good symptomatic control of his asthma. He rarely uses albuterol MDI. Patient has a bronchitic exacerbation in September for which he had chest imaging that demonstrated right 1.3 cm pulmonary nodule, ground-glass, but with 8 mm solid component. [facility] Medical History BPH (benign prostatic hyperplasia) Celiac disease Post-dural puncture headache Left shoulder pain Foraminal stenosis of cervical region Cervical spondylosis with radiculopathy Bilateral primary osteoarthritis of knee Asthma Sinusitis Environmental allergies Surgical History Hx of colonoscopy History of esophagogastroduodenoscopy (EGD) Hx of fusion of cervical spine (~03/2022) H/O left knee surgery H/O right knee surgery Social History Are you a primary rn palliative care to a significant other at home: No Do you presently have visiting nurse or other home services: No Alcohol intake: current Alcohol intake frequency: does not drink Patient Tobacco Use Status: Never used Tobacco Current occupational status: employed Current occupation: [employer] Systems Const Denies daytime sleepiness, Denies excessive sweating, Denies fatigue, Denies fever(s), Denies lethargy, Denies malaise, Denies night sweats, Denies snoring and Denies weight loss Eyes Denies blurry vision and Denies itchy eyes ENT Denies nasal congestion, Denies post nasal drip, Denies sinus pain, Denies sinus pressure and Denies other ( Thrush) Card Denies chest pain, Denies pedal edema, Denies dyspnea, Denies orthopnea and Denies paroxysmal nocturnal dyspnea Resp Denies cough, Denies hemoptysis, Denies excessive phlegm production, Denies dyspnea, Denies snoring and Denies wheezing GI Denies abdominal pain and Denies heartburn Musc Denies myalgias, Denies arthralgias and Denies joint swelling Skin/Breast Denies rash Neuro Denies memory loss and Denies seizure-like activity Psych Denies abnormal sleep pattern, Denies anxiety and Denies memory loss Endo Denies excessive sweating, Denies fatigue and Denies heat intolerance Maicol/Lymph Denies easy bruising Aller/Immun Denies itchy eyes, Denies seasonal rhinorrhea and Denies wheezing Physical Exam Vital Signs: Last Vital Signs Pulse 81 12/14/24 09:25 BP 108/62 12/14/24 09:25 Pulse Ox 96 12/14/24 09:25 Oxygen Delivery Method Room Air 12/14/24 09:25 BMI result Body Mass Index 25.1 Const General: no acute distress and alert Nutritional Appearance: not obese Orientation/consciousness: Other orientation findings ( oriented) HEENT Head: Yes atraumatic Eyes General: appearance normal, both eyes and all related structures Sclerae: sclerae normal EOM: EOMs intact bilaterally Neck Neck: Yes supple Lymphatic: no lymphadenopathy noted Resp Effort & Inspection: normal respiratory effort and no use of accessory muscles Auscultation: clear to auscultation bilaterally Cardio Rate: regular rate Rhythm: regular rhythm Heart sounds: no gallops, no murmurs and no rubs Skin General skin exam: other ( warm) Extrem General: No clubbing, No cyanosis and No edema Assessment & Plan Assessment & Plan (1) Pulmonary nodule/lesion, solitary: Code(s): R91.1 - Solitary pulmonary nodule Category: Medical Plan: Will repeat CT chest in 3 months from index one. (2) Severe persistent asthma: Code(s): J45.50 - Severe persistent asthma, uncomplicated Category: Medical Plan: Well controlled on Fasenra and Advair. Continue current regimen. (3) Environmental allergies: Code(s): Z91.09 - Other allergy status, other than to drugs and biological substances Category: Medical Plan: Well controlled on Fasenra. Continue current regimen. Orders: Orders CT chest wo IV con 01/11/25 R91.1 - Solitary pulmonary nodule Coding Level of Care Code Est Pt Level 4 (69462) Diagnoses Pulmonary nodule/lesion, solitary R91.1 Severe persistent asthma J45.50 Environmental allergies Z91.09
--- OUTSIDE RECORDS SUMMARY | 2024-12-14 09:29 | XMS_ITS | Clinical Summary ---
Author Organization [facility] [address] [place] [address] [place] [phone] Phone Care Team Providers Care Spray Drier Operator Helper Name Role Phone Paulina Dietz MD Primary Care Provider [phone] Allergies Active Allergy Reactions Criticality Noted Date Comments Penicillin G Potassium 10/14/2006 Medications tamsulosin (FLOMAX) 0.4 mg 24 hr capsule Take 2 capsules (0.8 mg total) by mouth. 4 06/01/20 25 Active albuterol HFA (PROAIR HFA ; PROVENTIL HFA ; VENTOLIN HFA) 90 mcg/actuation inhaler Inhale 2 puffs by mouth every 6 (six) hours if needed for wheezing or shortness of breath. 8.5 g 2 5 Active fluticasone propion-salmete roL (ADVAIR DISKUS) 500-50 mcg/dose diskus inhaler Inhale 1 puff by mouth 2 (two) times a day. 1 each 2 5 Active fluticasone propion-salmete roL (ADVAIR DISKUS) 500-50 mcg/dose diskus inhaler Inhale 1 puff by mouth. 4 11/15/19 25 Discontinu ed(Reorder ) albuterol HFA (PROAIR HFA ; PROVENTIL HFA ; VENTOLIN HFA) 90 mcg/actuation inhaler Inhale 2 puffs by mouth every 6 (six) hours if needed for wheezing or shortness of breath. 8.5 g 2 4 11/15/19 25 Discontinu ed(Reorder ) Active Problems Problem Noted Date Diagnosed Date Thyroid nodule 11/14/2024 Overview (11/14/2024): initial discovery 09/2024, [facility], [place] for URI Pulmonary nodules 11/14/2024 Overview (11/14/2024): 1.36cm, at [facility] Asthma 03/09/2018 Allergic rhinitis 09/02/2017 Chronic obstructive pulmonary disease 09/02/2017 Prostatism 01/19/2017 Meniscus, medial, derangement 12/31/2010 Celiac sprue 08/20/2010 Overview (09/02/2024): Duodenal bx and TTG negative Aug, 2014. IBS (irritable bowel syndrome) 08/20/2010 Encounters Date Type Department Care Team Description 11/16/2024 Telephone Adult Medicine [address] [phone] Paulina Dietz MD ULTRASOUND ORDER 11/14/2024 11:00 AM EST Office Visit Adult Medicine [address] [phone] Paulina Dietz MD Pulmonary emphysema, unspecified emphysema type (CMS/HCC) (Primary Dx); Prostatism; Pulmonary nodules; Thyroid nodule from Last 3 Months Immunizations Name Administration Dates Next Due H1N1 Inj Preservative Free 08/26/2009 Influenza Quadravalent, MDCK , 0.5ml, with preservative (Flucelvax) 6mo and older 09/25/2022,09/16/2021,08/22/2020,2018,09/07/2018 Influenza trivalent, 0.5mL, preservative free (Fluarix; FluLaval; Fluzone) ages 6mo and older (Afluria) 3 years and older 07/26/2009,10/14/2006,09/01/2005 Influenza, Unspecified 07/26/2019,08/27/2018 Tdap Tetanus diptheria acell ular pertussis (Boostrix; Adacel) 7yo and older 01/09/2021,10/30/2008 Surgical History Surgery Date Site/Laterality Comments OTHER SURGICAL HISTORY PROCEDURE: [place] ARTHRS KNEE W/MENISCECTOMY MED&LAT W/SHAVING; COMMENT: Dr. Cruz, 08/27/06, L knee ESOPHAGOGASTRODUODENOSCOPY 2013 PROCEDURE: [place] EGD TRANSORAL BIOPSY SINGLE/MULTIPLE; COMMENT: visually normal; duodenal bx: normal. COLONOSCOPY 2013 PROCEDURE: [place] COLONOSCOPY FLX DX W/COLLJ SPEC WHEN PFRMD; COMMENT: normal Medical History Medical History Date Comments Allergic rhinitis 09/02/2017 DX:Allergic rh initis Celiac sprue 08/20/2010 DX:Celiac sprue; COMMENT: Duodenal bx and TTG negative Aug, 2014. Chronic obstructive pulmonar y disease (CMS/HCC) 09/02/2017 DX:Chronic obstructive pulmo nary disease (HCC) IBS (irritable bowel syndrome) 08/20/2010 D X:IBS (irritable bowel syndrome) Meniscus, medial, derangement 12/31/2010 DX :Meniscus, medial, derangement Prostatism 01/19/2017 DX:Prostatism Family History Medical History Relation Name Comments Other: melanoma Brother 1 from me lanoma at age 62 Stroke Father age 78, fr om brain tumor Other: AVR age 62 Mother Relation Name Status Comments Brother 1 Brother 2 of melanom a- 60's Brother 3 Alive Father Mother Sister Alive Social History Tobacco Use Types Packs/Day Years Used Date Smoking Tobacco: Never Smokeless Tobacco: Never Tobacco Cessation:Counseling Given: Not Answered Alcohol Use Standard Drinks/Week Comments No 0 (1 standard drink = 0.6 oz pur e alcohol) Sex and Gender Information Value Date Recorded Sex Assigned at Not on file Legal Sex Male 4:26 AM EST Gender Identity Not on file Sexual Orientation Not on file Obstetrics History Last Filed Vital Signs Vital Sign Reading Time Taken Comments Blood Pressure 104/60 11/14/2024 11:29 AM EST Pulse 82 11/14/2024 11:29 AM EST Temperature 36.1 ??C (96.9 ??F) 11/14/2024 11:[address] Respiratory Rate 16 11/14/2024 11:29 AM EST Oxygen Saturation - - Inhaled Oxygen Concentration - - Weight 83 kg (183 lb) 11/14/2024 11:29 AM EST Height 177.8 cm (5' 10 ) 11/14/2024 11:29 AM EST Body Mass Index 26.26 11/14/2024 11:29 AM EST Plan of Treatment Upcoming Encounters Date Type Department Care Team (Late st Contact Info) Description 09/25/2025 2:00 PM EST Office Visit Adult Medicine [facility] [address] [place] [phone] Paulina Dietz MD [address] [place] [address] Health Maintenance Due Date Last Done Comments Hepatitis B Vaccines (1 of 3 - 19+ 3-dose series) 02/25/1984 Pneumococcal Vaccine: 50+ Years (1 of 2 - PCV) 02/25/1984 Pneumococcal Vaccine: Pediatrics (0 to 5 Years) and At-Risk Patients (6 to 64 Years) (1 of 2 - PCV) 02/25/1984 Zoster Vaccines (1 of 2) 2015 Cholesterol Screening (Lipid Panel) 10/04/2022 Colorectal Cancer Screening: Colonoscopy 10/04/2022 Depression Screening 10/04/2022 HIV Screening 10/04/2022 Hepatitis C Screening 10/04/2022 Social Influencers of Health Screening 10/04/2022 COVID-19 Vaccine (3 - 2023- season) 2024 11/19/2020, 10/31/2020 DTaP,Tdap,and Td Vaccines (4 - Td or Tdap) 01/23/2034 01/24/2024, 01/09/2021, 10/30/2008 RSV Immunization Patients 60+ Years Old (1 - 1-dose 75+ series) 02/25/2040 Influenza Vaccine Completed 08/04/2024, , 09/16/2021, Additional history exists HIB Vaccines Aged Out No longer eligi ble based on patient's age to complete this topic HPV Vaccines Aged Out No longer eligi ble based on patient's age to complete this topic Hepatitis A Vaccines Aged Out No long er eligible based on patient's age to complete this topic IPV Vaccines Aged Out No longer eligi ble based on patient's age to complete this topic MMR Vaccines Aged Out No longer eligi ble based on patient's age to complete this topic Meningococcal ACWY Vaccine Aged Out N o longer eligible based on patient's age to complete this topic Meningococcal B Vacine Aged Out No lo nger eligible based on patient's age to complete this topic RSV Immunization Patients Under 20 months Aged Out No longer eligible based on patient's age to complete this topic Varicella Vaccines Aged Out No longer eligible based on patient's age to complete this topic Insurance [employer] [facility] Care Teams Spray Drier Operator Helper Relationship Specialty Start Date End Date Paulina Dietz MD [address] [place] [address] PCP - General 03/12/04
--- OUTSIDE RECORDS SUMMARY | 2024-12-14 09:30 | XMS_ITS | Encounter Summary ---
Author Organization [facility] Address [address] [place] [address] Care Team Providers Care Reaming Machine Operator Name Role Phone Paulina Dietz MD Primary Care Provider [phone] Reason for Visit * Reason Onset Date Comments ULTRASOUND ORDER 11/16/2024 Encounter Details Date Type Department Care Team ([facility] st Contact Info) Description 11/16/2024 Telephone Adult Medicine [facility] [address] [place], [place] [phone] Paulina Dietz MD [address] [place] [address] ULTRASOUND ORDER Social History Tobacco Use Types Packs/Day Years Used Date Smoking Tobacco: Never Smokeless Tobacco: Never Alcohol Use Standard Drinks/Week Comments No 0 (1 standard drink = 0.6 oz pur e alcohol) Sex and Gender Information Value Date Recorded Sex Assigned at Not on file Legal Sex Male 4:26 AM EST Gender Identity Not on file Sexual Orientation Not on file documented as of this encounter Progress Notes * Jammie Ring MA - 11/17/2024 12:04 PM EST I faxed over a new and signed US order to [facility] on 11/16/24 I called and spoke with Cesar on 11/17/24 to make sure he got his US and was all set. Cesar said he did get his US and thanked us for getting it over to * Paulina Dietz MD - 11/16/2024 12:20 PM EST Please try to explain to the patient. It is a lot easier if ultrasound could be done here, easy forme to get record, or for future comparison. If I need to send patient to the specialist, it is also easier for the specialist to get the recordusing the same computer system and to discuss with radiologist. * Aimee Fisher - 11/16/2024 10:00 AM EST Patient states he had seen Dr Dietz and he ordered an ultrasound of his neck. Patient states he works at [employer] and because they have radiology services there, he has to have it done at [place]. Patient states they can get him in this afternoon for this ultrasound and he is asking that the order be faxed to [facility] at [phone]. documented in this encounter Plan of Treatment Upcoming Encounters Date Type Department Care Team (Late st Contact Info) Description 09/25/2025 2:00 PM EST Office Visit Adult Medicine [facility] [address] [place] [phone] Paulina Dietz MD [address] [place] [phone] documented as of this encounter Visit Diagnoses Not on filedocumented in this encounter Care Teams Reaming Machine Operator Relationship Specialty Start Date End Date Paulina Dietz MD [address] [place] [phone] PCP - General 03/12/04 documented as of this encounter
--- OUTSIDE RECORDS SUMMARY | 2024-12-14 09:30 | XMS_ITS | Encounter Summary ---
Author Organization [facility] Address [address] [place] [address] Care Team Providers Care Pathology Specialist Name Role Phone Paulina Dietz MD Primary Care Provider [phone] Reason for Referral * Imaging (Routine) - Pending Review Specialty Diagnoses / Procedures Referred By Janay overton Referred To Contact Radiology Diagnoses Thyroid nodule Procedures US Head Neck Soft Tissue Paulina Dietz MD [address] [place] [address] Phone: tel: fax: [address] Phone: tel: Referral ID Status Reason Start Date Expiration Date V isits Requested Visits Authorized [id number] Pending Review 11/14/2024 11/14/2025 1 1 * Consultation (Routine) - Closed Specialty Diagnoses / Procedures Referred By Janay t Referred To Contact Pulmonary Disease / Pulmonology Diagnoses Pulmonary nodules Paulina Dietz MD [address] [place] [address] Phone: tel: fax: Pulmon[address] [phone] Phone: tel: fax: Referral ID Status Reason Start Date Expiration Date V isits Requested Visits Authorized [id number] Closed Specialty Services Required 11/14/2024 11/14/2025 1 1 Reason for Visit * Reason Comments follow up medication review Encounter Details Date Type Department Care Team (Late st Contact Info) Description 11/14/2024 11:00 AM EST Office Visit Adult Medicine [facility] [address] [place] [phone] Paulina Dietz MD [address] [place] [address] Pulmonary emphysema, unspecified emphysema type (CMS/HCC) (Primary Dx); Prostatism; Pulmonary nodules; Thyroid nodule Social History Tobacco Use Types Packs/Day Years [...] on file documented as of this encounter Last Filed Vital Signs Vital Sign Reading [...] Mass Index 26.26 11/14/2024 11:29 AM EST documented in this encounter Progress Notes * Paulina Dietz MD - 11/14/2024 11:00 AM EST CHIEF COMPLAINT: follow up and medication review IDENTIFIER: Cesar Dexter is a 59 y.o. old male. HPI: Pt presents for evaluation of multiple medical problems. A month ago, patient was evaluated at [facility] for URI symptoms. Sure enough patient symptom gradually resolves, and he has been compliant with his Advair. Evaluation at that time however included CT scan which revealed a 1.36 cm right lower lobe groundglass containing an approximately 0.8 cm more solid-appearing component. Patient has not seen his brake rider Dr. Bailey for sometime. Patient never seriously smoke, there is no constitutional symptoms. He has been very careful regarding celiac disease/dietary restriction, no GI symptoms. While reviewing patient's CT report, there is also mentioning a roughly 2.5 cm right lower pole thyroid nodule. Patient denied any neck pain, difficulty swallowing. Patient followed with my colleaguewith yearly physical examination. He is taking his medications as instructed. ROS: GENERAL: Negative for malaise, significant weight loss and fever RESPIRATORY: No cough, wheezing or shortness of breath CARDIOVASCULAR: Negative for chest pain, leg swelling and palpitations GI: Negative for abdominal discomfort, changes in bowel habits, blood in stool or black stools HEMATOLOGY/LYMPHOLOGY: No prolonged bleeding, easy bruising, or swollen lymph nodes ENDOCRINE: Negative for cold or heat intolerance, polyuria, polydipsia and goiter NEURO: No persistent headache, fainting, seizures, strokes, TIAs, weakness, numbness or tingling PAST MEDICAL HISTORY: Patient Active Problem List Diagnosis Date Noted Thyroid nodule 11/14/2024 Pulmonary nodules 11/14/2024 Asthma 03/09/2018 Allergic rhinitis 09/02/2017 Chronic obstructive pulmonary disease (CMS/HCC) 09/02/2017 Prostatism 01/19/2017 Meniscus, medial, derangement 12/31/2010 Celiac sprue 08/20/2010 IBS (irritable bowel syndrome) 08/20/2010 SOCIAL HISTORY: Social History Tobacco Use Smoking status: Never Smokeless tobacco: Never Substance Use Topics Alcohol use: No FAMILY HISTORY: Family Status Relation Name Status Mother Father Brother (Not Specified) Brother of melanoma- 60's Brother Alive Sister Alive No partnership data on file Family History Problem Relation Name Age of Onset Other (Other: AVR age 62) Mother Stroke Father age 78, from brain tumor Other (Other: melanoma) Brother from melanoma at age 62 ACTIVE MEDICATIONS: Outpatient Medications Marked as Taking for the 11/14/24 encounter (Office Visit) with Paulina Dietz MD Medication Sig Dispense Refill albuterol HFA (PROAIR HFA ; PROVENTIL HFA ; VENTOLIN HFA) 90 mcg/actuation inhaler Inhale 2 puffs by mouth every 6 (six) hours if needed for wheezing or shortness of breath. 8.5 g 2 fluticasone propion-salmeteroL (ADVAIR DISKUS) 500-50 mcg/dose diskus inhaler Inhale 1 puff by mouth. tamsulosin (FLOMAX) 0.4 mg 24 hr capsule Take 2 capsules (0.8 mg total) by mouth. ALLERGIES: Penicillin g potassium PHYSICAL EXAM: Blood pressure 104/60, pulse 82, temperature 36.1 ??C (96.9 ??F), temperature source Temporal, resp. rate 16, height 1.778 m (70 ), weight 83 kg (183 lb). Body mass index is 26.26 kg/m??. BMI is 18.5to 24.9 (within the normal range) and will be followed APPEARANCE: Alert and in no acute distress NECK: Neck supple, no adenopathy, thyroid symmetric and of normal size HEART: Normal S1-S2, no obvious nodule or mass palpable in the neck LUNG: clear to auscultation bilaterally ABDOMEN: Bowel sounds normoactive, no bruits and soft, non-tender, without organomegaly or palpablemasses EXTREMITIES: Extremities warm and well perfused without clubbing, cyanosis, or edema NEURO: Awake, alert and oriented x 3 and reflexes symmetrical SKIN: Skin color, texture, turgor normal. No rashes or lesions. LABS: BP Readings from Last 5 Encounters: 11/14/24 104/60 03/31/24 110/60 09/29/23 104/62 06/18/23 122/70 09/17/22 120/72 Wt Readings from Last 5 Encounters: 11/14/24 83 kg (183 lb) 03/31/24 82.4 kg (181 lb 9.6 oz) 09/29/23 80.3 kg (177 lb) 06/18/23 81.6 kg (180 lb) 09/17/22 81.3 kg (179 lb 3.2 oz) IMPRESSION: 1. Pulmonary emphysema, unspecified emphysema type (CMS/HCC) 2. Prostatism 3. Pulmonary nodules 4. Thyroid nodule PLAN: Pt presents for evaluation of multiple medical problems. A month ago, patient was evaluated at [facility] for URI symptoms. Sure enough patient symptom gradually resolves, and he has been compliant with his Advair. Evaluation at that time however included CT scan which revealed a 1.36 cm right lower lobe groundglass containing an approximately 0.8 cm more solid-appearing component. Patient has not seen his brake rider Dr. Bailey for sometime. Patient never seriously smoke, there is no constitutional symptoms. He has been very careful regarding celiac disease/dietary restriction, no GI symptoms. While reviewing patient's CT report, there is also mentioning a roughly 2.5 cm right lower pole thyroid nodule. Patient denied any neck pain, difficulty swallowing. Patient followed with my colleaguewith yearly physical examination. He is taking his medications as instructed. 1 lung nodule, under the setting of COPD, without active smoking. Given the size, and the never report with solid component, I decided to refer patient to pulmonology. 2 COPD,/asthma, I reviewed evaluation during recent ER visit, appears to be primarily a URI. Discussed InContext of the findings on CT scan We will continue Advair discus. 3 BPH, I answered patient many questions. I will continue Flomax, I will check a repeat PSA we discussed limitation of PSA testing 4 discussed the patient's other overall stable medical condition, celiac disease, irritable bowel syndrome overall stable. Weight stable. Patient has complete physical examination already scheduled later this year. Orders Placed This Encounter Procedures US Head Neck Soft Tissue Prostate specific antigen screen Thyroid stimulating hormone with reflex to free t4 and free t3 Ambulatory referral to Pulmonology ADDITIONAL ORDERS: AMB REFERRAL TO PULMONOLOGY US HEAD NECK SOFT TISSUE Paulina Dietz MD on 11/14/2024 at 12:26 PM EST documented in this encounter Plan of Treatment Upcoming Encounters Date Type Department Care Team (Late st Contact Info) Description 09/25/2025 2:00 PM EST Office Visit Adult Medicine [facility] [address] [place] [phone] Paulina Dietz MD [address] [place] [address] Scheduled Orders Name Type Priority Associated Diagnoses Orde r Schedule Prostate specific antigen screen Lab Routine Prostatism 1 Occurrences starting 11/14/2024 until 11/14/2025 US Head Neck Soft Tissue Imaging Routine Thyroid nodule Expected: 11/14/2024, Expires: 11/14/2025 Thyroid stimulating hormone with reflex to free t4 and free t3 Lab Routine Thyroid nodule 1 Occurrences starting 11/14/2024 until 11/14/2025 Scheduled Referrals Name Type Priority Associated Diagnoses Order Schedule Ambulatory referral to Pulmonology Outpatient Referral Routine Pulmonary nodules 1 Occurrences starting 11/14/2024 until 11/14/2025 documented as of this encounter Visit Diagnoses Diagnosis Pulmonary emphysema, unspecified emphysema type (CMS/HCC)- Primary Prostatism Unspecified hyperplasia of prostate without urinary obstruction and other lower urinary tract symptoms (LUTS) Pulmonary nodules Other diseases of lung, not elsewhere classified Thyroid nodule Nontoxic uninodular goiter documented in this encounter Care Teams Pathology Specialist Relationship Specialty Start Date End Date Paulina Dietz MD [address] [place] [phone] PCP - General 03/12/04 documented as of this encounter
== END 2024-12-14 09:45 | disposition home or self-care (01) ==
PROVIDERS: PCP Internal Medicine; Visit Provider Internal Medicine Pulmonary Disease
DX: R91.1 Solitary pulmonary nodule (principal); J45.50 Severe persistent asthma, uncomplicated; Z91.09 Other allergy status, other than to drugs and biological substances
CPT/HCPCS: 99214

== ENCOUNTER → 2024-12-14 09:18 | Outpatient (BNVA) | payer OTHER, SELFPAY | PROVIDERS: PCP Internal Medicine; Visit Provider Internal Medicine Pulmonary Disease ==

== ENCOUNTER 2025-01-05 10:38 | Outpatient (REF) | payer OTHER, SELFPAY ==
--- OUTSIDE RECORDS SUMMARY | 2025-01-05 13:29 | XMS_ITS | Clinical Summary ---
Author Organization [facility] [address] [place] [address] [place] [phone] Phone Care Team Providers Care Pulverizer Tender Name Role Phone Paulina Dietz MD Primary Care Provider [phone] Allergies Active Allergy Reactions Criticality Noted Date [...] a day. 1 each 2 5 Active Active Problems Problem Noted Date Diagnosed Date Thyroid nodule 11/14/2024 Overview (11/14/2024): initial discovery 09/2024, [facility], CT for URI Pulmonary nodules 11/14/2024 Overview (11/14/2024): 1.36cm, at [facility] Asthma 03/09/2018 Allergic rhinitis 09/02/2017 Chronic obstructive pulmonary disease 09/02/2017 Prostatism 01/19/2017 Meniscus, medial, derangement 12/31/2010 Celiac sprue 08/20/2010 Overview (09/02/2024): Duodenal bx and TTG negative Aug, 2014. IBS (irritable bowel syndrome) 08/20/2010 Encounters Date Type Department Care Team Description 12/22/2024 Telephone Adult Medicine [address] [phone] Priya Zavala MA Study Results (Ultrasound results) 11/16/2024 Telephone Adult Medicine [address] [phone] Paulina Dietz MD ULTRASOUND ORDER 11/14/2024 11:00 AM EST Office Visit Adult [address] [phone] Paulina Dietz MD Pulmonary emphysema, unspecified emphysema [...] Date Site/Laterality Comments OTHER SURGICAL HISTORY PROCEDURE: [place] ARTHRS KNEE W/MENISCECTOMY MED&LAT W/SHAVING; COMMENT: Dr. Cruz, 08/27/06, L knee ESOPHAGOGASTRODUODENOSCOPY 2013 PROCEDURE: MO EGD TRANSORAL BIOPSY SINGLE/MULTIPLE; COMMENT: visually normal; duodenal bx: normal. COLONOSCOPY 2013 PROCEDURE: MO COLONOSCOPY FLX DX W/COLLJ SPEC WHEN PFRMD; [...] 2:00 PM EST Office Visit Adult [facility] [place] [address] [place] [address] Paulina Dietz MD [address] [place] [address] Health Maintenance Due Date Last Done Comments [...] Influencers of Health Screening 10/04/2022 COVID-19 Vaccine ( - season) 2024 11/19/2020, 10/31/2020 DTaP,Tdap,and Td Vaccines [...] patient's age to complete this topic Insurance [facility] [employer] Care Teams Pulverizer Tender Relationship Specialty Start Date End Date Paulina Dietz MD [address] [place] [address] PCP - General 03/12/04
--- OUTSIDE RECORDS SUMMARY | 2025-01-05 13:29 | XMS_ITS | Encounter Summary ---
[facility] Address [address] [place] [address] Care Team Providers Care Rate And Cost Analyst Name Role Phone Paulina Dietz MD Primary Care Provider [phone] Reason for Visit * Reason Onset Date Comments Study Results 12/22/2024 Ultrasound resul ts Encounter Details Date Type Department Care Team ([facility] st Contact Info) Description 12/22/2024 Telephone Adult Medicine [address] [phone] Priya Zavala [place] Study Results (Ultrasound results) Social History Tobacco Use Types Packs/Day Years [...] as of this encounter Progress Notes * Minerva Miller RN - 12/22/2024 3:23 PM EST Pt had ultrasound of head neck done at [facility] 11/17 ( scanned ) he is asking aboiut biopsy Please advise * Priya Zavala MA - 12/22/2024 1:35 PM EST Pt would like results of U/S of neck. He states he saw report and radiologist recommends a bx. documented in this encounter Plan of Treatment Upcoming Encounters Date Type Department Care Team (Late st Contact Info) Description 09/25/2025 2:00 PM EST Office Visit Adult Medicine [facility] [address] [place] [address] Paulina Dietz MD [address] [place] [address] documented as of this encounter Visit Diagnoses Not on filedocumented in this encounter Care Teams Rate And Cost Analyst Relationship Specialty Start Date End Date Paulina Dietz MD [address] [place] [address] PCP - General 03/12/04 documented as of this encounter
== END 2025-01-05 10:39 | disposition home or self-care (01) ==
LOC: HO.HOSX 10:38
PROVIDERS: Visit Provider Physician Assistant
DX: M17.0 Bilateral primary osteoarthritis of knee (principal)
CPT/HCPCS: 20610; J1010; J2003

== ENCOUNTER 2025-01-05 10:56 | Outpatient (AMB) | payer OTHER, SELFPAY ==
--- NOTE | 2025-01-05 11:17 | A.OFFVIS_ITS ---
Intake Visit Reasons: INJ Bilateral knee injections Intake Note: Cesar is a 59 year old female who presents today for bilateral knee injectiion. Allergies gluten Allergy (Intermediate, Verified 12/14/24 09:36) Gastrointestinal Upset-celiac disease Penicillins [PCN] Allergy (Intermediate, Verified 12/14/24 09:36) HIVES HPI HPI INJ Bilateral knee injections: Details: 59-year-old gentleman presents to the office today for ongoing bilateral knee pain. He continues to have discomfort with daily activities such as prolonged standing and walking and stair climbing. He has had a history of injections with good relief. [facility] Medical History BPH (benign prostatic hyperplasia) Celiac disease Post-dural puncture headache Left shoulder pain Foraminal stenosis of cervical region Cervical spondylosis with radiculopathy Bilateral primary osteoarthritis of knee Asthma Sinusitis Environmental allergies Surgical History Hx of colonoscopy History of esophagogastroduodenoscopy (EGD) Hx of fusion of cervical spine (~03/2022) H/O left knee surgery H/O right knee surgery Social History Are you a primary post acute care nurse to a significant other at home: No Do you presently have visiting nurse or other home services: No Alcohol intake: current Alcohol intake frequency: does not drink Patient Tobacco Use Status: Never used Tobacco Current occupational status: employed 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 No erythema or joint effusion. Tenderness along the medial joint line. Full ROM with crepitus. Calf supple non tender. Right knee skin intact. Surgical scares present. Lateral retropatellar tenderness. Full ROM. Calf supple non tender. Office Procedures AMB Joint Injection/Aspiration Joint Injection/Aspiration Primary Site: right knee Secondary Site: left knee Prep: site was prepped using aseptic technique, ethochloride spray was applied and injection warnings given Injected: 80 mg of, DepoMedrol, with 8 mL of, 1% plain lidocaine and in the joint Approach Used: anterolateral Procedure: The patient tolerated the procedure well and there was some relief with the local anesthesia Coding - Glenohumeral/Tronchanteric Bursa/Intraarticular Procedure code (CPT) selection complete Assessment & Plan Assessment & Plan (1) Osteoarthritis of knees, bilateral: Code(s): M17.0 - Bilateral primary osteoarthritis of knee Category: Medical Plan: We discussed options today, which include steroid injection. The patient did consent to move forward with the injection, which was tolerated well.? I recommended rest, ice and elevation and OTC antiinflammatories prn for discomfort. If symptoms persist over the next 6-8 weeks, they will contact our office, otherwise, prn Orders: Orders XR knee RT 3V Today M17.11 - Unilateral primary osteoarthritis, right knee XR knee LT 3V Today M25.562 - Pain in left knee Coding Level of Care Code Est Pt Level 3 (09441) Complex EM visit Add On G2211 Diagnoses Osteoarthritis of knees, bilateral M17.0 CPT Codes Coding - Joint 7: 67246 - Glenohumeral/Tronchanteric Bursa/Intraarticular ([id number])
--- OUTSIDE RECORDS SUMMARY | 2025-01-05 14:02 | XMS_ITS | Clinical Summary ---
Author Organization [facility] [address] [place] [address] [place] [phone] Phone Care Team Providers Care Diazo Technician Name Role Phone Paulina Dietz MD Primary Care Provider [phone] Allergies Active Allergy Reactions Criticality Noted Date [...] nodule 11/14/2024 Overview (11/14/2024): initial discovery 09/2024, [facility], CT for URI Pulmonary nodules 11/14/2024 Overview (11/14/2024): 1.36cm, at [facility] Asthma 03/09/2018 Allergic rhinitis 09/02/2017 Chronic obstructive pulmonary disease 09/02/2017 Prostatism 01/19/2017 Meniscus, medial, derangement 12/31/2010 Celiac sprue 08/20/2010 Overview (09/02/2024): Duodenal bx and TTG negative Aug, 2014. IBS (irritable bowel syndrome) 08/20/2010 Encounters Date Type Department Care Team Description 12/22/2024 Telephone Adult Medicine [address] [phone] Priya Zavala [place] Study Results (Ultrasound results) 11/16/2024 Telephone Adult Medicine [address] [phone] Paulina Dietz MD ULTRASOUND ORDER 11/14/2024 11:00 AM EST Office Visit Adult [address] [phone] Paulina Dietz MD Pulmonary emphysema, unspecified emphysema [...] Date Site/Laterality Comments OTHER SURGICAL HISTORY PROCEDURE: [place] ARTHRS KNEE W/MENISCECTOMY MED&LAT W/SHAVING; COMMENT: Dr. Cruz, 08/27/06, L knee ESOPHAGOGASTRODUODENOSCOPY 2013 PROCEDURE: SC EGD TRANSORAL BIOPSY SINGLE/MULTIPLE; COMMENT: visually normal; duodenal bx: normal. COLONOSCOPY 2013 PROCEDURE: [place] COLONOSCOPY FLX DX W/COLLJ SPEC WHEN PFRMD; [...] EST Office Visit Adult [facility] [place] [address] [place] [address] Paulina Dietz MD [address] [place] [address] Health Maintenance Due Date Last Done Comments [...] patient's age to complete this topic Insurance [facility] Care Teams Diazo Technician Relationship Specialty Start Date End Date Paulina Dietz MD [address] [place] [address] PCP - General 03/12/04
--- OUTSIDE RECORDS SUMMARY | 2025-01-05 14:02 | XMS_ITS | Encounter Summary ---
Author Organization [facility] Address [address] [place] [address] Care Team Providers Care Community Service Representative Name Role Phone Paulina Dietz MD Primary Care Provider [phone] Reason for Visit * Reason Onset Date Comments Study Results 12/22/2024 Ultrasound resul ts Encounter Details Date Type Department Care Team ([facility] st Contact Info) Description 12/22/2024 Telephone Adult Medicine [address] [phone] Priya Zavala [place] Study Results (Ultrasound results) [...] had ultrasound of head neck done at [facility] 11/17 ( scanned ) he is asking [...] 2:00 PM EST Office Visit Adult Medicine [facility] [address] [place] [address] Paulina Dietz MD [address] [place] [address] documented as of this encounter Visit Diagnoses Not on filedocumented in this encounter Care Teams Community Service Representative Relationship Specialty Start Date End Date Paulina Dietz MD [address] [place] [address] PCP - General 03/12/04 documented as of this encounter
== END 2025-01-05 11:20 | disposition home or self-care (01) ==
LOC: HO.HOS 10:57
PROVIDERS: PCP Internal Medicine; Visit Provider Physician Assistant
DX: M17.0 Bilateral primary osteoarthritis of knee (principal)
CPT/HCPCS: 20610; 99213

== ENCOUNTER 2025-01-18 07:33 | Outpatient (REF) | payer OTHER, SELFPAY ==
--- NOTE | ~2025-01-18 | CT_ITS ---
EXAMINATION: CT CHEST WITHOUT CONTRAST CLINICAL INFORMATION: Solitary pulmonary nodule. COMPARISON: October 10, 2024. TECHNIQUE: Multidetector volumetric CT imaging of the chest was done. Axial MIP volume rendering provided. Sagittal and coronal reformatted images were obtained. This CT examination was performed using dose optimization techniques as appropriate, variously including the following: *Automated exposure control *Adjustment of mA and/or kV according to patient size (this includes techniques or standardized protocols for targeted exams where dose is matched to indication/reason for exam; i.e. extremities or head) *Use of iterative reconstruction technique. DLP: 168 mGy centimeter. FINDINGS: [employer]: No hyperinflation. Upper extremities at both sites of the head. LUNGS: There is a 15 mm irregular groundglass pulmonary nodule in the periphery of the right lower lung lobe. Linear attenuation abnormality seen in the lung bases, bilaterally. No bronchiectasis. No honeycombing. Respiratory where is patent. No hyperinflation. No volume loss. There is a 1 mm calcified pulmonary nodule, left lung base.. MEDIASTINUM: No lymphadenopathy, mediastinum. No aneurysm, thoracic aorta. No pericardial effusion. Heart is not enlarged. CORONARY ARTERY CALCIFICATION: No. PLEURA: No pleural effusion. No pneumothorax. AXILLA: No lymphadenopathy. UPPER ABDOMEN: Abundant stool, splenic colonic flexure. OSSEOUS STRUCTURES: Multilevel spondylosis more conspicuous from T4 T7 and T10-11. Superior endplate compression deformity representing 30% volume loss at T6 and T7 likely old. 30 mm low-density nodule right thyroid lobe. Mild prominent breast tissue. CT/CT chest wo IV con IMPRESSION: 15 mm groundglass pulmonary nodule, right lower lung lobe. Overall stable. Differential diagnostic considerations include inflammatory versus infectious versus neoplasm. Consider PET/CT. Dominant nodule, right thyroid lobe.. Fleischner guidelines were followed. Electronically signed by: Marcel Gross MD 01/18/2025 08:40 AM EDT
--- OUTSIDE RECORDS SUMMARY | 2025-01-18 07:36 | XMS_ITS | Encounter Summary ---
[facility] Organization [facility] Address [address] [place] [address] Care Team Providers Care Echocardiographer Name Role Phone Paulina Dietz MD Primary Care Provider [phone] Reason for Visit * Reason Onset Date Comments Study Results 12/22/2024 Ultrasound resul ts Encounter Details Date Type Department Care Team ([facility] st Contact Info) Description 12/22/2024 Telephone Adult Medicine [address] [phone] Priya Zavala [place] Study Results (Ultrasound results) [...] had ultrasound of head neck done at [facility] 11/17 ( scanned ) he is asking [...] Visit Adult Medicine [facility] [address] [place] [address] Paulina Dietz MD [address] [place] [address] documented as of this encounter Visit Diagnoses Not on filedocumented in this encounter Care Teams Echocardiographer Relationship Specialty Start Date End Date Paulina Dietz MD [address] [place] [address] PCP - General 03/12/04 documented as of this encounter
--- OUTSIDE RECORDS SUMMARY | 2025-01-18 07:36 | XMS_ITS | Clinical Summary ---
Author Organization [facility] [address] [place] [address] [place] [phone] Phone Care Team Providers Care Drop Press Hand Name Role Phone Paulina Dietz MD Primary Care Provider [phone] Allergies Active Allergy Reactions Criticality Noted Date [...] nodule 11/14/2024 Overview (11/14/2024): initial discovery 09/2024, [facility], CT for URI Pulmonary nodules 11/14/2024 Overview (11/14/2024): 1.36cm, at [facility] Asthma 03/09/2018 Allergic rhinitis 09/02/2017 Chronic obstructive pulmonary disease 09/02/2017 Prostatism 01/19/2017 Meniscus, medial, derangement 12/31/2010 Celiac sprue 08/20/2010 Overview (09/02/2024): Duodenal bx and TTG negative Aug, 2014. IBS (irritable bowel syndrome) 08/20/2010 Encounters Date Type Department Care Team Description 12/22/2024 Telephone Adult Medicine [address] [phone] Priya Zavala [place] Study Results (Ultrasound results) 11/16/2024 Telephone Adult Medicine [address] [phone] Paulina Dietz MD ULTRASOUND ORDER 11/14/2024 11:00 AM EST Office Visit Adult [address] [phone] Paulina Dietz MD Pulmonary emphysema, unspecified emphysema [...] Date Site/Laterality Comments OTHER SURGICAL HISTORY PROCEDURE: [place] ARTHRS KNEE W/MENISCECTOMY MED&LAT W/SHAVING; COMMENT: Dr. Cruz, 08/27/06, L knee ESOPHAGOGASTRODUODENOSCOPY 2013 PROCEDURE: SD EGD TRANSORAL BIOPSY SINGLE/MULTIPLE; COMMENT: visually normal; duodenal bx: normal. COLONOSCOPY 2013 PROCEDURE: SD COLONOSCOPY FLX DX W/COLLJ SPEC WHEN PFRMD; [...] EST Office Visit Adult [facility] [place] [address] [place] [address] Paulina Dietz MD [address] [place] [address] Health Maintenance Due Date Last Done Comments [...] patient's age to complete this topic Insurance [facility] ADMINISTRATORS [place] [address] Care Teams Drop Press Hand Relationship Specialty Start Date End Date Paulina Dietz MD [address] [place] [address] PCP - General 03/12/04
== END 2025-01-18 07:34 | disposition home or self-care (01) ==
LOC: HO.CT 07:33
PROVIDERS: PCP Internal Medicine; Visit Provider Internal Medicine Pulmonary Disease
DX: R91.1 Solitary pulmonary nodule (principal); J45.50 Severe persistent asthma, uncomplicated; Z91.09 Other allergy status, other than to drugs and biological substances
CPT/HCPCS: 71250

== ENCOUNTER → 2025-01-18 07:36 | Outpatient (BNV) | payer OTHER, SELFPAY | PROVIDERS: PCP Internal Medicine; Visit Provider Radiology Diagnostic Radiology | DX: R91.1 Solitary pulmonary nodule (principal) | CPT/HCPCS: 71250 ==

== ENCOUNTER 2025-01-18 09:44 | Outpatient (AMB) | payer OTHER, SELFPAY ==
[2025-01-18 09:48] VITALS: BP 114/64; PULSE 95; O2SAT 95; BMI 25.4
--- NOTE | 2025-01-18 09:48 | MHC.OFFVIS ---
Vital Signs 01/18/25 09:48 Height 5 ft 11 in Weight 181 lb 14.102 oz BMI 25.4 BP 114/64 Blood Pressure Location Rt brachial Position Sitting Pulse 95 Pulse Source Doppler Pulse Oximetry (%) 95 Oxygen Delivery Method Room Air Intake Visit Reasons: Asthma/CT Follow Up Allergies gluten Allergy (Intermediate, Verified 12/14/24 09:36) Gastrointestinal Upset-celiac disease Penicillins [PCN] Allergy (Intermediate, Verified 12/14/24 09:36) HIVES HPI HPI Asthma/CT Follow Up: Details: 59-year-old gentleman, lifetime nonsmoker, followed for underlying severe persistent allergic asthma. He continues on Fasenra and Advair 500 with good symptomatic control of his asthma. He rarely uses albuterol MDI. He denies recent exacerbations. He had 3 months follow-up CT chest for his new right ground-glass nodule that shows stable nodule. [facility] Medical History BPH (benign prostatic hyperplasia) Celiac disease Post-dural puncture headache Left shoulder pain Foraminal stenosis of cervical region Cervical spondylosis with radiculopathy Bilateral primary osteoarthritis of knee Asthma Sinusitis Environmental allergies Surgical History Hx of colonoscopy History of esophagogastroduodenoscopy (EGD) Hx of fusion of cervical spine (~03/2022) H/O left knee surgery H/O right knee surgery Social History Are you a primary body care manager to a significant other at home: No Do you presently have visiting nurse or other home services: No Alcohol intake: current Alcohol intake frequency: does not drink Patient Tobacco Use Status: Never used Tobacco Current occupational status: employed Current occupation: [employer] Const Denies daytime sleepiness, Denies excessive sweating, Denies fatigue, Denies fever(s), Denies lethargy, Denies malaise, Denies night sweats, Denies snoring and Denies weight loss Eyes Denies blurry vision and Denies itchy eyes ENT Denies nasal congestion, Denies post nasal drip, Denies sinus pain, Denies sinus pressure and Denies other ( Thrush) Card Denies chest pain, Denies pedal edema, Denies dyspnea, Denies orthopnea and Denies paroxysmal nocturnal dyspnea Resp Denies cough, Denies hemoptysis, Denies excessive phlegm production, Denies dyspnea, Denies snoring and Denies wheezing GI Denies abdominal pain and Denies heartburn Musc Denies myalgias, Denies arthralgias and Denies joint swelling Skin/Breast Denies rash Neuro Denies memory loss and Denies seizure-like activity Psych Denies abnormal sleep pattern, Denies anxiety and Denies memory loss Endo Denies excessive sweating, Denies fatigue and Denies heat intolerance Maicol/Lymph Denies easy bruising Aller/Immun Denies itchy eyes, Denies seasonal rhinorrhea and Denies wheezing Physical Exam Vital Signs: Last Vital Signs Pulse 95 01/18/25 09:48 BP 114/64 01/18/25 09:48 Pulse Ox 95 01/18/25 09:48 Oxygen Delivery Method Room Air 01/18/25 09:48 BMI result Body Mass Index 25.4 Const General: no acute distress and alert Nutritional Appearance: not obese Orientation/consciousness: Other orientation findings ( oriented) HEENT Head: Yes atraumatic Eyes General: appearance normal, both eyes and all related structures Sclerae: sclerae normal EOM: EOMs intact bilaterally Neck Neck: Yes supple Lymphatic: no lymphadenopathy noted Resp Effort & Inspection: normal respiratory effort and no use of accessory muscles Auscultation: clear to auscultation bilaterally Cardio Rate: regular rate Rhythm: regular rhythm Heart sounds: no gallops, no murmurs and no rubs Skin General skin exam: other ( warm) Extrem General: No clubbing, No cyanosis and No edema Assessment & Plan Assessment & Plan (1) Severe persistent asthma: Code(s): J45.50 - Severe persistent asthma, uncomplicated Category: Medical Plan: Well controlled on Fasenra, Advair, and albuterol MDI. Continue current regimen. (2) Pulmonary nodule/lesion, solitary: Code(s): R91.1 - Solitary pulmonary nodule Category: Medical Plan: Results of 3 months follow-up CT chest reviewed, stable right-sided pulmonary nodule. Will repeat CT chest in 6 months. (3) Environmental allergies: Code(s): Z91.09 - Other allergy status, other than to drugs and biological substances Category: Medical Plan: Well controlled on Fasenra. Continue current regimen. Coding Level of Care Code Est Pt Level 4 (68967) Complex EM visit Add On G2211 Diagnoses Severe persistent asthma J45.50 Pulmonary nodule/lesion, solitary R91.1 Environmental allergies Z91.09
--- OUTSIDE RECORDS SUMMARY | 2025-01-18 10:55 | XMS_ITS | Encounter Summary ---
Author Organization [facility] Address [address] [place] [address] Care Team Providers Care Jacquard Card Cutter Name Role Phone Paulina Dietz MD Primary Care Provider Reason for Visit * Reason Onset Date Comments Study Results 12/22/2024 Ultrasound resul ts Encounter Details Date Type Department Care Team ([facility] st Contact Info) Description 12/22/2024 Telephone Adult Medicine [address] [phone] Priya Zavala [place] Study Results (Ultrasound results) [...] had ultrasound of head neck done at [facility] 11/17 ( scanned ) [...] [facility] [address] [place] [address] Paulina Dietz MD [address] [place] [address] documented as of this encounter Visit Diagnoses Not on filedocumented in this encounter Care Teams Jacquard Card Cutter Relationship Specialty Start Date End Date Paulina Dietz MD [address] [place] [address] PCP - General 03/12/04 documented as of this encounter
--- OUTSIDE RECORDS SUMMARY | 2025-01-18 10:55 | XMS_ITS | Clinical Summary ---
Author Organization [facility] [address] [place] [address] [place] [phone] Phone Care Team Providers Care Battery Charger Name Role Phone Paulina Dietz MD Primary Care Provider [phone] Allergies Active Allergy Reactions Criticality Noted Date [...] nodule 11/14/2024 Overview (11/14/2024): initial discovery 09/2024, [facility], CT for URI Pulmonary nodules 11/14/2024 Overview (11/14/2024): 1.36cm, at [facility] Asthma 03/09/2018 Allergic rhinitis 09/02/2017 Chronic obstructive pulmonary disease 09/02/2017 Prostatism 01/19/2017 Meniscus, medial, derangement 12/31/2010 Celiac sprue 08/20/2010 Overview (09/02/2024): Duodenal bx and TTG negative Aug, 2014. IBS (irritable bowel syndrome) 08/20/2010 Encounters Date Type Department Care Team Description 12/22/2024 Telephone Adult Medicine [address] [phone] Priya Zavala [place] Study Results (Ultrasound results) 11/16/2024 Telephone Adult Medicine [address] [phone] Paulina Dietz MD ULTRASOUND ORDER 11/14/2024 11:00 AM EST Office Visit Adult [address] [phone] Paulina Dietz MD Pulmonary emphysema, unspecified emphysema [...] EST Office Visit [facility] [place] [address] [place] [address] Paulina Dietz MD [address] [place] [address] Health Maintenance Due Date Last Done Comments [...] patient's age to complete this topic Insurance [facility] [employer] [facility] Care Teams Battery Charger Relationship Specialty Start Date End Date Paulina Dietz MD [address] [place] [address] PCP - General 03/12/04
== END 2025-01-18 10:06 | disposition home or self-care (01) ==
LOC: HO.HPS 09:44
PROVIDERS: PCP Internal Medicine; Visit Provider Internal Medicine Pulmonary Disease
DX: J45.50 Severe persistent asthma, uncomplicated (principal); R91.1 Solitary pulmonary nodule; Z91.09 Other allergy status, other than to drugs and biological substances
CPT/HCPCS: 99214

== ENCOUNTER 2025-03-01 13:03 | Outpatient (AMB) | payer OTHER, SELFPAY ==
--- NOTE | 2025-03-01 13:06 | A.OFFPC_ITS ---
Vital Signs 03/01/25 13:14 Height 5 ft 11 in Weight 175 lb BMI 24.4 BP 114/70 Blood Pressure Location Lt brachial Position Sitting Pulse 74 Pulse Source Pulse Oximeter Temp 97.1 F Temp Source Temporal Artery Scan Pulse Oximetry (%) 95 Oxygen Delivery Method Room Air Intake Visit Reasons: patient needs an appt in order to get a referral Intake Note: Patient is a new patient establishing care for a thyroid condition. Transferring care from Dr. Dietz at [facility]. Medical records were requested today. Patient [place] [facility] [place] [facility], where a thyroid ultrasound showed a nodule in the lower pole of the right lobe; biopsy was recommended. Parts Interpreter Required: No Accompanied by: Self / Same As Patient Allergies gluten Allergy (Intermediate, Verified 03/01/25 13:24) Gastrointestinal Upset-celiac disease Penicillins [PCN] Allergy (Intermediate, Verified 03/01/25 13:24) HIVES Medication List - Last Reconciled 03/01/25 by García Devi PA-C albuterol sulfate 90 mcg/actuation 2 puffs inhalation Q4-6H PRN benralizumab (Fasenra) 30 mg subcut Q8W dexamethasone 4 mg PO TID 6 days fluticasone propion-salmeterol 500-50 mcg/dose 1 inh inhalation BID ibuprofen 800 mg PO TID tamsulosin 0.8 mg (2 x 0.4 mg) PO DAILY 90 days Tobacco use date assessed: 03/01/25 Dental Screening Dental Screen Date: 03/01/25 Did you have a dental visit in the last 12 months?: Yes Did you have a dental problem in the last 6 months where you did not have access to dental care?: No Was dental information given to patient?: Patient has dentist HPI patient needs an appt in order to get a referral HPI Details Patient is a 60-year-old male here today for a transfer of care visit. [facility] PCP with [facility]. Patient has a past medical history significant for asthma, allergies, cervical disc disease, and osteoarthritis of the knees.. Patient was seen in the ER in September 2024 and was noted to have a thyroid nodule also noted to have a pulmonary nodule to which is followed by his server developer for surveillance of his pulmonary nodule .. Thyroid nodule: Had a thyroid ultrasound in October of 2024 which did show a right-sided thyroid nodule amenable to biopsy. Will send for ultrasound thyroid biopsy and refer to endocrinology for evaluation. Otherwise denies any difficulty with swallowing or change in voice. .. Asthma: Has been well controlled on his maintenance inhaler and p.r.n. use of his albuterol inhaler. He does use Fasenra every weeks which has helped him significantly with his asthma. .. [facility] Medical History (Updated 03/01/25 @ 13:38 by García Devi PA-C) History of herniated intervertebral disc BPH (benign prostatic hyperplasia) Celiac disease Post-dural puncture headache Left shoulder pain Foraminal stenosis of cervical region Cervical spondylosis with radiculopathy Bilateral primary osteoarthritis of knee Asthma Sinusitis Environmental allergies Surgical History Hx of colonoscopy History of esophagogastroduodenoscopy (EGD) Hx of fusion of cervical spine (~03/2022) H/O left knee surgery H/O right knee surgery Social History Housing: House Are you a primary child care worker to a significant other at home: No Do you presently have visiting nurse or other home services: No Alcohol intake: current Alcohol intake frequency: does not drink Patient Tobacco Use Status: Never used Tobacco e-Cigarette/Vaping Use: Never Used service: No Current occupational status: employed 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 1. Little interest or pleasure in doing things: not at all 2. Feeling down, depressed, or hopeless: not at all 3. Trouble falling or staying asleep, or sleeping too much: several days 4. Feeling tired or having little energy: several days 5. Poor appetite or overeating: not at all 6. Feeling bad about yourself - or that you are a failure or have let yourself or your family down: not at all 7. Trouble concentrating on things, such as reading the newspaper or watching television: several days 8. Moving or speaking so slowly that other people could have noticed. Or the opposite - being so fidgety or restless that you have been moving around a lot more than usual: not at all 9. Thoughts that you would be better off or of hurting yourself in some way: not at all Total score: 3 64406 - PHQ-9 Billing: Yes Source: Developed by Drs. Chris Limon, Aysha Weinstein, Jose J Rob and colleagues, with an educational ayesha from [employer]. Thrive Questionnaire Date Thrive assessed: 03/01/25 I am a: Patient What is your living situation today?: I have a steady place to live Within the past 12 months, did the food you bought not last and you didn't have the money to get more?: Never true Within the past 12 months, did you worry whether your food would run out before you got money to buy more?: Never true Do you have trouble paying for medicines?: No Do you have trouble getting transportation to medical appointments?: No Do you have trouble paying your heating and electricity bill?: I choose not to answer this question Do you have trouble taking care of your child, family member or friend?: No Do you have trouble with day-to-day activities such as bathing, preparing meals, shopping, managing finances, etc.?: No Are you currently unemployed and looking for a job?: No Are you interested in more education?: Yes Please select the resources that you would like help with: None Currently or been in a relationship where the following occur: No concerns reported THRIVE Score: 0 AUDIT C Alcohol Use Questionnaire (AUDIT-C) 1. How often do you have a drink containing alcohol?: 2-4 times a month 2. How many drinks containing alcohol do you have on a typical day when you are drinking?: 1 or 2 3. How often do you have six or more drinks on one occasion?: Never Total Score: 2 TRACY-7 AMB Questionnaire TRACY-7 Date TRACY - 7 assessed: 03/01/25 Feeling nervous, anxious, or on edge: 1 = Several days Not being able to stop or control worryin = Several days Worrying too much about different things: 1 = Several days Trouble relaxin = Several days Being so restless that it is hard to sit still: 1 = Several days Becoming easily annoyed or irritable: 1 = Several days Feeling afraid as if something awful might happen: 0 = Not at all Total TRACY-7 score (0-4 normal; 5-9 mild; 10-14 moderate; 15-21 severe): 6 Source: Developed by Drs. Chris Limon, Aysha Weinstein, Jose J Rob and colleagues, with an educational ayesha from [employer]. TRACY-7 Assessment Billing TRACY-7 Assessment Tool: TRACY-7 Assessment 04627 ACT Questionnaire In the past 4 weeks, how much of the time did your asthma keep you from getting as much done at work, school or at home?: None of the time During the past 4 weeks, how often have you had shortness of breath?: Not at all During the past 4 weeks, how often did your asthma symptoms wake you up at night or earlier than usual in the morning?: Not at all During the past 4 weeks, how often have you had to use your rescue inhaler or nebulizer medication?: Not at all How would you rate your asthma control during the past 4 weeks?: Completely controlled ACT Interpretation: Negative Score: 25 Review of Systems Const Denies headache(s) Eyes Denies loss of vision ENT Denies vertigo, Denies dizziness, Denies headache(s) and Denies sore throat Card Denies chest pain, Denies leg edema and Denies lightheadedness Resp Denies cough, Denies hemoptysis and Denies wheezing GI Denies abdominal pain, Denies melena, Denies constipation, Denies diarrhea and Denies vomiting Denies dysuria, Denies urinary frequency and Denies urinary urgency Musc Denies arthralgias, Denies joint swelling, Denies numbness and Denies tingling Neuro Denies Abnormal speech present, Denies behavioral changes, Denies vertigo, Denies dizziness, Denies headache(s), Denies loss of vision, Denies memory loss, Denies numbness and Denies tingling Psych Denies anxiety, Denies behavioral changes, Denies depression, Denies memory loss and Denies panic attacks Maicol/Lymph Denies easy bleeding and Denies easy bruising Aller/Immun Denies wheezing Physical exam (Primary Care) Vital Signs: Last Vital Signs Temp 97.1 F 03/01/25 13:14 Pulse 74 03/01/25 13:14 BP 114/70 03/01/25 13:14 Pulse Ox 95 03/01/25 13:14 Oxygen Delivery Method Room Air 03/01/25 13:14 BMI result Body Mass Index 24.4 Tobacco/Smoking Status: Tobacco use Status Tobacco use date assessed 03/01/25 03/01/25 13:16 Patient Tobacco Use Status Never used Tobacco 03/01/25 13:06 e-Cigarette/Vaping Use Never Used 03/01/25 13:16 PHQ-9: PHQ-9 Score PHQ-9: Total score 3 03/01/25 13:16 Thrive Assessment: Date of Thrive Assessment Date Thrive assessed 03/01/25 03/01/25 13:16 Currently or been in a relationship where the following occur: No concerns reported Const General: healthy appearing, no acute distress, alert and awake Nutritional Appearance: well nourished Orientation/consciousness: oriented to person, oriented to place and oriented to time HENMT Ears: TM's normal bilaterally General nose exam: Normal nasal mucous membranes and turbinates present Eyes Conjunctivae: conjunctivae normal Sclerae: sclerae normal Pupils: Equal, round and reactive pupils present Neck Neck: Yes no lymphadenopathy and Yes no JVD Thyroid: Thyroid normal Carotids: no bruits Resp Effort & Inspection: normal respiratory effort and not tachypneic Auscultation: no crackles, no rales, no rhonchi and no wheezes Cardio Rate: regular rate Rhythm: regular rhythm Heart sounds: no murmurs and normal S1 and S2 GI Palpation (GI): Soft to palpation, nontender, no hepatomegaly and no splenomegaly Auscultation: normal bowel sounds Skin General skin exam: no rashes or lesions noted and dry skin Neuro General: oriented to person, oriented to place and oriented to time Cranial nerves: Yes Equal, round and reactive pupils present Speech: No Abnormal speech present Gait exam (Neuro): Normal gait present Motor exam (neuro): no tremor noted Extrem Right upper extremity: full ROM Left upper extremity: full ROM Right lower extremity: full ROM; no edema Left lower extremity: full ROM; no edema Psych Mental Status: mental status grossly normal Speech and movement: Normal speech and movement present Affect: normal affect Attitude: cooperative Thought process: Normal thought process present Coding Level of Care Code New Pt Level 4 (22774) Diagnoses Thyroid nodule E04.1 Mild persistent asthma, unspecified whether complicated J45.30 Asthma severity: mild Asthma persistence: persistent Asthma complication type: unspecified Screening for diabetes mellitus (DM) Z13.1 Pulmonary nodule/lesion, solitary R91.1 Additional Codes TRACY-7 Assessment Billing - TRACY-7 Assessment Tool: TRACY-7 Assessment 58261 ([id number]) PHQ-9 - 55619 - PHQ-9 Billing: Yes ([id number]) Asthma Control Questionnaire - ACT Interpretation: Negative ([id number]) Assessment & Plan Assessment & Plan (1) Thyroid nodule: Code(s): E04.1 - Nontoxic single thyroid nodule Category: Medical Plan: Initiate thyroid biopsy for further evaluation of thyroid nodules, particularly on the right side. Endocrinology consult with Dr. Sexton has been arranged to manage this concern. (2) Asthma: Comment: follows [place] [place]-stable Code(s): J45.909 - Unspecified asthma, uncomplicated Category: Medical Qualifiers: Asthma severity: mild Asthma persistence: persistent Asthma complication type: unspecified Qualified Code(s): J45.30 - Mild persistent asthma, uncomplicated Plan: Patient reports his asthma is fairly well controlled with current management. Not had any asthma exacerbations or nighttime awakenings with asthma symptoms. (3) Screening for diabetes mellitus (DM): Code(s): Z13.1 - Encounter for screening for diabetes mellitus Category: Medical Plan: As per HPI (4) Pulmonary nodule/lesion, solitary: Code(s): R91.1 - Solitary pulmonary nodule Category: Medical Plan: Followed by [facility] pulmonology, Continue with planned CT imaging in June to monitor the status of the ground-glass lung nodule. Orders: Orders US biopsy thyroid Today E04.1 - Nontoxic single thyroid nodule Comprehensive [place]. Panel Fast Today Z13.1 - Encounter for screening for diabetes mellitus Complete Blood Count no Diff Today Z13.1 - Encounter for screening for diabetes mellitus Prostate Specific Antigen Scr Today Z12.5 - Encounter for screening for malignant neoplasm of prostate, Z13.1 - Encounter for screening for diabetes mellitus Referrals Endocrinology Referral E04.1 - Nontoxic single thyroid nodule Medications: Refilled albuterol sulfate 90 mcg/actuation 2 puffs inhalation Q4-6H PRN 6.7 grams 6RF shortness of breath or wheezing fluticasone propion-salmeterol 500-50 mcg/dose 1 inh inhalation BID 60 ea 2RF J45.909 - Unspecified asthma, uncomplicated
[2025-03-01 13:14] VITALS: BP 114/70; PULSE 74; TEMP 36.2; O2SAT 95; BMI 24.4
--- OUTSIDE RECORDS SUMMARY | 2025-03-01 14:16 | XMS_ITS | Clinical Summary ---
Author Organization [facility] [address] [place] [address] [place] [phone] Phone Care Team Providers Care Biomedical Engineering Supervisor Name Role Phone Paulina Dietz MD Primary Care Provider [phone] Allergies Active Allergy Reactions Criticality Noted Date [...] nodule 11/14/2024 Overview (11/14/2024): initial discovery 09/2024, [facility], CT for URI Pulmonary nodules 11/14/2024 Overview (01/30/2025): 1.36cm, at [facility] , following with Dr. Richey, pulmonology Asthma 03/09/2018 Allergic rhinitis 09/02/2017 Chronic obstructive pulmonar y disease ([facility] V24, [facility] V28) 09/02/2017 Prostatism 01/19/2017 Meniscus, medial, derangement 12/31/2010 Celiac sprue 08/20/2010 Overview (09/02/2024): Duodenal bx and TTG negative Aug, 2014. IBS (irritable bowel syndrome) 08/20/2010 Encounters Date Type Department Care Team Description 12/22/2024 Telephone Adult Medicine [address] [id number] Priya Zavala [place] Study Results (Ultrasound results) from Last 3 Months Immunizations Name Administration [...] Date Site/Laterality Comments OTHER SURGICAL HISTORY PROCEDURE: OR ARTHRS KNEE W/MENISCECTOMY MED&LAT W/SHAVING; COMMENT: Dr. Cruz, 08/27/06, L knee ESOPHAGOGASTRODUODENOSCOPY 2013 PROCEDURE: OR EGD TRANSORAL BIOPSY SINGLE/MULTIPLE; COMMENT: visually normal; duodenal bx: normal. COLONOSCOPY 2013 PROCEDURE: OR COLONOSCOPY FLX DX W/COLLJ SPEC WHEN PFRMD; COMMENT: normal Medical History Medical History Date Comments Allergic rhinitis 09/02/2017 DX:Allergic rh initis Celiac sprue 08/20/2010 DX:Celiac sprue; COMMENT: Duodenal bx and TTG negative Aug, 2014. Chronic obstructive pulmonar y disease ([facility] V24, [facility] V28) 09/02/2017 DX:Chronic obstructive pulm onary disease (HCC) IBS (irritable bowel syndrome) 08/20/2010 [...] 2:00 PM EST Office Visit Adult Medicine [facility] [address] [place] [address] Paulina Dietz MD [address] [place] [address] Health Maintenance Due Date Last Done Comments [...] Health Screening 10/04/2022 COVID-19 Vaccine (3 - season) 2024 11/19/2020, 10/31/2020 DTaP,Tdap,and Td Vaccines (4 - Td or Tdap) 01/23/2034 01/24/2024, 01/09/2021, 10/30/2008 RSV Immunization Adult Patients (1 - 1-dose 75+ series) 02/25/2040 Influenza [...] age to complete this topic Meningococcal B Vaccine Aged Out No l onger eligible based on patient's age to complete this topic RSV Immunization Patients Under 20 months Aged Out No longer eligible based on patient's age to complete this topic Varicella Vaccines Aged Out No longer eligible based on patient's age to complete this topic Procedures Procedure Name Priority Date/Time Associated Diagnosis Comments EXTERNAL CT REPORT 01/18/[address] REPORT 01/18/2025 from Last 3 Months Results * External CT Report (01/18/2025) Only the most recent of2 resultswithin the time period is included. Anatomical Region Laterality Modality Computed Tomogra phy us Provider [facility] CT PROCEDURES Final Result from Last 3 Months Insurance [email or web address] [facility] Care Teams Biomedical Engineering Supervisor Relationship Specialty Start Date End Date Paulina Dietz MD [address] [place] [phone] PCP - General 03/12/04
== END 2025-03-01 13:39 | disposition home or self-care (01) ==
PROVIDERS: PCP Physician Assistant; Visit Provider Physician Assistant
DX: E04.1 Nontoxic single thyroid nodule (principal); J45.30 Mild persistent asthma, uncomplicated; Z13.1 Encounter for screening for diabetes mellitus; R91.1 Solitary pulmonary nodule

== ENCOUNTER → 2025-03-01 13:03 | Outpatient (BNVA) | payer OTHER, SELFPAY | PROVIDERS: PCP Internal Medicine; Visit Provider Physician Assistant | DX: E04.1 Nontoxic single thyroid nodule (principal); J45.30 Mild persistent asthma, uncomplicated; R91.1 Solitary pulmonary nodule | CPT/HCPCS: 96127; 96160 ==

== ENCOUNTER 2025-03-16 10:25 | Outpatient (REF) | payer OTHER, SELFPAY ==
--- NOTE | ~2025-03-16 | US_ITS ---
ULTRASOUND-GUIDED THYROID NODULE FINE NEEDLE ASPIRATION INDICATION: Right lower lobe thyroid nodule, suspicious TR category 4. PROCEDURE: Informed consent was obtained from the patient prior to the procedure. During this process, the procedure and potential alternatives were explained, along with the intended outcome and benefits. The risks of the procedure, as well as the risks of not doing the procedure, were discussed. The patient was given the opportunity to ask questions regarding the procedure and appeared competent to make medical decisions. A signed consent form which documents this discussion was placed in the medical record. A timeout was performed in the room. The patient was placed in a supine position with the neck extended. The right side of the neck and chest was prepped and draped in routine sterile fashion. 1% lidocaine was used as anesthetic. Under real-time ultrasound guidance, a 25-gauge needle was placed into the nodule and aspiration was performed. A total of 4 aspirations were performed. The specimens were placed in CytoLyt and and the Affirma bottle. Postprocedure images showed no hematoma. A Band-Aid was applied to the access site. The patient tolerated the procedure well with no immediate complications. Permanent ultrasound images were archived to the procedure. US/US biopsy thyroid IMPRESSION: 1. Right lower pole thyroid nodule fine-needle aspiration without complication. Electronically signed by: Diogo Kidd MD 03/16/2025 12:18 PM EDT
--- OUTSIDE RECORDS SUMMARY | 2025-03-16 10:57 | XMS_ITS | Clinical Summary ---
Author Organization [facility] [address] [place] [address] [place] [phone] Phone Care Team Providers Care Yard Loader Operator Name Role Phone Paulina Dietz MD Primary Care Provider [phone] Allergies Active Allergy Reactions Criticality Noted Date [...] nodule 11/14/2024 Overview (11/14/2024): initial discovery 09/2024, [facility], CT for URI Pulmonary nodules 11/14/2024 Overview (01/30/2025): 1.36cm, at [facility] , following with Dr. Richey, pulmonology Asthma 03/09/2018 Allergic rhinitis 09/02/2017 Chronic obstructive pulmonar y disease ([facility] V24, [facility] V28) 09/02/2017 Prostatism 01/19/2017 Meniscus, medial, derangement 12/31/2010 Celiac sprue 08/20/2010 Overview (09/02/2024): Duodenal bx and TTG negative Aug, 2014. IBS (irritable bowel syndrome) 08/20/2010 Encounters Date Type Department Care Team Description 12/22/2024 Telephone Adult Medicine [address] [id number] Priya Zavala [place] Study Results (Ultrasound results) from Last 3 [...] Date Site/Laterality Comments OTHER SURGICAL HISTORY PROCEDURE: ME ARTHRS KNEE W/MENISCECTOMY MED&LAT W/SHAVING; COMMENT: Dr. Cruz, 08/27/06, L knee ESOPHAGOGASTRODUODENOSCOPY 2013 PROCEDURE: ME EGD TRANSORAL BIOPSY SINGLE/MULTIPLE; COMMENT: visually normal; duodenal bx: normal. COLONOSCOPY 2013 PROCEDURE: ME COLONOSCOPY FLX DX W/COLLJ SPEC WHEN PFRMD; COMMENT: normal Medical History Medical History Date Comments Allergic rhinitis 09/02/2017 DX:Allergic rh initis Celiac sprue 08/20/2010 DX:Celiac sprue; COMMENT: Duodenal bx and TTG negative Aug, 2014. Chronic obstructive pulmonar y disease ([facility] V24, [facility] V28) 09/02/2017 DX:Chronic obstructive pulm onary [...] 2:00 PM EST Office Visit Adult Medicine [address] [phone] Paulina Dietz MD [address] [place] [address] Health Maintenance Due Date Last Done Comments Pneumococcal Vaccine: 50+ Years (1 of 2 [...] (3 - 2023- season) 2024 11/19/2020, 10/31/2020 RSV Immunization Adult Patients (1 - Risk 60-74 years 1-dose series) 2025 DTaP,Tdap,and Td Vaccines (4 - Td or Tdap) 01/23/2034 01/24/2024, 01/09/2021, 10/30/2008 Influenza Vaccine Completed 08/04/2024, , 09/16/2021, Additional history exists HIB Vaccines Aged Out No longer eligi ble based on patient's age to complete this topic HPV Vaccines Aged Out No longer eligi ble based on patient's age to complete this topic Hepatitis A Vaccines Aged Out No long er eligible based on patient's age to complete this topic Hepatitis B Vaccines Aged Out No long er eligible [...] Final Result from Last 3 Months Insurance [employer] [facility] Care Teams Yard Loader Operator Relationship Specialty Start Date End Date Paulina Dietz MD [address] [place] [phone] PCP - General 03/12/04
[2025-03-16] MEDS: Lidocaine HCl 1 % MPF 5 ML VIAL SUBCUT (11:20)
== END 2025-03-16 10:26 | disposition home or self-care (01) ==
LOC: HO.US 10:25
PROVIDERS: PCP Physician Assistant; Visit Provider Physician Assistant
DX: E04.1 Nontoxic single thyroid nodule (principal)
CPT/HCPCS: 10005; 88173; 88305; J2003

== ENCOUNTER → 2025-03-16 10:27 | Outpatient (BNV) | payer OTHER, SELFPAY | PROVIDERS: PCP Physician Assistant; Visit Provider Radiology Diagnostic Radiology | DX: E04.1 Nontoxic single thyroid nodule (principal) | CPT/HCPCS: 10005 ==

== ENCOUNTER 2025-04-25 12:40 | Outpatient (REF) | payer OTHER, SELFPAY | END 2025-04-25 12:41 | disposition home or self-care (01) | LOC: HO.LAB 12:40 | PROVIDERS: PCP Physician Assistant; Visit Provider Student in an Organized Health Care Education/Training Program | DX: E04.2 Nontoxic multinodular goiter (principal) | CPT/HCPCS: 36415; 84443 ==

== ENCOUNTER 2025-04-25 12:40 | Outpatient (AMB) | payer OTHER, SELFPAY ==
[2025-04-25 12:43] VITALS: BP 106/64; PULSE 73; O2SAT 94; BMI 25.6
--- NOTE | 2025-04-25 12:43 | A.OFFVIS_ITS ---
Vital Signs 04/25/25 12:43 Height 5 ft 11 in Weight 183 lb 13.848 oz BMI 25.6 BP 106/64 Blood Pressure Location Lt brachial Position Sitting Pulse 73 Pulse Source Pulse Oximeter Pulse Oximetry (%) 94 Oxygen Delivery Method Room Air Intake Visit Reasons: Nontoxic single thyroid nodule Intake Note: New patient present today for Nontoxic single thyroid nodule. Clinical Lab Scientist Required: No Accompanied by: Self / Same As Patient Allergies gluten Allergy (Intermediate, Verified 04/25/25 12:48) Gastrointestinal Upset-celiac disease Penicillins (PCN) Allergy (Intermediate, Verified 04/25/25 12:48) HIVES Medication List - Last Reconciled 04/25/25 by Joan Sexton MD albuterol sulfate 90 mcg/actuation 2 puffs inhalation Q4-6H PRN benralizumab (Fasenra) 30 mg subcut Q8W fluticasone propion-salmeterol 500-50 mcg/dose 1 inh inhalation BID ibuprofen 800 mg PO TID tamsulosin 0.8 mg (2 x 0.4 mg) PO DAILY 90 days HPI Comments Details: 60-year-old male here today for initial evaluation of nontoxic multinodular goiter. No prior thyroid disease. CT chest 10/10/2024 Pointed a 2.5 cm right lower pole thyroid nodule. Ultrasound thyroid 11/17/2024, I reviewed the images myself which showed a right lower pole 2.9 cm solid isoechoic nodule with lobulated margin, TR 4 category. This met criteria for FNA. A left midpole 1.1 cm mixed cystic solid ill- defined, isoechoic, TR 2 category nodule. 03/16/2025: FNA biopsy of the right lower pole 2.9 cm nodule with benign cytology, Ashford category 2. Patient currently denies heat or cold intolerance, diarrhea or constipation, hair loss, palpitation, anxiety, weight changes, mood changes, low energy, changes in appearance of eyes or vision changes, tremors, increased diaphoresis or dry skin. ? Patient denies any difficulty swallowing, pain on swallowing or voice changes or difficulty breathing. Patient denies any history of childhood neck radiation. Denies having ever used lithium, amiodarone or biotin supplements. Patient denies any family history of thyroid cancer or thyroid disease. no current smoking Physical exam General: sitting comfortably in no acute distress HEENT: normocephalic/atraumatic, Neck: supple, right 1 cm nodule Cardiac: normal heart sounds Pulm: normal breath sounds B/L, no added breath sounds Abd: not distended, no tenderness Extremities: no edema, no signs of myxedema Thyroid ultrasound. 11/17/24 No comparison. Findings: Right lobe 6.6 x 3.6 x 2.6 cm. Left lobe 5.1 x 1.6 x 1.9 cm. Isthmus 5 mm in thickness. The thyroid parenchyma is relatively homogeneous. There are multiple small cysts and cystic/solid nodules bilaterally without follow-up recommendations. Right lobe lower pole 2.9 x 2.3 x 2.9 cm nodule. Solid, predominantly isoechoic, lobulated margin, wider than tall, no echogenic foci. TI-RADS category 4. Recommend biopsy if not performed previously. Left lobe midportion 1.1 x 0.7 x 1 cm nodule. Cystic and solid, isoechoic, ill-defined margin, wider than tall, no echogenic foci. TI-RADS category 2. No followup recommendations. No other nodules with follow-up recommendations are seen. Impression: Nodule right lobe lower pole recommend biopsy if not performed previously. Other findings as above. TI-RADS Categories TR1 and TR2 nodules do not have followup recommendations TR3 (FNA >= 2.5cm, F/U >= 1.5 cm at one, 3 and 5 years) TR4 (FNA >= 1.5cm, F/U >= 1cm at 1, 2, 3, and 5 years) TR5 (FNA >= 1cm, F/U >=0.5 cm yearly for 5 years) This document has been electronically signed by: Gerardo Blair MD on 11/17/2024 18:10:08 CT CHEST WITH CONTRAST 10/10/24 CLINICAL INFORMATION: Abnormal findings on chest x-ray obtained earlier the same day. COMPARISON: No prior chest CT. Chest x-ray from earlier the same day. Chest x-ray from May 07, 2023. TECHNIQUE: Multidetector volumetric CT imaging of the chest was obtained after the administration of 65 mL of Omnipaque 350 intravenous contrast without immediate adverse reactions. Axial MIP volume rendering provided. Sagittal and coronal reformatted images were obtained. This CT examination was performed using dose optimization techniques as appropriate, variously including the following: *Automated exposure control *Adjustment of mA and/or kV according to patient size (this includes techniques or standardized protocols for targeted exams where dose is matched to indication/reason for exam; i.e. extremities or head) *Use of iterative reconstruction technique DLP: 295 mGy-cm FINDINGS: LUNGS: 1.36 cm right lower lobe groundglass right lower lobe nodule containing an approximately 0.8 cm, more solid-appearing component (image 270, series 5). Bibasilar linear densities suggesting fibrotic streaks and/atelectasis. MEDIASTINUM: Roughly 2.5 cm right lower pole thyroid nodule. PLEURA: There is no pleural effusion. No pleural mass or thickening. AXILLA: No lymphadenopathy by size criteria. UPPER ABDOMEN: Unremarkable OSSEOUS STRUCTURES: Decreased bone mineral density. Mild compression deformities of T6 and T7, unchanged compared with May 07, 2023. CT/CT chest w IV con IMPRESSION: 1.36 cm right lower lobe groundglass right lower lobe nodule containing an approximately 0.8 cm, more solid-appearing component. Follow-up chest CT in 3-6 months is recommended, per Fleischner Society guidelines. Roughly 2.5 cm right lower pole thyroid nodule. Recommend dedicated thyroid ultrasound examination performed on a nonemergent basis. Additional findings as above. Electronically signed by: Man Goodwin MD 10/10/2024 03:27 PM [facility] Medical History (Updated 04/25/25 @ 13:09 by Jona Sexton MD) Multinodular goiter History of herniated intervertebral disc BPH (benign prostatic hyperplasia) Celiac disease Post-dural puncture headache Left shoulder pain Foraminal stenosis of cervical region Cervical spondylosis with radiculopathy Bilateral primary osteoarthritis of knee Asthma Sinusitis Environmental allergies Surgical History Hx of colonoscopy History of esophagogastroduodenoscopy (EGD) Hx of fusion of cervical spine (~03/2022) H/O left knee surgery H/O right knee surgery Social History Housing: House Are you a primary healthcare or medical to a significant other at home: No Do you presently have visiting nurse or other home services: No Alcohol intake: current Alcohol intake frequency: does not drink Patient Tobacco Use Status: Never used Tobacco e-Cigarette/Vaping Use: Never Used service: No Current occupational status: employed 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 He had a CT chest 10/10/2024 which Pointed a 2.5 cm right lower pole thyroid nodule. Ultrasound thyroid 11/17/2024, I reviewed the images myself which showed a right lower pole 2.9 cm solid isoechoic nodule with lobulated margin, TR 4 category. This met criteria for FNA. A left midpole 1.1 cm mixed cystic solid ill- defined, isoechoic, TR 2 category nodule. 03/16/2025: FNA biopsy of the right lower pole 2.9 cm nodule with benign cytology, Ash[place] category 2. At this point given benign cytology, this yields a less than 3% chance of malignancy. Given size and features of the nodule we will plan to follow up with ultrasound in about 1 year. All patients with thyroid nodules also need thyroid function to be done annually. Patient has not had any TFTs done. Plan: -ordered TSH with reflex free T4 to be done now , we will reach out with the results -ordered ultrasound of the thyroid to be done in December 2025 with follow up in January 2026 -we will also need blood work orders prior to follow up in January 2026 Plan I spent 45 minutes in reviewing the record, seeing the patient and documenting in the medical record. Orders: Orders TSH reflex Free T4 Today E04.2 - Nontoxic multinodular goiter US thyroid 01/02/26 E04.2 - Nontoxic multinodular goiter Patient Instructions: Do blood work today, we will reach out with results Do ultrasound of the thyroid in December 2025, someone will call you to schedule this. Please make sure it is done a few weeks prior to your follow up in January 2026, where we will discuss results You will also need to do blood work a few days prior to that follow up , orders will be placed Coding Level of Care Code New Pt Level 4 (48599) Diagnoses Multinodular goiter E04.2 Time Spent (min) 45
--- OUTSIDE RECORDS SUMMARY | 2025-04-25 13:31 | XMS_ITS | Clinical Summary ---
Author Organization [facility] [address] [place] [address] [place] [phone] Phone Care Team Providers Care Supervisor Ride Assembly Name Role Phone Paulina Dietz MD Primary Care Provider [phone] Allergies Active Allergy Reactions Criticality Noted Date [...] nodule 11/14/2024 Overview (11/14/2024): initial discovery 09/2024, [facility], CT for URI Pulmonary nodules 11/14/2024 Overview (01/30/2025): 1.36cm, at [facility] , following with Dr. Richey, pulmonology Asthma 03/09/2018 Allergic rhinitis 09/02/2017 Chronic obstructive pulmonar y disease ([facility] V24, [facility] V28) 09/02/2017 Prostatism 01/19/2017 Meniscus, medial, derangement 12/31/2010 Celiac sprue 08/20/2010 Overview (09/02/2024): Duodenal bx and TTG negative Aug, 2014. IBS (irritable bowel syndrome) 08/20/2010 Immunizations Name Administration Dates Next Due H1N1 [...] Aug, 2014. Chronic obstructive pulmonar y disease ([facility] V24, [facility] V28) 09/02/2017 DX:Chronic obstructive pulm onary disease [...] 82 11/14/2024 11:29 AM EST Temperature 36.1 C (96.9 F) 11/14/2024 11:29 AM EST Respiratory Rate 16 11/14/2024 11:29 AM EST [...] 2:00 PM EST Office Visit Adult Medicine [facility] [address] [place] [phone] Paulina Dietz MD [address] [place] [address] Health Maintenance Due Date Last Done Comments [...] of Health Screening 10/04/2022 COVID-19 Vaccine ( season) 2024 11/19/2020, 10/31/2020 RSV Immunization Adult [...] patient's age to complete this topic Insurance [employer] [facility] Care Teams Supervisor Ride Assembly Relationship Specialty Start Date End Date Paulina Dietz MD [address] [place] [address] PCP - General 03/12/04
== END 2025-04-25 13:15 | disposition home or self-care (01) ==
LOC: HO.ENCR 12:41
PROVIDERS: PCP Physician Assistant; Visit Provider Student in an Organized Health Care Education/Training Program
DX: E04.2 Nontoxic multinodular goiter (principal)
CPT/HCPCS: 99204

== ENCOUNTER 2025-05-08 10:02 | Outpatient (REF) | payer OTHER, SELFPAY ==
--- NOTE | ~2025-05-08 | XR_ITS ---
EXAMINATION: XR KNEE, LEFT CLINICAL INFORMATION: M25.562 - Pain in left knee COMPARISON: July 17, 2021 TECHNIQUE: AP in standing position both knees. Lateral and sunrise views of the left knee. FINDINGS: Joint space narrowing with associated sclerosis along the articular surface involving the medial compartments both knees pronounced on the left knee. Small marginal osteophyte formation lateral femoral condyle, left knee. No suprapatellar bursa joint effusion. Joint space narrowing involving the patellofemoral joint, left knee. No acute cortical disruption or malalignment, left knee. No lytic or blastic lesions. XR/XR knee LT 3V IMPRESSION: Tricompartmental atherosclerosis involving mostly the medial compartment, left knee. Slight worsening since prior exam. Electronically signed by: Marcel Gross MD 05/08/2025 01:14 PM EDT
--- OUTSIDE RECORDS SUMMARY | 2025-05-08 10:41 | XMS_ITS | Clinical Summary ---
Author Organization [facility] [address] [place] [address] [place] [phone] Phone Care Team Providers Care Brush Hand Name Role Phone Paulina Dietz MD Primary Care Provider [phone] Allergies Active Allergy Reactions Criticality Noted Date [...] nodule 11/14/2024 Overview (11/14/2024): initial discovery 09/2024, [facility], CT for URI Pulmonary nodules 11/14/2024 Overview (01/30/2025): 1.36cm, at [facility] , following with Dr. Richey, pulmonology Asthma 03/09/2018 Allergic rhinitis 09/02/2017 Chronic obstructive pulmonar y disease ([facility] V24, [facility] V28) 09/02/2017 Prostatism 01/19/2017 Meniscus, medial, derangement [...] Date Site/Laterality Comments OTHER SURGICAL HISTORY PROCEDURE: [place] ARTHRS KNEE W/MENISCECTOMY MED&LAT W/SHAVING; COMMENT: Dr. Cruz, 08/27/06, L knee ESOPHAGOGASTRODUODENOSCOPY 2013 PROCEDURE: [place] EGD TRANSORAL BIOPSY SINGLE/MULTIPLE; COMMENT: visually normal; duodenal bx: normal. COLONOSCOPY 2013 PROCEDURE: [place] COLONOSCOPY FLX DX W/COLLJ SPEC WHEN PFRMD; COMMENT: normal Medical History Medical History Date Comments Allergic rhinitis 09/02/2017 DX:Allergic rh initis Celiac sprue 08/20/2010 DX:Celiac sprue; COMMENT: Duodenal bx and TTG negative Aug, 2014. Chronic obstructive pulmonar y disease ([facility] V24, [facility] V28) 09/02/2017 DX:Chronic obstructive pulm onary disease [...] 2:00 PM EST Office Visit Adult Medicine [facility] [address] [place] [phone] Paulina Dietz MD [address] [place] [address] Health Maintenance Due Date Last Done Comments Pneumococcal Vaccine: 50+ Years (1 of 2 - PCV) 02/25/1984 Zoster Vaccines (1 of 2) 2015 Cholesterol Screening (Lipid Panel) 10/04/2022 Colorectal Cancer Screening: Colonoscopy 10/04/2022 Depression Screening 10/04/2022 HIV Screening 10/04/2022 Hepatitis C Screening 10/04/2022 Social Influencers of Health Screening 10/04/2022 COVID-19 Vaccine (3 - season) 2024 11/19/2020, 10/31/2020 RSV Immunization Adult Patients (1 - Risk 60-74 years 1-dose series) 2025 Influenza Vaccine (#1) 2025 , 09/25/2022, 09/16/2021, Additional history exists DTaP,Tdap,and Td Vaccines (4 - Td or Tdap) 01/23/2034 01/24/2024, 01/09/2021, 10/30/2008 HIB Vaccines Aged Out No longer eligi [...] patient's age to complete this topic Insurance [employer] [facility] Care Teams Brush Hand Relationship Specialty Start Date End Date Paulina Dietz MD [address] [place] [address] PCP - General 03/12/04
== END 2025-05-08 10:03 | disposition home or self-care (01) ==
LOC: HO.HOSX 10:02
PROVIDERS: Visit Provider Physician Assistant
DX: M23.92 Unspecified internal derangement of left knee (principal); M17.12 Unilateral primary osteoarthritis, left knee; M25.562 Pain in left knee; Z79.899 Other long term (current) drug therapy
CPT/HCPCS: 73562

== ENCOUNTER 2025-05-08 11:24 | Outpatient (AMB) | payer OTHER, SELFPAY ==
--- NOTE | 2025-05-08 11:36 | A.OFFVIS_ITS ---
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 Patient reports that he tripped and fell on his left side. His pain is located at the lateral side of his knee. He has pain with bending his knee. He also complains of an increase of pain with stair use, states pain is worse with going down stairs. Finds little relief with Aleve. 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 He states he was climbing over a gas hose and as one foot went over he caught the left leg on the hose and fell. He co lateral sided knee pain. Pain with stairs. Feels a sharp shooting pain along the lateral side of the knee. [facility] Medical History (Updated 05/08/25 @ 12:06 by Tonio Ley PA-C) Multinodular goiter History of herniated intervertebral disc BPH (benign prostatic hyperplasia) Celiac disease Post-dural puncture headache Left shoulder pain Foraminal stenosis of cervical region Cervical spondylosis with radiculopathy Bilateral primary osteoarthritis of knee Asthma Sinusitis Environmental allergies Surgical History Hx of colonoscopy History of esophagogastroduodenoscopy (EGD) Hx of fusion of cervical spine (~03/2022) H/O left knee surgery H/O right knee surgery Social History Housing: House Are you a primary healthcare administration internship to a significant other at home: No Do you presently have visiting nurse or other home services: No Alcohol intake: current Alcohol intake frequency: does not drink Patient Tobacco Use Status: Never used Tobacco e-Cigarette/Vaping Use: Never Used service: No Current occupational status: employed Current occupation: [employer] Cognitive needs: No Hearing needs: No Vision needs: No Review of Systems Const All systems reviewed & are unremarkable except as noted in HPI and below Physical Exam Vital Signs: BMI result Body Mass Index 25.5 Const General: cooperative and no acute distress Orientation/consciousness: patient oriented x3 Resp Effort & Inspection: normal respiratory effort and able to speak in complete sentences Cardio Peripheral pulses: Peripheral pulses 2+ throughout Neuro General: patient oriented x3 Extrem Other: Left knee skin intact, no erythema or joint effusion. Tenderness along the medial joint line. ROM full with crepitus. Positive steinmans. No ligamentous laxity. NVI. Results Reviewed Results Reviewed: Xrays were obtained in the office today and personally reviewed by me show medial joint collapse with varus alignment Assessment & Plan Assessment & Plan (1) Internal derangement of left knee: Code(s): M23.92 - Unspecified internal derangement of left knee Category: Medical (2) Osteoarthritis of left knee: Code(s): M17.12 - Unilateral primary osteoarthritis, left knee Category: Medical Plan We discussed options today which includes further imaging of the left knee given his mechanical symptoms and limitations with daily activities. Once the scan is complete we will review and discuss the next step in his treatment. Orders: Orders XR knee LT 3V Today M25.562 - Pain in left knee MR knee LT wo con Today M17.12 - Unilateral primary osteoarthritis, left knee Coding Level of Care Code Est Pt Level 3 (98974) Complex EM visit Add On G2211 Diagnoses Internal derangement of left knee M23.92 Osteoarthritis of left knee M17.12
[2025-05-08 11:42] VITALS: BMI 25.5
== END 2025-05-08 12:36 | disposition home or self-care (01) ==
PROVIDERS: PCP Physician Assistant; Visit Provider Physician Assistant
DX: M23.92 Unspecified internal derangement of left knee (principal); M17.12 Unilateral primary osteoarthritis, left knee
CPT/HCPCS: 99213

== ENCOUNTER → 2025-05-08 11:34 | Outpatient (BNV) | payer OTHER, SELFPAY | PROVIDERS: Visit Provider Radiology Diagnostic Radiology | DX: M17.12 Unilateral primary osteoarthritis, left knee (principal) | CPT/HCPCS: 73562 ==

== ENCOUNTER → 2025-05-22 08:06 | Outpatient (BNV) | payer OTHER, SELFPAY | PROVIDERS: Visit Provider Radiology Diagnostic Radiology | DX: M25.562 Pain in left knee (principal) | CPT/HCPCS: 73721 ==

== ENCOUNTER 2025-05-22 08:07 | Outpatient (REF) | payer OTHER, SELFPAY ==
--- NOTE | ~2025-05-22 | MR_ITS ---
EXAM: MRI LOWER EXTREMITY JOINT, KNEE, left TECHNIQUE: Multiplanar multisequence MR imaging performed through the knee without contrast. INDICATION: Left knee pain, lateral and posterior, stiffness, pain with walking downstairs, fell 2 weeks ago, remote history of the medial meniscus tear 16-17 years ago PRIOR: X-ray on 05/08/2025 FINDINGS: Menisci: Lateral Meniscus: Lateral meniscus is intact. Medial Meniscus: Medial meniscus body is mildly extruded from the joint line. The body is small and ill-defined with heterogeneous increased signal as well as linear fluid signal through the central body. The posterior horn is also ill-defined and small. ACL/PCL: ACL and PCL are intact. Extensor mechanism: There is a small volume of joint fluid. Fat pads and tendons are unremarkable. MCL/LCL: MCL is intact. LCL complex is intact. However, there is increased fluid signal in the soft tissues interposed tree and lateral femoral condyle and a band. Articular cartilage: Patellofemoral Compartment: There is heterogeneous signal in the articular cartilage of the middle third lateral facet of patella. There is a full-thickness fissure of the articular cartilage at the junction of medial and lateral facet of patella, middle third patella. There is adjacent reactive marrow signal. Lateral Compartment: Articular cartilage is intact. Medial Compartment: There is diffuse full-thickness cartilage loss along the medial joint line involving femoral condyle and tibial plateau with remodeling and reactive marrow signal changes. The joint, there is mild diffuse thinning. Bones/Marrow: There is moderate marrow edema involving the lateral aspect of the lateral femoral condyle. There are tricompartmental marginal osteophytes. Soft tissues: There is no mass, fluid collection, muscle edema, or fatty infiltration. MR/MR knee LT wo con IMPRESSION: There is moderate marrow edema involving the lateral aspect of lateral femoral condyle. This could be related to a bone bruise versus reactive marrow signal changes. Moderate to severe osteoarthritis most is advanced in the medial compartment. The body of the medial meniscus is small suggesting prior partial meniscectomy. The body and posterior horn appear degenerated, frayed, and torn. Possible IT band friction syndrome. There is edema like signal in the soft tissues interposed between IT band and lateral femoral condyle. Electronically signed by: Ryan Barrientos MD 05/22/2025 10:47 AM EDT
--- OUTSIDE RECORDS SUMMARY | 2025-05-22 08:13 | XMS_ITS | Clinical Summary ---
Author Organization [facility] [address] [place] [address] [place] [phone] Phone Care Team Providers Care Supervisor [employer]aning [employer] Name Role Phone Paulina Dietz MD Primary Care Provider [phone] Allergies Active Allergy Reactions Criticality Noted Date [...] rhinitis 09/02/2017 Chronic obstructive pulmonar y disease ([facility] V24, [facility] V28) 09/02/2017 Prostatism 01/19/2017 Meniscus, medial, derangement [...] Date Site/Laterality Comments OTHER SURGICAL HISTORY PROCEDURE: [place] ARTHRS KNEE W/MENISCECTOMY MED&LAT W/SHAVING; COMMENT: Dr. Cruz, 08/27/06, L knee ESOPHAGOGASTRODUODENOSCOPY 2013 PROCEDURE: [place] EGD TRANSORAL BIOPSY SINGLE/MULTIPLE; COMMENT: visually normal; duodenal bx: normal. COLONOSCOPY 2013 PROCEDURE: [place] COLONOSCOPY FLX DX W/COLLJ SPEC WHEN PFRMD; COMMENT: normal Medical History Medical History Date Comments Allergic rhinitis 09/02/2017 DX:Allergic rh initis Celiac sprue 08/20/2010 DX:Celiac sprue; COMMENT: Duodenal bx and TTG negative Aug, 2014. Chronic obstructive pulmonar y disease ([facility] V24, [facility] V28) 09/02/2017 DX:Chronic obstructive pulm onary disease [...] 2:00 PM EST Office Visit Adult Medicine [facility] [address] [place] [phone] Paulina Dietz MD [address] [place] [address] Health Maintenance Due Date Last Done Comments Pneumococcal Vaccine: 50+ Years (1 of 2 - PCV) 02/25/1984 Zoster Vaccines (1 of 2) 2015 Cholesterol Screening (Lipid Panel) 10/04/2022 Colorectal Cancer Screening: Colonoscopy 10/04/2022 HIV Screening 10/04/2022 Hepatitis C Screening 10/04/2022 Social Influencers of Health Screening 10/04/2022 COVID-19 Vaccine (2023- season) 2024 11/19/2020, 10/31/2020 Depression Screening 10/26/2024 RSV Immunization Adult Patients (1 - Risk [...] patient's age to complete this topic Insurance [employer] [facility] Care Teams Supervisor [employer] 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
== END 2025-05-22 08:08 | disposition home or self-care (01) ==
LOC: HO.MRI 08:07
PROVIDERS: Visit Provider Physician Assistant
DX: M17.12 Unilateral primary osteoarthritis, left knee (principal)
CPT/HCPCS: 73721

== ENCOUNTER 2025-06-22 11:37 | Outpatient (REF) | payer OTHER, SELFPAY ==
--- NOTE | ~2025-06-22 | XR_ITS ---
EXAMINATION: XR SHOULDER, LEFT CLINICAL INFORMATION: M25.512 - Pain in left shoulder COMPARISON: None available. TECHNIQUE: AP external rotation, Grashey, scapular Y, and axillary views of the left shoulder. FINDINGS: Normal bone mineralization. No fracture, dislocation, or suspicious bone lesion. Normal alignment. The glenohumeral joint is normal. The AC joint demonstrates mild to moderate spurring most significant superiorly. No significant undersurface spurring. There is a type II acromion. No undersurface spurring. The subacromial space is preserved. Remainder of the soft tissue and bony structures appear normal. XR/XR shoulder LT min 2V IMPRESSION: 1. No acute bony abnormalities of the left shoulder. 2. Moderate superior surface spurring of the AC joint. Electronically signed by: Diogo Kidd MD 06/22/2025 12:44 PM EDT
--- OUTSIDE RECORDS SUMMARY | 2025-06-22 12:51 | XMS_ITS | Clinical Summary ---
Author Organization [facility] [address] [place] [address] [place] [id number] Phone Care Team Providers Care Subway Repair Supervisor Name Role Phone Paulina Dietz MD Primary Care Provider [phone] Allergies Active Allergy Reactions Criticality Noted Date Comments Penicillin G Potassium 10/14/2006 Medications albuterol HFA (PROAIR HFA ; PROVENTIL HFA ; VENTOLIN HFA) 90 mcg/actuation inhaler Inhale 2 puffs by mouth every 6 (six) hours if needed for wheezing or shortness of breath. 8.5 g 2 5 Active fluticasone propion-salmete roL (ADVAIR DISKUS) 500-50 mcg/dose diskus inhaler Inhale 1 puff by mouth 2 (two) times a day. 1 each 2 5 Active tamsulosin (FLOMAX) 0.4 mg 24 hr capsule Take 2 capsules (0.8 mg total) by mouth. 4 06/01/20 25 Active Problems Problem Noted Date Diagnosed Date Thyroid nodule 11/14/2024 Overview (11/14/2024): initial discovery 09/2024, [facility], [place] for URI Pulmonary nodules 11/14/2024 Overview (01/30/2025): 1.36cm, at [facility] , following with Dr. Richey, pulmonology Asthma 03/09/2018 Allergic rhinitis 09/02/2017 Chronic obstructive pulmonar y disease ([facility] V24, [facility] V28) 09/02/2017 Prostatism 01/19/2017 Meniscus, medial, derangement [...] Date Site/Laterality Comments OTHER SURGICAL HISTORY PROCEDURE: [facility] ARTHRS KNEE W/MENISCECTOMY MED&LAT W/SHAVING; COMMENT: Dr. Crzu, 08/27/06, L knee ESOPHAGOGASTRODUODENOSCOPY 2013 PROCEDURE: [facility] EGD TRANSORAL BIOPSY SINGLE/MULTIPLE; COMMENT: visually normal; duodenal bx: normal. COLONOSCOPY 2013 PROCEDURE: [facility] COLONOSCOPY FLX DX W/COLLJ SPEC WHEN PFRMD; COMMENT: normal Medical History Medical History Date Comments Allergic rhinitis 09/02/2017 DX:Allergic rh initis Celiac sprue 08/20/2010 DX:Celiac sprue; COMMENT: Duodenal bx and TTG negative Aug, 2014. Chronic obstructive pulmonar y disease ([facility] V24, [facility] V28) 09/02/2017 DX:Chronic obstructive pulm onary disease [...] Adult Medicine [facility] [address] [place] [id number] Paulina Dietz MD [address] [place] [address] Health Maintenance Due Date Last Done Comments Pneumococcal Vaccine: 50+ Years (1 of 2 - PCV) 02/25/1984 Zoster Vaccines (1 of 2) 2015 Cholesterol Screening (Lipid Panel) 10/04/2022 Colorectal Cancer Screening: Colonoscopy 10/04/2022 HIV Screening 10/04/2022 Hepatitis C Screening 10/04/2022 Social Influencers of Health Screening 10/04/2022 COVID-19 Vaccine (3 2023- season) 2024 11/19/2020, 10/31/2020 Depression Screening 10/26/2024 [...] patient's age to complete this topic Insurance [employer] [facility] Care Teams Subway Repair Supervisor Relationship Specialty Start Date End Date Paulina Dietz MD [address] [place] [address] PCP - General 03/12/04
== END 2025-06-22 11:38 | disposition home or self-care (01) ==
LOC: HO.XRAY 11:37
PROVIDERS: PCP Physician Assistant; Visit Provider Nurse Practitioner Family
DX: M25.512 Pain in left shoulder (principal); M96.1 Postlaminectomy syndrome, not elsewhere classified; M47.812 Spondylosis without myelopathy or radiculopathy, cervical region; M79.18 Myalgia, other site; Z98.1 Arthrodesis status
CPT/HCPCS: 20553; 73030; 99212; J3300

== ENCOUNTER → 2025-06-22 11:41 | Outpatient (BNV) | payer OTHER, SELFPAY | PROVIDERS: PCP Physician Assistant; Visit Provider Radiology Diagnostic Radiology | DX: M25.512 Pain in left shoulder (principal) | CPT/HCPCS: 73030 ==

== ENCOUNTER 2025-06-22 13:45 | Outpatient (AMB) | payer OTHER, SELFPAY ==
--- NOTE | 2025-06-22 13:49 | MHC.OFFVIS ---
Vital Signs 06/22/25 13:52 06/22/25 14:24 Height 5 ft 11 in Weight 175 lb BMI 24.4 BP 142/61 H 146/65 H Blood Pressure Location Rt brachial Rt brachial Position Sitting Sitting Pulse 79 80 Pulse Source Pulse Oximeter Pulse Oximeter Comment bp recheck Intake Visit Reasons: LEFT SHOULDER PAIN Intake Note: Pain today 08/04 Food Safety Specialist Required: No Accompanied by: Self / Same As Patient Allergies gluten Allergy (Intermediate, Verified 06/22/25 13:53) Gastrointestinal Upset-celiac disease Penicillins (PCN) Allergy (Intermediate, Verified 06/22/25 13:53) HIVES HPI Comments Details: The patient is a 60-year-old male presenting with chronic neck pain. The neck pain began approximately three years ago following an incident that led to a neck injury. The patient underwent neck surgery, but continued to experience chronic neck pain post-operatively and limited range of motion. Over the past year, the patient has been under pain management care, which included physical therapy and trigger point injections. The injections provided good but temporary relief, and the patient is currently using muscle relaxants. Recently, the patient reported pain primarily in the left side of the neck radiating to the shoulder, although the shoulder itself is not the primary source of discomfort. An x-ray revealed moderate arthritis of the acromioclavicular joint, but the pain is localized to the neck area, on both sides, worse on the left. Patient is interested to repeat cervical trigger point injections. Denies any recent cough, cold, infection, fever or any other significant changes in medical history since last office visit. - Onset: Pain began approximately three years ago following a neck injury. - Quality: The pain is described as persistent, sharp, spasming, left worse than right side. - Radiation: Pain radiates from the neck to the left shoulder. - Exacerbating factors: Movement such as turning the neck increases pain. - Relieving factors: Trigger point injections and muscle relaxants have provided some relief. - Affect: The pain impacts the patient's daily activities, work, sleep and quality of life. - Analgesia: Current management includes muscle relaxants and trigger point injections, which have provided some relief. - Adverse Effects: No adverse effects from current pain management were discussed. - Activities of Daily Living: Pain affects the patient's ability to perform certain movements, particularly involving the neck. - Aberrant Drug Related Behaviors: No aberrant behaviors were reported. PRIOR: Patient presents to the office for evaluation of neck trigger point injection. He was initially seen in our office in 2021 for cervical spondylosis with radiculopathy. He eventually underwent C5-C6 cervical fusion by Dr. Davis at [facility] in March 2022 with good results. Today he presents with muscle spasms and tenderness in the projection of bilateral upper trapezius and rhomboids, worse on the left side. He was referred to our office [place] [facility] for potential trigger point injections. 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 He was initially on light duty and released to full duty on 03/02/24. He reports physical therapy completed for 4 weeks helped partially but continues with bilateral neck spasms and stiffness. He denies any radicular symptoms into his upper or lower extremities, denies occipital headaches, dizziness, shortness of breaths or chest pain. Neck presents with limited left lateral rotations and bending as well as bilateral upper trapezius and rhomboids tenderness with multiple taut bands, worse on the left. Denies any significant pain with cervical extension or flexion. Reports worse symptoms with pull ups, bicep curls, prolonged sitting at computer work or putting his shoes or socks on and off. Patient also tried OT therapy to adjust his work ergonomics for computer work without significant improvement. NSAIDs and muscle relaxant (cyclobenzaprine) have been partially beneficial. Patient has not tried acupuncture therapy. Denies any recent cough, cold, infection, fever or other significant changes in medical history since last office visit. Past Procedures: 01/08/22: attempted left C6-C7 epidural steroid injection-no pain relief PRIOR 01/10/22 Dr. Kramer: Jeff presents to report a headache he developed this morning. He felt fine on Thursday, and this morning. He started feeling severe frontal and temporal headache suddenly while at work, associated with dizziness. He feels unsteady when walking. Denies nausea or vomiting. Denies occipital or positional headache. Denies neck pain. PRIOR 12/30/21: Patient is a pleasant 56 years old male who presents to the office for an initial encounter with left neck pain and left shoulder pain. 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 Patient reports his neck pain radiates to his left side to left shoulder to his arm laterally and to left 4th and 5th fingers with significant numbness, tingling, and heaviness in those fingers. Patient was evaluated by a neurosurgeon Dr. Davis at [facility] last Thursday and was told he would benefit from cervical cortisone injection and no surgery at this time. Patient also completed 10 sessions of PT with minimal improvement in his symptoms. He reports cervical traction and ice massage were helpful but the effect lasted about an hour. Patient denies any fever, dizziness, headaches, weight loss, vision disturbances, dropping objects, tremors, weakness, bladder/bowel dysfunction or saddle anesthesia. The pain is worse in mid-morning and throughout the day and less severe at night time. He reports pain onset was gradual and constant with high pain intensity rated at 8-10/10 and least pain at 5/10. Patient states the pain is interfering with his sleep, activities of daily living, quality of life and that he cannot function normally. The patient reports the pain in terms of tissue damage as stabbing, lancinating, tingling, stinging, dull, sore, hurting, aching and heavy. He has been taking gabapentin and naproxen with continued symptoms. Denies any chiropractic manipulation, TENS unit or acupuncture. Denies any previous neck or shoulder injections or surgery. Rest, sitting or lying down alleviates the pain. Movements aggravate his pain. Today he rates his pain at 10/10. Patient had cervical MRI on 11/18/21 that showed advanced multifactorial degenerative changes at C3-C4 that result in severe left-sided foraminal stenosis and mild to moderate right-sided foraminal stenosis. At C5-C6, a left paracentral disc protrusion flattens left ventral cord and mildly narrows the central canal and multifactorial degenerative changes result in mild to moderate bilateral foraminal stenosis. At C6-C7, multifactorial degenerative changes result in moderate to severe left foraminal stenosis. This report with details is noted below. [facility] Medical History (Updated 06/22/25 @ 11:20 by BETTINA Leger) Left shoulder pain Multinodular goiter History of herniated intervertebral disc BPH (benign prostatic hyperplasia) Celiac disease Post-dural puncture headache Foraminal stenosis of cervical region Cervical spondylosis with radiculopathy Bilateral primary osteoarthritis of knee Asthma Sinusitis Environmental allergies Surgical History Hx of colonoscopy History of esophagogastroduodenoscopy (EGD) Hx of fusion of cervical spine (~03/2022) H/O left knee surgery H/O right knee surgery Social History Housing: House Are you a primary child caregiver to a significant other at home: No Do you presently have visiting nurse or other home services: No Alcohol intake: current Alcohol intake frequency: does not drink Patient Tobacco Use Status: Never used Tobacco e-Cigarette/Vaping Use: Never Used service: No Current occupational status: employed 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 Denies numbness or tingling or upper extremity weakness. All systems reviewed & are unremarkable except as noted in HPI and below Physical Exam Vital Signs: Last Vital Signs Pulse 79 06/22/25 13:52 BP 142/61 H 06/22/25 13:52 BMI result Body Mass Index 24.4 On exam today: Appears afebrile. Alert and oriented. Mood and affect appropriate. Follows and participates in conversation appropriately. Respiratory effort is unlabored. No cough. Able to transition from sit to stand unassisted. Ambulates with bilaterally normal heel strike and toe off. Neck Other: Patient with limited cervical ROM with left lateral rotation. Reports mild pain with cervical extension/flexion. Patient demonstrated 5/5 motor strength of bilateral upper extremities. 2 + radial pulses. Significant tightness throughout left upper trapezius as well as TTP throughout bilateral upper trapezius and rhomboid muscles. No paravertebral tenderness over facet joints bilaterally. Multiple taut bands palpated throughout bilateral upper trapezius muscles. Neck: Yes normal visual inspection, Yes no lymphadenopathy, Yes supple, No anterior neck swelling, Yes no JVD, No prominent supraclavicular fat pad and No prominent dorsocervical fat pad Resp Effort & Inspection: normal respiratory effort, able to speak in complete sentences, no cough, no respiratory distress and symmetric chest movement Back/Spine/Pelvis Cervical Spine: No Lhermitte's sign positive, cervical muscular tenderness (bilateral upper trapezius and rhomboids, worse on the left), pain with cervical ROM (left lateral rotation and bending), Cervical spine scars present, cervical spasm (left>right), No Cervical spine tenderness and No step off deformity Office Procedures Therapeutic Injection Therapeutic Injection Details: Pre-procedure diagnosis: Myofascial pain Post-procedure diagnosis: Myofascial pain Site and number of trigger points: Bilateral rhomboids and bilateral upper trapezius muscles After discussing risk, benefits, expectations and details of the procedure, patient signed the informed consent. Patient was placed in a sitting position with the neck exposed. Five to six tender points, (bilateral upper trapezius and bilateral rhomboids), were palpated, marked, and then prepped using Chloraprep swab. A 25-gauge, 1 1/2-inch needle was inserted into the area of maximal tenderness with sterile technique. In a fan-like distribution I injected 0.5-1 ml of 0.25% ropivacaine with kenalog 40 mg into each trigger point. The needle was withdrawn and bandaids were applied to injection sites. Patient tolerated the procedure well. Post-injection precautions were reviewed with the patient. The patient was discharged from the clinic . Post-procedure, breath sounds were equal at both sides of the chest. 28239-Guonxxs Point Injection 3 or more All charges added?: Procedure code (CPT) selection complete Office Meds triamcinolone acetonide 40 mg/mL suspension for injection Performing Provider: BETTINA Leger Performing Location: [facility] Administered by: BETTINA Leger on 06/22/25 14:09 Dose Route Admin Location Dispensed Lot Number Expiration Date NDC Ship Keeper 40 mg Infiltration [facility] 1 mL [id number] 05/26/27 6162-8918-[address] [facility] Total Dispensed Waste 1 mL 0 % Results Reviewed Results Reviewed: MR CERVICAL SPINE WITHOUT CONTRAST 04/28/24 CLINICAL INFORMATION: Persistent trapezius pain and decreased range of motion in the neck. COMPARISON: MRI cervical spine from 11/18/2021. TECHNIQUE: Multiplanar, multisequential imaging of the cervical spine was performed without contrast. FINDINGS: VERTEBRAL BODIES AND PARASPINAL SOFT TISSUES: The patient is status post previous anterior cervical discectomy and fusion with hardware instrumentation at the C5-C6 level; previous anterolisthesis at this level has normalized in a postoperative setting. Mild rightward curvature of the cervical spine visible. There are no compression fractures. Mild anterior subluxation noted at the C3-C4 level. There is severe left-sided facet arthropathy at C3-C4 and ankylosis of the right C5-C6 facet joint. The paraspinal soft tissues are unremarkable. The vertebral artery flow voids are maintained. The imaged lung apices are grossly clear. CERVICOMEDULLARY JUNCTION AND VISUALIZED POSTERIOR FOSSA: The craniovertebral junction and imaged portions of the brain parenchyma appear normal. No cord signal abnormality or syrinx is seen. SPINAL LEVELS: C2-C3: No disc pathology. Moderate left-sided facet arthrosis. No central canal stenosis or significant foraminal narrowing. C3-C4: Anterolisthesis and unroofing of the disc with endplate spurring and significant left-sided facet arthropathy, as on prior imaging with some progression. Findings result in severe left foraminal encroachment, also in part due to uncovertebral joint spurring. C4-C5: Very mild posterior disc bulge with [id number] facet arthropathy. No central canal stenosis. Very mild foraminal narrowing. C5-C6: Fusion changes anteriorly without central canal stenosis. Hypertrophic facet arthropathy and mild right foraminal narrowing. C6-C7: Shallow disc-osteophyte complex with [id number] loss of disc height, as on prior imaging. No central canal stenosis. Stable severe left foraminal narrowing. C7-T1: No disc pathology. No central canal stenosis or foraminal narrowing. IMPRESSION: Status post anterior cervical discectomy and fusion with hardware in place at the C5-C6 level. Stable anterolisthesis and unroofed disc at the C3-C4 level. Stable severe left foraminal narrowing due to bony encroachment. Stable moderate spondylosis at the C6-C7 level with severe left foraminal narrowing. XR SHOULDER, LEFT 06/22/25 CLINICAL INFORMATION: M25.512 - Pain in left shoulder COMPARISON: None available. TECHNIQUE: AP external rotation, Grashey, scapular Y, and axillary views of the left shoulder. FINDINGS: Normal bone mineralization. No fracture, dislocation, or suspicious bone lesion. Normal alignment. The glenohumeral joint is normal. The AC joint demonstrates mild to moderate spurring most significant superiorly. No significant undersurface spurring. There is a type II acromion. No undersurface spurring. The subacromial space is preserved. Remainder of the soft tissue and bony structures appear normal. IMPRESSION: 1. No acute bony abnormalities of the left shoulder. 2. Moderate superior surface spurring of the AC joint. Assessment & Plan Assessment & Plan (1) Cervical post-laminectomy syndrome: Code(s): M96.1 - Postlaminectomy syndrome, not elsewhere classified Category: Medical (2) Myofascial neck pain: Code(s): M54.2 - Cervicalgia Category: Medical (3) Cervical spondylosis: Code(s): M47.812 - Spondylosis without myelopathy or radiculopathy, cervical region Category: Medical (4) Hx of fusion of cervical spine: Onset Date: ~03/2022 Code(s): Z98.1 - Arthrodesis status Category: Surgical Plan The plan for chronic neck pain includes continuing with cervical paraspinal trigger point injections to manage pain and improve function. The patient will continue using muscle relaxants as part of the pain management strategy. Patient is status post bilateral upper trapezius and bilateral rhomboids trigger point injections. Patient tolerated procedure well and was discharged in stable condition with discharge instructions. Patient is aware that he can not receive another injections in these areas for another three months. Patient is aware to monitor for side effects. Continue gentle stretching exercises, good posture, adequate hydration, heat therapy, massage therapy, and muscle relaxants as needed. Acupuncture referral placed for chronic neck and myofascial pain. Follow-up appointments will be scheduled to monitor the effectiveness of the treatment and adjust as necessary. Patient was informed and verbally consented to the use of an ambient scribe for clinic note documentation during this visit. Orders: Orders XR shoulder LT min 2V Today M25.512 - Pain in left shoulder AMB Trigger Point Injection Today M54.2 - Cervicalgia, M96.1 - Postlaminectomy syndrome, not elsewhere classified Referrals Acupuncture Referral M47.812 - Spondylosis without myelopathy or radiculopathy, cervical region, M54.2 - Cervicalgia, M96.1 - Postlaminectomy syndrome, not elsewhere classified, Z98.1 - Arthrodesis status Patient Instructions: I discussed with the patient the findings of the x-ray, which showed moderate arthritis of the acromioclavicular joint, but emphasized that the primary source of pain is the neck. We agreed to proceed with cervical paraspinal trigger point injections to address the neck pain and muscle stiffness and spasms. I explained the procedure, its benefits, and potential risks, and the patient consented to proceed. - Continue taking prescribed muscle relaxants as directed. - Attend scheduled follow-up appointments to assess treatment progress. - Report any new or worsening symptoms to the clinic immediately. Coding Level of Care Code Est Pt Level 4 (02363) Diagnoses Cervical post-laminectomy syndrome M96.1 Myofascial neck pain M54.2 Cervical spondylosis M47.812 Hx of fusion of cervical spine Z98.1 CPT Codes Therapeutic Injection - Ther Injection 2: 22839-Eqmpzus Point Injection 3 or more ([id number])
[2025-06-22 13:52] VITALS: BP 142/61; PULSE 79; BMI 24.4
[2025-06-22 14:24] VITALS: BP 146/65; PULSE 80
== END 2025-06-22 14:22 | disposition home or self-care (01) ==
LOC: HO.PMC 13:46
PROVIDERS: PCP Physician Assistant; Visit Provider Nurse Practitioner Family
DX: M96.1 Postlaminectomy syndrome, not elsewhere classified (principal); M54.2 Cervicalgia; M47.812 Spondylosis without myelopathy or radiculopathy, cervical region; Z98.1 Arthrodesis status; M79.18 Myalgia, other site
CPT/HCPCS: 20553; 99214

== ENCOUNTER 2025-07-03 16:00 | Outpatient (REF) | payer OTHER, SELFPAY ==
--- NOTE | ~2025-07-03 | US_ITS ---
EXAMINATION: US THYROID HISTORY: E04.2 - Nontoxic multinodular goiter TECHNIQUE: Real-time grayscale ultrasound imaging was performed and images were reviewed. COMPARISON: Comparison is made with the prior examination dated 03/16/2025. FINDINGS: SIZE: The right thyroid lobe measures 6.3 x 2.5 x 2.6 cm. The left thyroid lobe measures 4.9 x 1.7 x 2.0 cm. The isthmus measures 5 mm. FLOW: Flow to the gland is increased. ECHOGENICITY: The echotexture of the gland is heterogeneous. NODULES: Multiple nodules are again identified in both thyroid lobes as described below: Nodule #: 1 Location: Upper pole of the right thyroid lobe measuring 0.8 x 0.6 x 0.7 cm (not seen previously). Shape: Wider than tall (0 points) Margins: Smooth (0 points) Echotexture: Indeterminate (1 point) Composition: Mostly solid (2 points) Calcifications: None (0 points) Total points: 3 TIRADS: TR3: Mildly suspicious. Nodule #: 2 Location: Midportion of the right thyroid lobe measuring 1.3 x 1.0 x 1.1 cm (previously 1.4 x 1.0 x 1.1 cm). Shape: Wider than tall (0 points) Margins: Smooth (0 points) Echotexture: Indeterminate (1 point) Composition: Indeterminate (2 points) Calcifications: None (0 points) Total points: 3 TIRADS: TR3: Mildly suspicious. Nodule #: 3 Location: Lower pole of the right thyroid lobe measuring 2.7 x 2.3 x 2.4 cm (previously 2.9 x 2.3 x 2.9 cm). Shape: Wider than tall (0 points) Margins: Smooth (0 points) Echotexture: Isoechoic (1 point) Composition: Solid (2 points) Calcifications: None (0 points) Total points: 3 TIRADS: TR3: Mildly suspicious. Nodule #: 4 Location: Midportion of the left thyroid lobe measuring 0.5 x 0.4 x 0.4 cm (previously 0.8 x 0.4 x 0.7 cm). Shape: Wider than tall (0 points) Margins: Smooth (0 points) Echotexture: Indeterminate (1 point) Composition: Mixed (1 point) Calcifications: None (0 points) Total points: 2 TIRADS: TR2: Not suspicious Nodule #: 5 Location: Lower pole of the left thyroid lobe measuring 1.9 x 0.9 x 1.1 cm (previously 1.1 x 0.7 x 1.0 cm). Shape: Wider than tall (0 points) Margins: Smooth (0 points) Echotexture: Isoechoic (1 point) Composition: Solid (2 points) Calcifications: None (0 points) Total points: 3 TIRADS: TR3: Mildly suspicious. US/US thyroid IMPRESSION: Multinodular thyroid gland without significant change. Continued follow-up is recommended. ACR TI-RADS Guidelines TR1 (0 points): Benign. No follow-up or biopsy required TR2 (2 points): Not Suspicious. No biopsy or follow up indicated TR3 (3 points): Mildly Suspicious. FNA if >= 2.5 cm, Follow if >= 1.5 cm TR4 (4-6 points): Moderately Suspicious. FNA if >= 1.5 cm, Follow if >= 1.0 cm TR5 (>=7 points): Highly Suspicious. FNA if >= 1.0 cm, Follow if >= 0.5 cm Electronically signed by: Chris Coronado MD 07/04/2025 07:11 AM EDT
--- OUTSIDE RECORDS SUMMARY | 2025-07-03 18:42 | XMS_ITS | Clinical Summary ---
Author Organization [facility] [address] [place] [address] [place] [phone] Phone Care Team Providers Care Ict Customer Support Officer Name Role Phone Paulina Dietz MD Primary Care Provider [phone] Allergies Active Allergy Reactions Criticality Noted Date [...] nodule 11/14/2024 Overview (11/14/2024): initial discovery 09/2024, [facility], CT for URI Pulmonary nodules 11/14/2024 Overview (01/30/2025): 1.36cm, at [facility] , following with Dr. Richey, pulmonology Asthma 03/09/2018 Allergic rhinitis 09/02/2017 Chronic obstructive pulmonar y disease (CMS/HCC V24, CMS/HCC V28) 09/02/2017 Prostatism 01/19/2017 Meniscus, medial, derangement [...] Date Site/Laterality Comments OTHER SURGICAL HISTORY PROCEDURE: VT ARTHRS KNEE W/MENISCECTOMY MED&LAT W/SHAVING; COMMENT: Dr. Cruz, 08/27/06, L knee ESOPHAGOGASTRODUODENOSCOPY 2013 PROCEDURE: VT EGD TRANSORAL BIOPSY SINGLE/MULTIPLE; COMMENT: visually normal; duodenal bx: normal. COLONOSCOPY 2013 PROCEDURE: VT COLONOSCOPY FLX DX W/COLLJ SPEC WHEN PFRMD; COMMENT: normal Medical History Medical History Date Comments Allergic rhinitis 09/02/2017 DX:Allergic rh initis Celiac sprue 08/20/2010 DX:Celiac sprue; COMMENT: Duodenal bx and TTG negative Aug, 2014. Chronic obstructive pulmonar y disease (CMS/HCC V24, CMS/HCC V28) 09/02/2017 DX:Chronic obstructive pulm onary disease [...] 2:00 PM EST Office Visit Adult Medicine [facility] [address] [place] [phone] Paulina Dietz MD [address] [place] [phone] Health Maintenance Due Date Last Done Comments Pneumococcal Vaccine: 50+ Years (1 of 2 - PCV) 02/25/1984 Zoster Vaccines (1 of 2) 2015 Cholesterol Screening (Lipid Panel) 10/04/2022 Colorectal Cancer Screening: Colonoscopy 10/04/2022 HIV Screening 10/04/2022 Hepatitis C Screening 10/04/2022 Social Influencers of Health Screening 10/04/2022 Depression Screening 10/26/2024 RSV Immunization Adult Patients (1 - Risk 60-74 years 1-dose series) 2025 COVID-19 Vaccine (3 - 2024- season) 2025 11/19/2020, 10/31/2020 Influenza Vaccine (#1) 2025 , 09/25/2022, 09/16/2021, [...] patient's age to complete this topic Insurance [employer] [facility] Care Teams Ict Customer Support Officer Relationship Specialty Start Date End Date Paulina Dietz MD [address] [place] [address] [facility] - General 03/12/04
== END 2025-07-03 16:01 | disposition home or self-care (01) ==
LOC: HO.US 16:00
PROVIDERS: Visit Provider Student in an Organized Health Care Education/Training Program
DX: E04.2 Nontoxic multinodular goiter (principal)
CPT/HCPCS: 76536

== ENCOUNTER → 2025-07-03 16:03 | Outpatient (BNV) | payer OTHER, SELFPAY | PROVIDERS: Visit Provider Radiology Diagnostic Radiology | DX: E04.2 Nontoxic multinodular goiter (principal) | CPT/HCPCS: 76536 ==

== ENCOUNTER 2025-07-04 16:06 | Outpatient (REF) | payer OTHER, SELFPAY ==
--- NOTE | ~2025-07-04 | CT_ITS ---
CLINICAL HISTORY: R91.1 - Solitary pulmonary nodule CT chest without contrast Comparison: CT/REG/SR - CT CHEST WITHOUT IV CONTRAST - 01/18/25 07:[address]/OT/OH/SR - CT CHEST W IV CON - 10/10/24 12:48 EST Findings: The heart is normal size. The visualized thyroid and mediastinum are unremarkable. Spiculated subsolid apical segment right lower lobe nodule measuring up to 14.5 mm, similar to prior. No new or increasing nodule. No effusion. No pneumothorax. Visualized upper abdomen demonstrates fecal retention throughout the abdomen. No acute osseous finding. Impression: Stable, spiculated subsolid right lower lobe nodule. PET has been recommended for this on previous examinations. Malignancy not excluded. This document has been electronically signed by: Alex Humphrey MD on 07/05/2025 12:28:02
--- OUTSIDE RECORDS SUMMARY | 2025-07-04 18:10 | XMS_ITS | Clinical Summary ---
Author Organization [facility] [address] [place] [address] [place] [phone] Phone Care Team Providers Care Hose Wrapper Name Role Phone Paulina Dietz MD Primary Care Provider [phone] Allergies Active Allergy Reactions Criticality Noted Date [...] nodule 11/14/2024 Overview (11/14/2024): initial discovery 09/2024, [facility], CT for URI Pulmonary nodules 11/14/2024 Overview (01/30/2025): 1.36cm, at [facility] , following with Dr. Richey, pulmonology [...] Date Site/Laterality Comments OTHER SURGICAL HISTORY PROCEDURE: CT ARTHRS KNEE W/MENISCECTOMY MED&LAT W/SHAVING; COMMENT: Dr. Cruz, 08/27/06, L knee ESOPHAGOGASTRODUODENOSCOPY 2013 PROCEDURE: CT EGD TRANSORAL BIOPSY SINGLE/MULTIPLE; COMMENT: visually normal; duodenal bx: normal. COLONOSCOPY 2013 PROCEDURE: CT COLONOSCOPY FLX DX W/COLLJ SPEC WHEN PFRMD; [...] Visit Adult Medicine [facility] [address] [place] [phone] Paulina Dietz MD [address] [place] [phone] Health Maintenance Due Date Last Done Comments [...] patient's age to complete this topic Insurance [place] [employer] [facility] Care Teams Hose Wrapper Relationship Specialty Start Date End Date Paulina Dietz MD [address] [place] [address] [facility] - General 03/12/04
== END 2025-07-04 16:07 | disposition home or self-care (01) ==
LOC: HO.CT 16:06
PROVIDERS: PCP Physician Assistant; Visit Provider Internal Medicine Pulmonary Disease
DX: R91.1 Solitary pulmonary nodule (principal)
CPT/HCPCS: 71250

== ENCOUNTER → 2025-07-04 16:08 | Outpatient (BNV) | payer OTHER, SELFPAY | PROVIDERS: PCP Physician Assistant; Visit Provider Radiology Vascular & Interventional Radiology | DX: R91.1 Solitary pulmonary nodule (principal) | CPT/HCPCS: 71250 ==

== ENCOUNTER 2025-08-03 10:30 | Outpatient (AMB) | payer OTHER, SELFPAY ==
[2025-08-03 10:36] VITALS: BP 102/62; PULSE 81; O2SAT 96; BMI 24.4
--- NOTE | 2025-08-03 10:36 | MHC.OFFVIS ---
Vital Signs 08/03/25 10:36 Height 5 ft 11 in Weight 175 lb BMI 24.4 BP 102/62 Blood Pressure Location Rt brachial Position Sitting Pulse 81 Pulse Source Pulse Oximeter Pulse Oximetry (%) 96 Oxygen Delivery Method Room Air Intake Visit Reasons: Enviromental allergies Allergies gluten Allergy (Intermediate, Verified 08/03/25 10:41) Gastrointestinal Upset-celiac disease Penicillins (PCN) Allergy (Intermediate, Verified 08/03/25 10:41) HIVES HPI HPI Enviromental allergies: Details: 60-year-old gentleman, lifetime nonsmoker, followed for underlying severe persistent allergic asthma. He continues on Fasenra and Advair 500 with good symptomatic control of his asthma. He rarely uses albuterol MDI. He denies recent exacerbations. He had 2nd follow-up CT chest scan in six-month that shows stable 14-15 mm nodule. [facility] Medical History (Updated 06/22/25 @ 11:20 by BETTINA Leger) Left shoulder pain Multinodular goiter History of herniated intervertebral disc BPH (benign prostatic hyperplasia) Celiac disease Post-dural puncture headache Foraminal stenosis of cervical region Cervical spondylosis with radiculopathy Bilateral primary osteoarthritis of knee Asthma Sinusitis Environmental allergies Surgical History Hx of colonoscopy History of esophagogastroduodenoscopy (EGD) Hx of fusion of cervical spine (~03/2022) H/O left knee surgery H/O right knee surgery Social History Housing: House Are you a primary career specialist to a significant other at home: No Do you presently have visiting nurse or other home services: No Alcohol intake: current Alcohol intake frequency: does not drink Patient Tobacco Use Status: Never used Tobacco e-Cigarette/Vaping Use: Never Used service: No Current occupational status: employed 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 Cognitive needs: No Hearing needs: No Vision needs: No Review of Systems Const Denies daytime sleepiness, Denies excessive sweating, Denies fatigue, Denies fever(s), Denies lethargy, Denies malaise, Denies night sweats, Denies snoring and Denies weight loss Eyes Denies blurry vision and Denies itchy eyes ENT Denies nasal congestion, Denies post nasal drip, Denies sinus pain, Denies sinus pressure and Denies other ( Thrush) Card Denies chest pain, Denies pedal edema, Denies dyspnea, Denies orthopnea and Denies paroxysmal nocturnal dyspnea Resp Denies cough, Denies hemoptysis, Denies excessive phlegm production, Denies dyspnea, Denies snoring and Denies wheezing GI Denies abdominal pain and Denies heartburn Musc Denies myalgias, Denies arthralgias and Denies joint swelling Skin/Breast Denies rash Neuro Denies memory loss and Denies seizure-like activity Psych Denies abnormal sleep pattern, Denies anxiety and Denies memory loss Endo Denies excessive sweating, Denies fatigue and Denies heat intolerance Maicol/Lymph Denies easy bruising Aller/Immun Denies itchy eyes, Denies seasonal rhinorrhea and Denies wheezing Physical Exam Vital Signs: Last Vital Signs Pulse 81 08/03/25 10:36 BP 102/62 08/03/25 10:36 Pulse Ox 96 08/03/25 10:36 Oxygen Delivery Method Room Air 08/03/25 10:36 BMI result Body Mass Index 24.4 Const General: no acute distress and alert Nutritional Appearance: not obese Orientation/consciousness: Other orientation findings ( oriented) HEENT Head: Yes atraumatic Eyes General: appearance normal, both eyes and all related structures Sclerae: sclerae normal EOM: EOMs intact bilaterally Neck Neck: Yes supple Lymphatic: no lymphadenopathy noted Resp Effort & Inspection: normal respiratory effort and no use of accessory muscles Auscultation: clear to auscultation bilaterally Cardio Rate: regular rate Rhythm: regular rhythm Heart sounds: no gallops, no murmurs and no rubs Skin General skin exam: other ( warm) Extrem General: No clubbing, No cyanosis and No edema Assessment & Plan Assessment & Plan (1) Severe persistent asthma: Code(s): J45.50 - Severe persistent asthma, uncomplicated Category: Medical Plan: Well controlled on current regimen of Fasenra, Advair, and albuterol MDI. Continue current regimen. (2) Environmental allergies: Code(s): Z91.09 - Other allergy status, other than to drugs and biological substances Category: Medical Plan: Well controlled on Fasenra. Continue current regimen. (3) Pulmonary nodule/lesion, solitary: Code(s): R91.1 - Solitary pulmonary nodule Category: Medical Plan: Results of a 2nd follow-up CT chest from June of 2024 stable 14-15 mm pulmonary nodule, will repeat CT chest in 6 months. Coding Level of Care Code Est Pt Level 4 (17842) Complex EM visit Add On G2211 Diagnoses Severe persistent asthma J45.50 Environmental allergies Z91.09 Pulmonary nodule/lesion, solitary R91.1
== END 2025-08-03 10:48 | disposition home or self-care (01) ==
PROVIDERS: PCP Physician Assistant; Visit Provider Internal Medicine Pulmonary Disease
DX: J45.50 Severe persistent asthma, uncomplicated (principal); Z91.09 Other allergy status, other than to drugs and biological substances; R91.1 Solitary pulmonary nodule
CPT/HCPCS: 99214; G2211

== ENCOUNTER → 2025-08-03 10:30 | Outpatient (BNVA) | payer OTHER, SELFPAY | PROVIDERS: PCP Physician Assistant; Visit Provider Internal Medicine Pulmonary Disease | DX: R91.1 Solitary pulmonary nodule (principal); J45.50 Severe persistent asthma, uncomplicated; Z91.09 Other allergy status, other than to drugs and biological substances | CPT/HCPCS: 99212 ==

== ENCOUNTER → 2025-09-04 10:59 | Outpatient (BNVA) | payer OTHER, SELFPAY | PROVIDERS: PCP Physician Assistant; Visit Provider Internal Medicine | DX: Z13.89 Encounter for screening for other disorder (principal) | CPT/HCPCS: 99202 ==

== ENCOUNTER 2025-09-05 10:30 | Outpatient (AMB) | payer OTHER, SELFPAY ==
[2025-09-05 10:37] VITALS: BP 130/80; PULSE 77; TEMP 36.3; O2SAT 98; BMI 25.4
--- NOTE | 2025-09-05 10:37 | A.OFFPC_ITS ---
Vital Signs 09/05/25 10:37 Height 5 ft 11 in Weight 182 lb 6 oz BMI 25.4 BP 130/80 Blood Pressure Location Lt brachial Position Sitting Pulse 77 Pulse Source Pulse Oximeter Temp 97.3 F Temp Source Temporal Artery Scan Pulse Oximetry (%) 98 Oxygen Delivery Method Room Air Intake Visit Reasons: 6 month f/u Allergies gluten Allergy (Intermediate, Verified 08/03/25 10:41) Gastrointestinal Upset-celiac disease Penicillins (PCN) Allergy (Intermediate, Verified 08/03/25 10:41) HIVES Tobacco use date assessed: 03/01/25 Dental Screening Dental Screen Date: 09/05/25 Did you have a dental visit in the last 12 months?: Yes Did you have a dental problem in the last 6 months where you did not have access to dental care?: No Was dental information given to patient?: Patient has dentist HPI 6 month f/u HPI Details Patient is a 60-year-old male here today for a follow-up visit. Patient has a past medical history significant for asthma, allergies, cervical disc disease, and osteoarthritis of the knees. .. Thyroid nodule: Patient followed by [facility], has had a repeat ultrasound of the thyroid showing stable results. Recommended surveillance. -->Had a thyroid ultrasound in October which did show a right-sided thyroid nodule amenable to biopsy. Will send for ultrasound thyroid biopsy and refer to endocrinology for evaluation. Otherwise denies any difficulty with swallowing or change in voice. .. Asthma: Has been well controlled on his maintenance inhaler and p.r.n. use of his albuterol inhaler. CT chest in 06/2025. Patient does Spiculated subsolid atypical segment right lower lobe nodule measuring 14.5mm which has been followed by his employment coordinator. Laboratory Tests 04/25/25 13:34 TSH 0.48 PFSH Medical History Left shoulder pain Multinodular goiter History of herniated intervertebral disc BPH (benign prostatic hyperplasia) Celiac disease Post-dural puncture headache Foraminal stenosis of cervical region Cervical spondylosis with radiculopathy Bilateral primary osteoarthritis of knee Asthma Sinusitis Environmental allergies Surgical History Hx of colonoscopy History of esophagogastroduodenoscopy (EGD) Hx of fusion of cervical spine (~03/2022) H/O left knee surgery H/O right knee surgery Social History Housing: House Are you a primary health care administrator to a significant other at home: No Do you presently have visiting nurse or other home services: No Alcohol intake: current Alcohol intake frequency: does not drink Patient Tobacco Use Status: Never used Tobacco e-Cigarette/Vaping Use: Never Used service: No Current occupational status: employed Current occupation: [employer] Cognitive needs: No Hearing needs: No Vision needs: No Questionnaire PHQ-9 Over the last 2 weeks, how often have you been bothered by any of the following problems? 1. Little interest or pleasure in doing things: not at all 2. Feeling down, depressed, or hopeless: not at all 3. Trouble falling or staying asleep, or sleeping too much: several days 4. Feeling tired or having little energy: several days 5. Poor appetite or overeating: not at all 6. Feeling bad about yourself - or that you are a failure or have let yourself or your family down: not at all 7. Trouble concentrating on things, such as reading the newspaper or watching television: several days 8. Moving or speaking so slowly that other people could have noticed. Or the opposite - being so fidgety or restless that you have been moving around a lot more than usual: not at all 9. Thoughts that you would be better off or of hurting yourself in some way: not at all Total score: 3 66670 - PHQ-9 Billing: Yes Source: Developed by Drs. Chris Limon, Aysha Weinstein, JoseJ Rob and colleagues, with an educational ayesha from [employer]. Thrive Questionnaire Date Thrive assessed: 03/01/25 I am a: Patient What is your living situation today?: I have a steady place to live Within the past 12 months, did the food you bought not last and you didn't have the money to get more?: Never true Within the past 12 months, did you worry whether your food would run out before you got money to buy more?: Never true Do you have trouble paying for medicines?: No Do you have trouble getting transportation to medical appointments?: No Do you have trouble paying your heating and electricity bill?: I choose not to answer this question Do you have trouble taking care of your child, family member or friend?: No Do you have trouble with day-to-day activities such as bathing, preparing meals, shopping, managing finances, etc.?: No Are you currently unemployed and looking for a job?: No Are you interested in more education?: Yes Please select the resources that you would like help with: None Currently or been in a relationship where the following occur: No concerns reported THRIVE Score: 0 AUDIT C Alcohol Use Questionnaire (AUDIT-C) 1. How often do you have a drink containing alcohol?: 2-4 times a month 2. How many drinks containing alcohol do you have on a typical day when you are drinking?: 1 or 2 3. How often do you have six or more drinks on one occasion?: Never Total Score: 2 TRACY-7 AMB Questionnaire TRACY-7 Date TRACY - 7 assessed: 03/01/25 Feeling nervous, anxious, or on edge: 1 = Several days Not being able to stop or control worryin = Several days Worrying too much about different things: 1 = Several days Trouble relaxin = Several days Being so restless that it is hard to sit still: 1 = Several days Becoming easily annoyed or irritable: 1 = Several days Feeling afraid as if something awful might happen: 0 = Not at all Total TRACY-7 score (0-4 normal; 5-9 mild; 10-14 moderate; 15-21 severe): 6 Source: Developed by Drs. Chris Limon, Aysha Weinstein, Jose J Rob and colleagues, with an educational ayesha from [employer]. Review of Systems Const Denies headache(s) Eyes Denies loss of vision ENT Denies vertigo, Denies dizziness, Denies headache(s) and Denies sore throat Card Denies chest pain, Denies leg edema and Denies lightheadedness Resp Denies cough, Denies hemoptysis and Denies wheezing GI Denies abdominal pain, Denies melena, Denies constipation, Denies diarrhea and Denies vomiting Denies dysuria, Denies urinary frequency and Denies urinary urgency Musc Denies arthralgias, Denies joint swelling, Denies numbness and Denies tingling Neuro Denies Abnormal speech present, Denies behavioral changes, Denies vertigo, Denies dizziness, Denies headache(s), Denies loss of vision, Denies memory loss, Denies numbness and Denies tingling Psych Denies anxiety, Denies behavioral changes, Denies depression, Denies memory loss and Denies panic attacks Miacol/Lymph Denies easy bleeding and Denies easy bruising Aller/Immun Denies wheezing Physical exam (Primary Care) Vital Signs: Last Vital Signs Temp 97.3 F 09/05/25 10:37 Pulse 77 09/05/25 10:37 BP 130/80 09/05/25 10:37 Pulse Ox 98 09/05/25 10:37 Oxygen Delivery Method Room Air 09/05/25 10:37 BMI result Body Mass Index 25.4 Tobacco/Smoking Status: Tobacco use Status Tobacco use date assessed 03/01/25 09/05/25 10:42 Patient Tobacco Use Status Never used Tobacco 09/05/25 10:42 e-Cigarette/Vaping Use Never Used 09/05/25 10:42 PHQ-9: PHQ-9 Score PHQ-9: Total score 3 09/05/25 10:42 Thrive Assessment: Date of Thrive Assessment Date Thrive assessed 03/01/25 09/05/25 10:42 Currently or been in a relationship where the following occur: No concerns reported Const General: healthy appearing, no acute distress, alert and awake Nutritional Appearance: well nourished Orientation/consciousness: oriented to person, oriented to place and oriented to time HENMT Ears: TM's normal bilaterally General nose exam: Normal nasal mucous membranes and turbinates present Eyes Conjunctivae: conjunctivae normal Sclerae: sclerae normal Pupils: Equal, round and reactive pupils present Neck Neck: Yes no lymphadenopathy and Yes no JVD Thyroid: Thyroid normal Carotids: no bruits Resp Effort & Inspection: normal respiratory effort and not tachypneic Auscultation: no crackles, no rales, no rhonchi and no wheezes Cardio Rate: regular rate Rhythm: regular rhythm Heart sounds: no murmurs and normal S1 and S2 GI Palpation (GI): Soft to palpation, nontender, no hepatomegaly and no splenomegaly Auscultation: normal bowel sounds Skin General skin exam: no rashes or lesions noted and dry skin Neuro General: oriented to person, oriented to place and oriented to time Cranial nerves: Yes Equal, round and reactive pupils present Speech: No Abnormal speech present Gait exam (Neuro): Normal gait present Motor exam (neuro): no tremor noted Extrem Right upper extremity: full ROM Left upper extremity: full ROM Right lower extremity: full ROM; no edema Left lower extremity: full ROM; no edema Psych Mental Status: mental status grossly normal Speech and movement: Normal speech and movement present Affect: normal affect Attitude: cooperative Thought process: Normal thought process present Coding Level of Care Code Est Pt Level 4 (04742) Diagnoses Mild persistent asthma, unspecified whether complicated J45.30 Asthma complication type: unspecified Asthma persistence: persistent Asthma severity: mild Thyroid nodule E04.1 Pulmonary nodule/lesion, solitary R91.1 Additional Codes PHQ-9 - 26689 - PHQ-9 Billing: Yes ([id number]) Assessment & Plan Assessment & Plan (1) Asthma: Comment: follows /[facility] Pulmonology-stable Code(s): J45.909 - Unspecified asthma, uncomplicated Category: Medical Qualifiers: Asthma complication type: unspecified Asthma persistence: persistent Asthma severity: mild Qualified Code(s): J45.30 - Mild persistent asthma, uncomplicated Plan: Patient reports his asthma is fairly well controlled with current management. He reports his allergies are the usual culprit to exacerbate his asthma He has Not had any asthma exacerbations or nighttime awakenings with asthma symptoms. (2) Thyroid nodule: Code(s): E04.1 - Nontoxic single thyroid nodule Category: Medical Plan: Patient now followed by rib stiffener and heel dipper/laboratory disc specialist. He has undergone a repeat ultrasound of his thyroid which showed stable findings. Recent TSH stable (3) Pulmonary nodule/lesion, solitary: Code(s): R91.1 - Solitary pulmonary nodule Category: Medical Plan: Followed by [facility], Continue with planned CT imaging /surveillance with his employment coordinator. Orders: Orders Varicella IgG Antibody Today Z78.9 - Other specified health status Medications: Refilled fluticasone propion-salmeterol 500-50 mcg/dose 1 inh inhalation BID 60 ea 2RF J45.909 - Unspecified asthma, uncomplicated
--- OUTSIDE RECORDS SUMMARY | 2025-09-05 12:07 | XMS_ITS | Clinical Summary ---
Author Organization [facility] [address] [place] [address] [place] [phone] Phone Care Team Providers Care Water Pollution Control Technician Name Role Phone Paulina Dietz MD Primary Care Provider [phone] Allergies Active Allergy Reactions Criticality Noted Date [...] nodule 11/14/2024 Overview (11/14/2024): initial discovery 09/2024, [facility], [place] for URI Pulmonary nodules 11/14/2024 Overview (01/30/2025): 1.36cm, at [facility] , following with Dr. Richey, pulmonology Asthma 03/09/2018 Allergic rhinitis 09/02/2017 Chronic obstructive pulmonar y disease (CMS/HCC V24, CMS/HCC V28) 09/02/2017 Prostatism 01/19/2017 Meniscus, medial, derangement 12/31/2010 Celiac sprue 08/20/2010 Overview (09/02/2024): Duodenal bx and TTG negative Aug, 2014. IBS (irritable bowel syndrome) 08/20/2010 Immunizations Immunization Administration Dates Next Due H1N1 Inj Preservative [...] Date Site/Laterality Comments OTHER SURGICAL HISTORY PROCEDURE: CO ARTHRS KNEE W/MENISCECTOMY MED&LAT W/SHAVING; COMMENT: Dr. Cruz, 08/27/06, L knee ESOPHAGOGASTRODUODENOSCOPY 2013 PROCEDURE: CO EGD TRANSORAL BIOPSY SINGLE/MULTIPLE; COMMENT: visually normal; duodenal bx: normal. COLONOSCOPY 2013 PROCEDURE: CO COLONOSCOPY FLX DX W/COLLJ SPEC WHEN PFRMD; [...] 2:00 PM EST Office Visit Adult Medicine [facility] [place] [address] [place] [phone] Paulina Dietz MD [address] [place] [phone] Health Maintenance Due Date Last Done Comments Colorectal Cancer Screening: Colonoscopy 1965 Pneumococcal Vaccine: 50+ Years (1 of 2 - PCV) 02/25/1984 RSV Immunization Adult Patients (1 - Risk 50-74 years 1-dose series) 2015 Zoster Vaccines (1 of 2) 2015 Cholesterol Screening (Lipid Panel) 10/04/2022 HIV Screening 10/04/2022 Hepatitis C Screening 10/04/2022 Social Influencers of Health Screening 10/04/2022 Depression Screening 10/26/2024 COVID-19 Vaccine ( season) 2025 11/19/2020, 10/31/2020 Influenza Vaccine (#1) [...] patient's age to complete this topic Insurance [employer] [facility] Care Teams Water Pollution Control Technician Relationship Specialty Start Date End Date Paulina Dietz MD [address] [place] [address] [facility] - General 03/12/04
== END 2025-09-05 11:00 | disposition home or self-care (01) ==
LOC: HO.HMCH 10:31
PROVIDERS: PCP Physician Assistant; Visit Provider Physician Assistant
DX: J45.30 Mild persistent asthma, uncomplicated (principal); E04.1 Nontoxic single thyroid nodule; R91.1 Solitary pulmonary nodule

== ENCOUNTER → 2025-09-05 10:30 | Outpatient (BNVA) | payer OTHER, SELFPAY | PROVIDERS: PCP Physician Assistant; Visit Provider Physician Assistant | DX: J45.30 Mild persistent asthma, uncomplicated (principal); E04.1 Nontoxic single thyroid nodule; R91.1 Solitary pulmonary nodule | CPT/HCPCS: 96127 ==

== ENCOUNTER → 2025-09-06 10:52 | Outpatient (BNVA) | payer OTHER, SELFPAY | PROVIDERS: PCP Physician Assistant; Visit Provider Internal Medicine | DX: Z13.89 Encounter for screening for other disorder (principal) | CPT/HCPCS: 99213 ==